=== PATIENT | female | born 1950 | race Caucasian/White ===

== ENCOUNTER 2016-11-09 10:17 | Observation (INO) | payer MEDICARE, MEDICAID ==
[~2016-11-09] VITALS: Ht 165.1 cm; Wt 44.9 kg
[~2016-11-09 10:17] MED LIST: AMLO5TAB PO; APAP ARTHRITIS650 MG PO; ARTHRITIS PAIN PO; ASPIRIN81 MG PO; AZITHROMYCIN250 M1 PO; EQUATE ARTHRITIS PO; IBUPROFEN200 MG PO; NOMEDS *; OMEPRAZOLE20 M1 PO; OMNICEF 300 MG300 MG PO; PREDNISONE 10MG10 MG PO; PREDNISONE 20MG20 MG PO; PREDNISONE20 MG PO; PROMETHAZINE D240 ML PO; SYMBICORT1 AE1 IH; TRAMADOL 50MG T50 MG PO; VENTOLIN H0.09 MG/AC IH; ZITHROMAX TRI-500 MG PO; ZITHROMAX Z-PA250 M1 PO; ZITHROMAX Z-PA250 M2 PO
[2016-11-09 10:19] VITALS: BP 14/76; BP 140/76
--- NOTE | 2016-11-09 10:30 | Emergency Room Report ---
History of Present Illness Time Seen by [id number] Presenting Problem in Triage Pt arrived:Wheelchair Presenting Problem:PT C/O OF CHEST PAIN THAT STARTED THIS AM AROUND 0830. PAIN IS MIDSTERNAL SQUEEZING IN NATURE. 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 N Clinical Suspician of Infection? N Mental Status: 1 - Regular (Normal Baseline) Sepsis Risk:Possible Sepsis Risk Have you (or family members/close friends) recently traveled outside the [place]? N If Yes, where/when: Have you had exposure to infectious disease within the past month? N TB? Other? Specify: Source patient, RN notes reviewed, family, RN/MD Exam Limitations no limitations Comment This 66-year-old feel patient arriving to the emergency room with midsternal chest pain radiating to the interscapular area since 8:30 AM, grade 11/10. She took 4 baby aspirins which partially relieved her pain to 5/10. Patient has a history of interstitial lung disease, with occasional pleuritic type chest pains, however she advised this type of chest pain is totally different from anything she has ever experienced before. She is also complaining with some diaphoresis and mild shortness of breath with exertion. Patient denies any previous cardiac workup, any previous history of coronary artery disease. She is not oxygen dependent. Cardiac Chest Pain Chest pain indicative of cardiac Yes Timing/Duration 1-3 hours Severity/Quality severe Location central Chest Pain Radiation no radiation Activities at Onset light activity Modifying Factors worse with lying down, worse with movement, improves with oxygen, worse with palpation, improves with rest Timing/Duration this morning Severity moderate Modifying Factors Improves With: oxygen, rest. Worsens With: movement, palpatioin, lying down. Associated Symptoms chest pain, weakness ALLERGIES Coded Allergies: clindamycin (I-HIVES 11/03/16) Home Medications Discontinued Scripts Azithromycin (Zithromax) 250 MG PO DAILY #6 TAB Prov: 03/21/16 DC: 11/09/161747 Prednisone (Prednisone 20MG) 20 MG PO DAILY #5 TAB Prov: 03/21/16 DC: 08/14/17 1748 Reported Medications Aspirin 81 MG PO DAILY Amlodipine Besylate (Amlodipine) 5 MG PO DAILY BUDESONIDE/FORMOTEROL FUMARATE (Symbicort 160-4.5 Mcg Inhaler) 1 PUFF IH BID Indomethacin 50 MG PO TID #45 Famotidine (Famotidine 20MG) 20 MG PO BID #60 History Medical History General CAD? No Angina: No [place]: No Hypertension? Yes Hyperlipidemia? No CHF? No DVT? No PE? No COPD? No Asthma? No Anemia? No GERD? Yes Gastric ulcers? Yes GI Bleed? No Hernia? No Thyroid Problems? No Hypothyroidism? No CVA? Yes Seizures? No Diabetes? No Renal Insuffiency? No End Stage Renal Disease? No UTI? No Stones? No BPH? No GB Disease: No Nephritic Syndrome? No Asplenia? No Hepatitis? No Sickle Cell Disease? No Arthritis? Yes Migraines? No Cataracts? Yes Glaucoma? No MRSA? No TB? No Cancer? No More? Yes Additional hx: interstitial lung disease - followed by Dr Malcolm DURAN G[facility] [employer]GIA Immunization Hx DT/Tetanus Unknown Flu 2015-17FSN Pneumonia Received In Past Surgical Hx Previous Surgery?Y CARARACT RIGHT EYE Family History Family Hx Diabetes Yes CAD No Hypertension Yes Hyperlipidemia No Cancer Yes TB No Social History Smoking Hx Smoker: Never Smoker Tobacco: No Packs/day N/A Alcohol Alcohol: No Review of Systems All Other Systems Reviewed and Negative Cardiovascular chest pain Physical Exam Vital Signs Vital Signs Date Time Temp Pulse Resp B/P Pulse O2 O2 Flow FiO2 Ox Delivery Rate 11/09 1419 99.0 105 18 141/65 96 ROOM AIR 11/09 1412 99.0 77 23 131/37 97 11/09 1403 105 11/09 1403 99.0 105 18 141/65 11/09 1403 97 ROOM AIR 11/09 1320 77 23 131/37 97 11/09 1232 77 23 128/62 97 11/09 1152 77 23 139/69 97 11/09 1111 97 11/09 1109 99.0 90 23 146/66 97 11/09 1019 99.6 108 20 140/76 99 General Appearance normal appearance, WD/WN, no apparent distress Neck normal inspection, non-tender, supple, full range of motion Respiratory Status Yes: trachea midline, chest symmetrical, non tender chest. No: respiratory distress. Lung Sounds bilateral: normal breath sounds, lungs clear. 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 No Comment 1145am - case discussed with Dr. Choudhury, advised of patient's presentation, findings, comorbid conditions, agreeable with admission. Dr. Choudhury requested cardiology to be contacted and consulted on this case. 1150am - case discussed with LULY Negron who will evaluate patient in the ER and coordinate care with Dr. Juno Perkins. Care transferred to Dr. Choudhury and Dr. Perkins at this time. I will write temporary, breech, admission orders per hospital protocol. Patient's arrival to the floor that units of they will contact PCP/conveyor installer in order to obtain full inpatient admission orders. Prior to transfer the floor the patient will have a CT scan of the thorax to rule out a PE. She appears medically stable, in no acute distress at this time. Results/Orders Laboratory Tests 11/09/16 1416: Creatine Kinase 68, CK-MB (CK-2) Rel Index 1.2, CK and CKMB Interp 0.8, Troponin I < 0.02 11/09/16 1025: B-Natriuretic Peptide 9, Amylase 46, Lipase 83, TSH 4.37 H, Free T4 Index 5.2 L, Thyroxine (T4) 6.6, T3 Uptake 32 11/09/16 1025: Sodium 143, Potassium 3.9, Chloride 107, Carbon Dioxide 28, BUN 20 H, Creatinine 0.7, Estimated Creat Clear 56, Estimated GFR (MDRD) 83, Glucose 90, Calcium 9.0, Total Bilirubin 0.8, AST 18, ALT 16, Alkaline Phosphatase 95, Creatine Kinase 68, CK and CKMB Interp 1.1, Troponin I < 0.02, Total Protein 7.5 , Albumin 3.4, Globulin 4.1 H, Albumin/Globulin Ratio 0.8 L, PT 10.0, INR 0.93 , APTT 26.8, D-Dimer 478 *H, WBC 17.9 H, RBC 4.42, Hgb 11.6 L, Hct 37.1, MCV 83.9, RDW 17.4, Plt Count 298, Gran % 84.5 H, Gran # 15.1 H, Total Counted 100 , Lymphocytes % 11.2, Monocytes % 4.3, Neutrophils 80 H, Lymphocytes (Manual) 15, Lymphocytes # 2.0, Monocytes (Manual) 5, Monocytes # 0.8, Platelet Estimate NORMAL, PUBS MCHC 31.3 L, MCH 26.2 L Current Medication Orders Sig/Lul Start time Last Medication Dose Route Stop Time Status Admin Aspirin 324 MG ONCE ONE 11/09 1045 DC 11/09 PO 11/09 1046 1043 Aspirin 0 .STK-MED ONE 11/09 1041 DC .ROUTE Sodium Chloride 10 ML PRN PRN 11/09 1030 DCD IV 11/10 1023 Orders Procedure Date/time Status [id number] FAT/LO CHO/SUSY 11/09 D Active ADMITTED PT IS ACTUALLY IN BED 11/09 1420 Active CARDIAC ENZYMES 11/09 1400 Complete OP COURTSEY MEAL 11/[address] CHEST W/PE PROTOCOL REQ 11/09 1142 Complete DIFFERENTIAL-WBC 11/09 1025 Complete ELECTROCARDIOGRAM REQUEST 11/09 1023 Active IV SALINE LOCK 11/09 1023 Active OXYGEN PER NURSE 11/09 1023 Active FLAVORINGS COMPOUNDER 11/09 1023 Active TROPONIN I 11/09 1023 Complete THYROID PANEL 2 (WITH TSH) 11/09 1023 Complete PARTIAL THROMBOPLASTIN TIME 11/09 1023 Complete PROTHROMBIN TIME 11/09 1023 Complete LIPASE 11/09 1023 Complete D-DIMER 11/09 1023 Complete CPK 11/09 1023 Complete COMPLETE METABOLIC PANEL 11/09 1023 Complete CKMB 11/09 1023 Complete CBC WITH AUTO DIFF 11/09 1023 Complete BRAIN NATRIURETIC PEPTIDE 11/09 1023 Complete AMYLASE 11/09 1023 Complete ADMIT PATIENT 11/09 UNK Active 12 LEAD EKG-BESSON (INITIAL) 11/09 UNK Active PULSE OXIMETRY REQUEST 11/09 UNK Active OXYGEN REQUEST 11/09 UNK Active VITAL SIGNS 11/09 UNK Active PRODUCT TRAINER 11/09 UNK Active POM NURSE GABRIEL JOE ORDER 11/09 UNK Active CODE STATUS 11/09 UNK Active PATIENT ACTIVITY ORDER 11/09 UNK Active SPECIALTY CLINIC PHYS CONSULT 11/09 UNK Active CM/EKG CM/activities therapist Rhythm Normal Sinus Rhythm Rate 88 Ectopy No Comments No acute ischemic changes EKG rate, NSR, rhythm, no evid. of ischemic chgs, no ectopy, normal QRS, normal RI, no EKG for comparison, non-spec. ST/Twave chgs, ST elevation, ST depression, LBBB, RBBB, ectopy, abnormal Q waves XRAY/CT/US XRAY/CT/US 1 XRAY chest XR interpretation by reviewed by me, discussed w/radiologist Xray Results no infiltrates, normal heart size, no hematoma seen XRAY/CT/US 2 CT head, chest CT interpretation by discussed w/radiologist CT Results no pulmonary embolism, see radiologist's report Consult MD Physician Consult Consult/PCP Dr. Perkins/LULY Negron HILARY Score for N-Stemi/Angina HILARY N-STEMI SCORE HILARY N-STEMI SCORE Response Value Age of patient 65 yrs or more 1 Number of risk factors for CAD Presence of less than 3 0 Prior coronary artery stenosis (seen in angiography) Less than 50% 0 ST-Segment deviation on ECG (>1 min) Absent 0 Prior aspirin intake ASA intake in last 7 days 1 Severe anginal chest pain No or 1 episode in 24h 0 Elevated cardiac markers(CK-MB or troponin) Absent 0 Total 2 Risk Stratification 0-2= Low Risk Patients Departure Departure Time of Disposition 1205 Disposition Still a Patient Clinical Impression Primary Impression: Chest pain Qualifiers: Chest pain type: unspecified Qualified Code: R07.9 - Chest pain, unspecified Condition STABLE Referrals Dewayne Choudhury MD (Family) Prescriptions Current Visit Scripts Omeprazole (Omeprazole 20MG) 20 MG PO DAILY #30 CAP Ref 1 ED Critical Care Critical Care No at 0900
--- NOTE | 2016-11-09 10:30 | Emergency Room Report ---
History of Present Illness Time Seen by [id number] Presenting Problem in Triage Pt arrived:Wheelchair Presenting Problem:PT C/O OF CHEST PAIN THAT STARTED THIS AM AROUND 0830. PAIN IS MIDSTERNAL SQUEEZING IN NATURE. 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 N Clinical Suspician of Infection? N Mental Status: 1 - Regular (Normal Baseline) Sepsis Risk:Possible Sepsis Risk Have you (or family members/close friends) recently traveled outside the [place]? N If Yes, where/when: Have you had exposure to infectious disease within the past month? N TB? Other? Specify: Source patient, RN notes reviewed, family, RN/MD Exam Limitations no limitations Comment This 66-year-old feel patient arriving to the emergency room with midsternal chest pain radiating to the interscapular area since 8:30 AM, grade 11/10. She took 4 baby aspirins which partially relieved her pain to 5/10. Patient has a history of interstitial lung disease, with occasional pleuritic type chest pains, however she advised this type of chest pain is totally different from anything she has ever experienced before. She is also complaining with some diaphoresis and mild shortness of breath with exertion. Patient denies any previous cardiac workup, any previous history of coronary artery disease. She is not oxygen dependent. Cardiac Chest Pain Chest pain indicative of cardiac Yes Timing/Duration 1-3 hours Severity/Quality severe Location central Chest Pain Radiation no radiation Activities at Onset light activity Modifying Factors worse with lying down, worse with movement, improves with oxygen, worse with palpation, improves with rest Timing/Duration this morning Severity moderate Modifying Factors Improves With: oxygen, rest. Worsens With: movement, palpatioin, lying down. Associated Symptoms chest pain, weakness ALLERGIES Coded Allergies: clindamycin (I-HIVES 11/03/16) Home Medications Discontinued Scripts Azithromycin (Zithromax) 250 MG PO DAILY #6 TAB Prov: 03/21/16 DC: 11/09/161747 Prednisone (Prednisone 20MG) 20 MG PO DAILY #5 TAB Prov: 03/21/16 DC: 08/14/17 1748 Reported Medications Aspirin 81 MG PO DAILY Amlodipine Besylate (Amlodipine) 5 MG PO DAILY BUDESONIDE/FORMOTEROL FUMARATE (Symbicort 160-4.5 Mcg Inhaler) 1 PUFF IH BID Indomethacin 50 MG PO TID #45 Famotidine (Famotidine 20MG) 20 MG PO BID #60 History Medical History General CAD? No Angina: No [place]: No Hypertension? Yes Hyperlipidemia? No CHF? No DVT? No PE? No COPD? No Asthma? No Anemia? No GERD? Yes Gastric ulcers? Yes GI Bleed? No Hernia? No Thyroid Problems? No Hypothyroidism? No CVA? Yes Seizures? No Diabetes? No Renal Insuffiency? No End Stage Renal Disease? No UTI? No Stones? No BPH? No GB Disease: No Nephritic Syndrome? No Asplenia? No Hepatitis? No Sickle Cell Disease? No Arthritis? Yes Migraines? No Cataracts? Yes Glaucoma? No MRSA? No TB? No Cancer? No More? Yes Additional hx: interstitial lung disease - followed by Dr Malcolm DURAN GOUT TRIGEMINAL NEURALGIA Immunization Hx DT/Tetanus Unknown Flu 2015-17FSN Pneumonia Received In Past Surgical Hx Previous Surgery?Y CARARACT RIGHT EYE Family History Family Hx Diabetes Yes CAD No Hypertension Yes Hyperlipidemia No Cancer Yes TB No Social History Smoking Hx Smoker: Never Smoker Tobacco: No Packs/day N/A Alcohol Alcohol: No Review of Systems All Other Systems Reviewed and Negative Cardiovascular chest pain Physical Exam Vital Signs Vital Signs Date Time Temp Pulse Resp B/P Pulse O2 O2 Flow FiO2 Ox Delivery Rate 11/09 1419 99.0 105 18 141/65 96 ROOM AIR 11/09 1412 99.0 77 23 131/37 97 11/09 1403 105 11/09 1403 99.0 105 18 141/65 11/09 1403 97 ROOM AIR 11/09 1320 77 23 131/37 97 11/09 1232 77 23 128/62 97 11/09 1152 77 23 139/69 97 11/09 1111 97 11/09 1109 99.0 90 23 146/66 97 11/09 1019 99.6 108 20 140/76 99 General Appearance normal appearance, WD/WN, no apparent distress Neck normal inspection, non-tender, supple, full range of motion Respiratory Status Yes: trachea midline, chest symmetrical, non tender chest. No: respiratory distress. Lung Sounds bilateral: normal breath sounds, lungs clear. 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 No Comment 1145am - case discussed with Dr. Choudhury, advised of patient's presentation, findings, comorbid conditions, agreeable with admission. Dr. Choudhury requested cardiology to be contacted and consulted on this case. 1150am - case discussed with LULY Negron who will evaluate patient in the ER and coordinate care with Dr. Juno Perkins. Care transferred to Dr. Choudhury and Dr. Perkins at this time. I will write temporary, breech, admission orders per hospital protocol. Patient's arrival to the floor that units of they will contact PCP/licensed weigher in order to obtain full inpatient admission orders. Prior to transfer the floor the patient will have a CT scan of the thorax to rule out a PE. She appears medically stable, in no acute distress at this time. Results/Orders Laboratory Tests 11/09/16 1416: Creatine Kinase 68, CK-MB (CK-2) Rel Index 1.2, CK and CKMB Interp 0.8, Troponin I < 0.02 11/09/16 1025: B-Natriuretic Peptide 9, Amylase 46, Lipase 83, TSH 4.37 H, Free T4 Index 5.2 L, Thyroxine (T4) 6.6, T3 Uptake 32 11/09/16 1025: Sodium 143, Potassium 3.9, Chloride 107, Carbon Dioxide 28, BUN 20 H, Creatinine 0.7, Estimated Creat Clear 56, Estimated GFR (MDRD) 83, Glucose 90, Calcium 9.0, Total Bilirubin 0.8, AST 18, ALT 16, Alkaline Phosphatase 95, Creatine Kinase 68, CK and CKMB Interp 1.1, Troponin I < 0.02, Total Protein 7.5 , Albumin 3.4, Globulin 4.1 H, Albumin/Globulin Ratio 0.8 L, PT 10.0, INR 0.93 , APTT 26.8, D-Dimer 478 *H, WBC 17.9 H, RBC 4.42, Hgb 11.6 L, Hct 37.1, MCV 83.9, RDW 17.4, Plt Count 298, Gran % 84.5 H, Gran # 15.1 H, Total Counted 100 , Lymphocytes % 11.2, Monocytes % 4.3, Neutrophils 80 H, Lymphocytes (Manual) 15, Lymphocytes # 2.0, Monocytes (Manual) 5, Monocytes # 0.8, Platelet Estimate NORMAL, PUBS MCHC 31.3 L, MCH 26.2 L Current Medication Orders Sig/Lul Start time Last Medication Dose Route Stop Time Status Admin Aspirin 324 MG ONCE ONE 11/09 1045 DC 11/09 PO 11/09 1046 1043 Aspirin 0 .STK-MED ONE 11/09 1041 DC .ROUTE Sodium Chloride 10 ML PRN PRN 11/09 1030 DCD IV 11/10 1023 Orders Procedure Date/time Status [id number] FAT/LO CHO/SUSY 11/09 D Active ADMITTED PT IS ACTUALLY IN BED 11/09 1420 Active CARDIAC ENZYMES 11/09 1400 Complete OP COURTSEY MEAL 11/[address] CHEST W/PE PROTOCOL REQ 11/09 1142 Complete DIFFERENTIAL-WBC 11/09 1025 Complete ELECTROCARDIOGRAM REQUEST 11/09 1023 Active IV SALINE LOCK 11/09 1023 Active OXYGEN PER NURSE 11/09 1023 Active PROJECT MANAGEMENT INTERN 11/09 1023 Active TROPONIN I 11/09 1023 Complete THYROID PANEL 2 (WITH TSH) 11/09 1023 Complete PARTIAL THROMBOPLASTIN TIME 11/09 1023 Complete PROTHROMBIN TIME 11/09 1023 Complete LIPASE 11/09 1023 Complete D-DIMER 11/09 1023 Complete CPK 11/09 1023 Complete COMPLETE METABOLIC PANEL 11/09 1023 Complete CKMB 11/09 1023 Complete CBC WITH AUTO DIFF 11/09 1023 Complete BRAIN NATRIURETIC PEPTIDE 11/09 1023 Complete AMYLASE 11/09 1023 Complete ADMIT PATIENT 11/09 UNK Active 12 LEAD EKG-BESSON (INITIAL) 11/09 UNK Active PULSE OXIMETRY REQUEST 11/09 UNK Active OXYGEN REQUEST 11/09 UNK Active VITAL SIGNS 11/09 UNK Active TRANSIT PLANNING MANAGER 11/09 UNK Active POM NURSE GABRIEL JOE ORDER 11/09 UNK Active CODE STATUS 11/09 UNK Active PATIENT ACTIVITY ORDER 11/09 UNK Active SPECIALTY CLINIC PHYS CONSULT 11/09 UNK Active CM/EKG CM/route manager Rhythm Normal Sinus Rhythm Rate 88 Ectopy No Comments No acute ischemic changes EKG rate, NSR, rhythm, no evid. of ischemic chgs, no ectopy, normal QRS, normal AL, no EKG for comparison, non-spec. ST/Twave chgs, ST elevation, ST depression, LBBB, RBBB, ectopy, abnormal Q waves XRAY/CT/US XRAY/CT/US 1 XRAY chest XR interpretation by reviewed by me, discussed w/radiologist Xray Results no infiltrates, normal heart size, no hematoma seen XRAY/CT/US 2 CT head, chest CT interpretation by discussed w/radiologist CT Results no pulmonary embolism, see radiologist's report Consult MD Physician Consult Consult/PCP Dr. Perkins/LULY Negron HILARY Score for N-Stemi/Angina HILARY N-STEMI SCORE HILARY N-STEMI SCORE Response Value Age of patient 65 yrs or more 1 Number of risk factors for CAD Presence of less than 3 0 Prior coronary artery stenosis (seen in angiography) Less than 50% 0 ST-Segment deviation on ECG (>1 min) Absent 0 Prior aspirin intake ASA intake in last 7 days 1 Severe anginal chest pain No or 1 episode in 24h 0 Elevated cardiac markers(CK-MB or troponin) Absent 0 Total 2 Risk Stratification 0-2= Low Risk Patients Departure Departure Time of Disposition 1205 Disposition Still a Patient Clinical Impression Primary Impression: Chest pain Qualifiers: Chest pain type: unspecified Qualified Code: R07.9 - Chest pain, unspecified Condition STABLE Referrals Dewayne Choudhury MD (Family) Prescriptions Current Visit Scripts Omeprazole (Omeprazole 20MG) 20 MG PO DAILY #30 CAP Ref 1 ED Critical Care Critical Care No at 0900
[2016-11-09] MEDS ORDERED: INDOMETHACIN50 MG PO (10:31)
[2016-11-09] MEDS ORDERED: FAMOTIDINE 20MG20 MG PO (10:31)
[2016-11-09 10:40] LABS: HEMOGLOBIN 11.6 g/dL (12.2-16.2)
[2016-11-09 10:41] LABS: LYMPH % 11.2 % (10-50.0)
--- OUTSIDE RECORDS SUMMARY | 2016-11-09 10:42 | External Medical Summary Rpt ---
Author Author , RUFINO JOY Address Unknown Phone [email or web address] Care Team Providers Care Bonding Supervisor Name Role Phone JONAH MCKENZIE Unavailable Unavailable BESSON, BESSON Unavailable Unavailable BESSON MODESTO, BESSON Unavailable Unavailable MODESTO MARCI SHIVAM, Unavailable Unavailable MARCI SHIVAM MARCI SHIVAM, Unavailable Unavailable MARCI SHIVAM NOBLE, NOBLE Unavailable Unavailable DEREJE JUAN RAMON, Unavailable Unavailable DEREJE JUAN RAMON DEREJE JUA NRAMON, Unavailable Unavailable DEREJE JUAN RAMON SUERSH, SURESH Unavailable Unavailable SURESH ZACKARY, Unavailable Unavailable SURESH ZACKARY [facility] Unavailable Unavailable CENTER, [facility] Unavailable Unavailable CENTER, [facility] Unavailable Unavailable INC, [facility] Unavailable Unavailable HOSPITAL P, [facility], Unavailable Unavailable [facility] Unavailable Unavailable IMAGING ASS, [facility] Sarah Green MD, Unavailable Unavailable Sarah Green MD [facility], [facility] Unavailable Unavailable INTERNAL MED, [facility] KELSEY, KELSEY Unavailable Unavailable KELSEY JAM, Unavailable Unavailable KELSEY JAM KELSEY JAM, Unavailable Unavailable KELSEY JAM YOUNGMIE JR JAVED, Unavailable Unavailable MCKEMIE JR TEGAN VILLARREALKEMIE JR JAVED, Unavailable Unavailable MCKEMIE TEGAN CHELE TOD, CHELE TOD Unavailable Unavailable [facility] Unavailable Unavailable #591, [facility] ALONDRA JAVED, Unavailable Unavailable HASMUKH GARCIA III Unavailable Unavailable Purpose Continuity of Care Document - 04-04-2012 through 2016 Problems Code Diagnosis DOS Provider Status J189 PNEUMONIA 09-08-2016 [place] [facility] U[facility]PECIFIED SERV ORGANISM [facility] J219 ACUTE 09-08-2016 [facility] BRONCHIOLIT SERV IS [facility] UNSPECIFIED J672 BIRD 09-08-2016 [place] [facility] FANCIERS SERV LUNG [facility]OUND[facility] J8410 PULMONARY 09-08-2016 [place] [facility] FIBROSIS SERV UNSPECIFIED FOUNDATION R49871 OTH SPEC 09-08-2016 [facility] D/O BONE MEDICAL DENSITY IMAGING ASS STRUCTURE RT THIGH R0609 OTHER FORMS 09-08-2016 [place] [facility] OF DYSPNEA SERV [facility] Z780 ASYMPTOMATI 09-08-2016 [facility] C MEDICAL MENOPAUSAL IMAGING ASS STATE I7300 RAYNAUDS 08-03-2016 [facility] SYNDROME VALLEY WITHOUT INTERNAL GANGRENE MED K279 PEPTIC ULCR 08-03-2016 [facility] SITE UNS VALLEY UNS INTERNAL AC/CHRN W/O MED HEM/PERF Z0000 ENCOUNTER 08-03-2016 [facility] GEN ADULT VALLEY MED EXAM INTERNAL W/O MED ABNORMAL FIND Z23 ENCOUNTER 08-03-2016 [facility] FOR VALLEY IMMUNIZATIO INTERNAL N MED Z681 BODY MASS 08-03-2016 [facility] INDEX BMI VALLEY 19 OR LESS INTERNAL ADULT MED E876 HYPOKALEMIA 05-13-2016 [facility] I10 ESSENTIAL 05-13-2016 [facility] HYPERTENSIO INC N J984 OTHER 04-01-2016 [facility] DISORDERS RUSO OF LUNG INTERNAL MED R05 COUGH 03-19-2016 [facility] J679 HYPERSENSIT 09-25-2015 [facility] PNEUMONIT INC D/T UNS ORGANIC DUST R918 OTHER 09-25-2015 [facility] NONSPECIFIC MEDICAL ABNORMAL IMAGING ASS FINDING OF LUNG FIELD R0989 OTH SPEC SX 09-17-2015 [facility] & SIGNS MEDICAL INVLV THE IMAGING ASS CIRC & RESP SYS R509 FEVER 09-17-2015 [facility] UNSPECIFIED MEDICAL IMAGING ASS J28973 UNSPECIFIED 09-16-2015 [place] [facility] ASTHMA SERV UNCOMPLICAT FOUNDATION ED A048 OTHER 05-20-2015 [facility] SPECIFIED PHYSICIANS BACTERIAL GROUP INTESTINAL INFECTIONS 58095 EXTRINSIC 06-13-2014 [place] [facility] ASTHMA, SERV UNSPECIFIED FOUNDATION 4959 UNSPECIFIED 06-13-2014 [place] [facility] ALLERGIC SERV ALVEOLITIS FOUNDATION AND PNEUMONITIS 515 POSTINFLAMM 06-13-2014 [place] [facility] ATORY SERV PULMONARY FOUNDATION FIBROSIS 7109 UNSPECIFIED 06-13-2014 [place] [facility] DIFFUSE SERV CONNECTIVE F[facility]ATION TISSUE DISEASE 2768 HYPOPOTASSE 05-23-2014 [facility] ISHA RUSO INTERNAL MED 2859 UNSPECIFIED 05-23-2014 [facility] ANEMIA RUSO INTERNAL MED 486 PNEUMONIA, 05-23-2014 [facility] ORGANISM RUSO UNSPECIFIED INTERNAL MED 2830 AUTOIMMUNE 04-30-2014 [facility] ANEMIAS INC 4830 PNEUMONIA 04-11-2014 [place] [facility] DUE TO SERV MYCOPLASMA [facility]OUNDATION PNEUMONIAE 76665 DEHYDRATION 03-16-2014 [facility] 496 CHRONIC 03-16-2014 [facility] P [facility] 16603 OTHER 03-16-2014 [facility] DISEASES OF MEDICAL LUNG NOT IMAGING ASS ELSEWHERE CLASSIFIED 64636 FEVER 03-16-2014 [facility] UNSPECIFIED RUSO INTERNAL MED 64232 OTHER 03-16-2014 [facility] NONSPECIFIC MEDICAL ABNORMAL IMAGING ASS FINDING OF LUNG FIELD V1254 PERSONAL HX 03-16-2014 [facility] W/O INC RESIDUAL DEFICITS V141 PERSONAL 03-16-2014 [facility] HISTORY [facility] ALLERGY INC OTHER ANTIBIOTIC AGENT 485 BRONCHOPNEU 02-05-2014 [facility] MONIA RUSO ORGANISM INTERNAL UNSPECIFIED MED 4918 OTHER 11-29-2013 [facility] CHRONIC JAM BRONCHITIS 5168 OTH SPEC 11-13-2013 [facility] ALVEOL&IZABELA VALLEY ETOALVEOL INTERNAL PNEUMONOPAT MED HIES 58954 UNSPECIFIED 11-13-2013 [facility] RUSO ARTHROPATHY INTERNAL MULTIPLE MED SITES 14245 EXTRINSIC 09-20-2013 [facility] ASTHMA, JAM WITH EXACERBATIO N 60041 LOSS OF 05-31-2013 [facility] WEIGHT JAM 4952 BIRD-FANCIE 03-01-2013 [facility] RS LUNG JAM 6954 LUPUS 03-01-[place] [address] PECTUS 03-01-2013 [facility] EXCAVATUM JAM 48109 ACUTE 02-08-2013 [facility]ON[facility]IOLIT [facility] IS DUE OTH INC INFECTIOUS ORGANISMS 84090 SHORTNESS 01-25-2013 [facility] OF BREATH JAM 7862 COUGH 01-25-2013 [facility] 23572 UNSPECIFIED 12-19-2012 [facility]GAN RESPIRATORY ABNORMALITY 786.09 786.09 10-16-2012 [place] RESPIRATORY [facility] 98972 OTHER 10-16-2012 [facility] DYSPNEA AND TEGAN RESPIRATORY ABNORMALITI ES V12.61 V12.61 10-16-2012 [facility], Hospital PNEUMONIA (RECURRENT) V1261 PERSONAL 10-16-2012 [facility] HISTORY TEGAN PNEUMONIA RECURRENT V14.8 V14.8 10-16-2012 [facility] ALLERGY [facility] V148 PERSONAL 10-16-2012 [facility] HISTORY TEGAN ALLERGY OTH SPEC MEDICINAL AGTS V58.64 V58.64 10-16-2012 [facility] LONG-TERM([facility])USE Hospital OF NON-STEROID AL ANTI-INFLAM MATORIES V5864 LONG-TERM 10-16-2012 [facility] USE [facility] NON-STEROID AL ANTI-INFLAM MATORIES 09598 NUCLEAR 08-16-2012 [facility] SCLEROSIS SHIVAM 3669 UNSPECIFIED 08-16-2012 [facility] 3688 OTHER 07-19-2012 [facility] SPECIFIED SHIVAM VISUAL DISTURBANCE S 2410 NONTOXIC 05-02-2012 [facility]INODULAR [facility] GOITER INC 2409 GOITER, 04-18-2012 DEREJE UNSPECIFIED JUAN RAMON 481 PNEUMOCOCCA 04-18-2012 [facility] L PNEUMONIA [facility] INC 5183 PULMONARY 04-14-2012 DEREJE EOSINOPHILI JUAN RAMON A V069 NEED PROPH 04-14-2012 [facility] VACCINATION [facility]ALTH W/UNSPEC CENTER COMB VACCINE I10 ESSENTIAL (PRIMARY) HYPERTENSIO N R06.02 SHORTNESS OF BREATH R53.83 OTHER FATIGUE Z78.0 ASYMPTOMATI C MENOPAUSAL STATE Allergies, Adverse Reactions, Alerts Type Drug Allergy Adverse Reaction to Substance Substance Reaction Severity Clindamycin I-HIVES Unknown Medications Na ND Rx Da Fi Fi Am Da Di Ph RX Ph St me C No te ll ll ou ys ag ar # ys at rm s nt no ma ic us Or Da si cy ia de te s n re d IP 00 07 0 No RA 48 -2 T- 70 1- Lo AL 20 20 ng BU 10 13 er T 1 0. Ac 5- ti 3( ve 2. 5) MG /3 ML Sa 63 07 0 No li 80 -2 ne 70 1- Lo 10 20 ng Fl 07 13 er us 5 h Ac 10 ti ML ve Sy ri ng e Immunization Name Date Rout CVX Reac Dose Comm Prov Is Faci e tion ent ider Refu lity Give sed n PCV1 05-0 133 CURRY No LICK 3 8-20 ENCE ING VACC 17 VALL INE EY FOR INTE INTR RNAL AMUS MED CULA R USE IIV 10-1 135 WAL- No WAL- VACC 3-20 [facility] INE 16 PRES PHAR PHAR ERV STACEY STACEY FREE #591 #591 INCR EASE D AG CONT ENT IM PPSV - 33 LADI No LADI 23 7-20 W[facility]FR[facility] WILFRID VACC 13 CO CO INE HEAL HEAL 2 TH TH YRS CENT CENT OR ER ER OLDE R FOR SUBQ /IM USE IIV3 - 141 ALDI No LADI 7-20 WILFRID WILFRID VACC 13 CO CO INE HEAL HEAL SPLI TH TH T CENT CENT VIRU ER ER S 0.5 ML DOSA GE IM USE Vital Signs 10-16-2012 14:18 Name Value Interpretat Reference Comment ion Range Body 98.7 [degF] Temperature BP 70 mm[Hg] Diastolic BP Systolic 134 mm[Hg] Heart 66 /min Rate/Pulse O2% 98 % Respiratory 18 /min Rate 10-16-2012 12:11 Name Value Interpretat Reference Comment ion Range BP 78 mm[Hg] Diastolic BP Systolic 159 mm[Hg] Heart 91 /min Rate/Pulse Respiratory 20 /min Rate 10-16-2012 11:31 Name Value Interpretat Reference Comment ion Range O2% 98 % Results Labs Lab Lab Date Result Refere Interp Status Commen Order Detail nces retati t Range on D Dimer PPP (10-16-2012 12:50) D Dimer 236 0-400 complet PPP 013 ng/mL ed 12:50 CBC with AUTO DIFF (10-16-2012 12:50) WBC # 10-16-2 5.5 4.8-10. complet Bld 013 K/MM3 8 ed Auto 12:50 RBC # 10-16-2 4.45 4.2-5.4 complet Bld 013 M/mm3 ed Auto 12:50 Hgb 10-16- 11.9 12.2-16 complet Bld-mCn 013 g/dL .2 ed c 12:50 Hct Fr 37.8 % 37.0-47 complet Bld 013 .0 ed 12:50 MCV RBC 84.9 fl 82.2-97 complet 013 .8 ed 12:50 MCH RBC 10-16-2 26.8 pg 27-31.2 complet Qn 013 ed Auto 12:50 MEAN 31.6 31.8-35 complet CORPUSC 013 g/dl .4 ed ULAR 12:50 HGB CONC RDW RBC 10-16- 15.0 % 11.5-17 complet Auto 013 .5 ed 12:50 Platele 07-21-2 390 142-424 complet t Bld 013 K/mm3 ed Ql 12:50 Manual MEAN -21-2 7.2 fl 7.4-10. complet PLATELE 013 4 ed T 12:50 VOLUME Granulo 07-21-2 50.9 % 37.0-80 complet cytes 013 .0 ed Fr Bld 12:50 Auto LYMPH % 07-21-2 43.0 % 10-50.0 complet 013 ed 12:50 Monocyt 07-21-2 5.9 % 1.7-9.3 complet es Fr 013 ed Bld 12:50 Auto Eosinop 07-21-2 0.0 % 0.1-12. complet hil Fr 013 0 ed Bld 12:50 Auto Basophi 07-21-2 0.1 % 0.1-2.0 complet ls Fr 013 ed Bld 12:50 Auto Granulo 07-21-2 2.8 1.8-7.8 complet cytes # 013 K/mm3 ed Bld 12:50 Auto Lymphoc 07-21-2 2.4 0.7-4.5 complet ytes Fr 013 K/mm3 ed Bld 12:50 Auto Monocyt 07-21-2 0.3 0.1-1.0 complet es # 013 K/mm3 ed Bld 12:50 Auto Eosinop 07-21-2 0.0 0.0-0.4 complet hil # 013 K/mm3 ed Bld 12:50 Auto Basophi 07-21-2 0.0 0-0.2 complet ls # 013 K/MM3 ed Bld 12:50 Auto Procedures Procedure DOS Code Location Performer Comment DXA BONE 42954 [facility] NOBLE DENSITY 7 MEDICAL STUDY 1/> IMAGING SITES ASS AXIAL SKEL IM ADM 03971 [facility] SURESH PRQ ID 7 VALLEY SUBQ/IM INTERNAL NJXS 1 MED VACCINE PCV13 13243 [facility] VACCINE 7 VALLEY FOR INTERNAL INTRAMUSC MED ULAR USE ANNUAL G0439 [facility] WELLNESS 7 VALLEY VST; INTERNAL PERSONALI MED ZED PPS SUBSQT VST COLLECTIO 22236 [facility] Ruiz VENOUS 7 [facility] BLOOD INC INC VENIPUNCT URE GENERAL 02-15-201 42724 [facility] PANEL INC INC LIPID 73267 R[facility] DURAN PANEL 7 [facility] INC INC RADIOLOGI 56894 AMPARO MCKENZIE C EXAM 6 MEDICAL CHEST 2 IMAGING VIEWS ASS FRONTAL&L ATERAL IIV 95544 [facility] VACCINE 6 PHARMACY PHARMACY PRESERV #591 #591 FREE INCREASED AG CONTENT IM ADMINISTR G0008 [facility] ATION OF 6 PHARMACY PHARMACY INFLUENZA #591 #591 VIRUS VACCINE COLLECTIO 76643 [facility] DURAN N VENOUS 6 [facility] BLOOD INC INC VENIPUNCT URE IMMUNODIF 17360 [facility] DURAN FUSION 6 [facility] GEL INC INC DIFFUSION QUAL EA AG/ANTBDY ALLERGEN 44395 [facility] DURAN SPECIFIC 6 [facility] IGG INC INC EVELYN/SEMI EVELYN EA ALLERGEN CT THORAX 23860 [facility] DURAN W/O 6 [facility] CONTRAST INC INC MATERIAL ANTIBODY 97081 R[facility] DURAN ASPERGILL 6 [facility] US INC INC RADIOLOGI 90206 R[facility] DURAN C EXAM 6 [facility] CHEST 2 INC INC VIEWS FRONTAL&L ATERAL PRESSURIZ 43860 [facility] DURAN ED/NONPRE 6 [facility] SSURIZED INC INC INHALATIO N TREATMENT SPMTRY 22278 EFE KELSEY W/VC 6 MEDICAL JAM EXPIRATOR SERV Y LESLYE FOUNDATIO W/WO MXML N VOL VNTJ BRNCDILAT 51769 [facility] RSPSE 6 [facility] H[facility] SPMTRY INC INC PRE&[place] [address] [facility] DIFFUSING 6 [facility] CAPACITY INC INC NONINVASI 46235 [facility] DURAN VE 6 [facility] EAR/PULSE INC INC OXIMETRY MULTIPLE DETER PULMONARY 44905 [place] LOW STRESS 6 MEDICAL JAM TESTING SERV SIMPLE FOUNDATIO N GAS 54308 [facility] D[facility] DILUT/WAS 6 [facility] HOUT LUNG INC INC VOL W/WO DISTRIB VENT&V IAADIADOO 03129 [facility] BESSON [address] [facility] INFLUENZA INTERNAL MED THERAPEUT 29463 [facility] MARYLIN IC [address] [facility] PROPHYLAC INTERNAL TIC/DX MED INJECTION SUBQ/IM INJECTION J0696 [facility] 5 [facility] CEFTRIAXO INTERNAL INTERNAL NE SODIUM MED MED PER 250 MG BLOOD 29064 [facility] COUNT 5 [facility] COMPLETE INC INC AUTO&AUTO DIFRNTL WBC ANTINUCLE 19600 [facility] DURAN AR 5 [facility] ANTIBODIE INC INC S HERBER BASIC 97301 [facility] DURAN METABOLIC 5 [facility] PANEL INC INC CALCIUM TOTAL ANTIBODY 18966 [facility] D[facility] IDENTIFIC 5 [facility] ATION INC INC LEUKOCYTE ANTIBODIE S ANTIHUMAN 40023 [facility] D[facility]AN GLOBULIN 5 [facility] DIRECT INC INC EACH ANTISERUM COLLECTIO 49534 [facility] DURAN N VENOUS 5 [facility] BLOOD INC INC VENIPUNCT URE COMPREHEN 58482 [facility] DURAN SIVE 4 [facility] METABOLIC INC INC PANEL BLOOD 45030 [facility] D[facility] COUNT 4 [facility] COMPLETE INC INC AUTO&AUTO DIFRNTL WBC HOSP[facility] 94726 [facility] DISCHARGE 4 [facility] INTERNAL MANAGEMEN MED T 30 MIN/< SBSQ [address] [place] [address] CARE/DAY INTERNAL 35 MED MINUTES SBSQ 48043 [facility] [employer] [facility] [facility] [address] [facility] CARE/DAY INTERNAL 35 MED MINUTES IAADIADOO 61108 [facility] [address] [facility] INFLUENZA INTERNAL MED INITIAL [address] [place] [address] CARE/DAY INTERNAL 50 MED MINUTES RADIOLOGI 26017 [facility] DEREJE Pierre EXAM 4 MEDICAL JUAN RAMON CHEST 2 IMAGING VIEWS ASS FRONTAL&L ATERAL ECG 68698 [facility] COULTER ROUTINE 4 [facility] W/LEAST P 12 LDS I&R ONLY INJECTION J0696 [facility] SERAFINSON 4 [facility] CEFTRIAXO INTERNAL NE SODIUM MED PER 250 MG INJECTION J3301 [facility] SERAFINSON 4 [facility] TRIAMCINO INTERNAL LONE MED ACETONIDE NOS 10 MG THERAPEUT 79879 [facility] MARYLIN IC 4 [facility] PROPHYLAC INTERNAL TIC/DX MED INJECTION SUBQ/IM COMPREHEN 24333 [facility] DURAN SIVE 4 [facility] METABOLIC INC INC PANEL CT THORAX 11730 [facility] D[facility] W/O 4 [facility] CONTRAST INC INC MATERIAL NONINVASI 79759 [facility] DURAN VE 4 [facility] EAR/PULSE INC INC OXIMETRY SINGLE DETER BRNCDILAT 29968 [facility] RSPSE 4 [facility] SPMTRY INC INC PRE&POST- BRNCDILAT ADMN GAS 27555 RNEEE DURAN DILUT/WAS 4 [facility] HOUT LUNG INC INC VOL W/[place] DISTRIB VENT&[place] [address] R[facility] DURAN DIFFUSING 4 [facility] CAPACITY INC INC CT THORAX 37383 DEREJE DEREJE W/O 3 JUAN RAMON JUAN RAMON CONTRAST MATERIAL ANTINUCLE 66065 [facility] DURAN AR 3 [facility] ANTIBODIE INC INC S HERBER ANTIBODY 12067 R[facility]EE DURAN ASPERGILL 3 [facility] US INC INC BLOOD 76257 R[facility]URAN COUNT 3 [facility] COMPLETE INC INC AUTO&[place] [address] R[facility] DURAN GAMMAGLOB 3 [facility] ULIN IGA INC INC IGD IGG IGM EACH SEDIMENTA 78107 [facility] DURAN TION RATE 3 [facility] RBC INC INC NON-AUTOM ATED IMMUNODIF 29916 R[facility]EE DURAN FUSION 3 [facility] GEL INC INC DIFFUSION QUAL EA AG/ANTBDY ALLERGEN 73589 [facility] DURAN SPECIFIC 3 [facility] IGG INC INC EVELYN/SEMI EVELYN EA ALLERGEN COMPREHEN 65515 R[facility] DURAN SIVE 3 [facility] [place] [address] R[facility] GAMMAGLOB 3 [facility] ULIN IGE INC INC GAS 65405 RENEE DURAN DILUT/WAS 3 [facility] HOUT LUNG INC INC VOL W/WO DISTRIB VENT&V BRNCDILAT 14318 R[facility] DURAN RSPSE 3 [facility] SPMTRY INC INC PRE&POST- BRNCDILAT ADMN ECHO 38804 R[facility] DURAN TTHRC R-T 3 [facility] 2D INC INC W/WOM-MOD E COMPL SPEC&COLR D BLOOD 81795 [facility] DURAN COUNT 3 [facility] COMPLETE INC INC AUTO&AUTO DIFRNTL WBC ECG 30665 MELISA HARMON ROUTINE 3 EMERGENCY ECG SERVICES W/LEAST 12 LDS I&R ONLY RADIOLOGI 41047 R[facility] DURAN C EXAM 3 [facility] CHEST 2 INC INC VIEWS FRONTAL&L ATERAL PRESSURIZ 87242 [facility] DURAN ED/NONPRE 3 [facility] SSURIZED INC INC INHALATIO N TREATMENT FIBRIN 05525 R[facility]EE DURAN DGRADJ 3 [facility] PRODUCTS INC INC D-DIMER QUAL/SEMI EVELYN ECG 70669 RENEE DURAN ROUTINE 3 [facility] ECG INC INC W/LEAST 12 LDS TRCG ONLY W/O I&R POSTERIOR V2632 R[facility] DURAN CHAMBER 3 [facility] INTRAOCUL INC INC AR LENS CATARACT 44989 [facility] REMOVAL 3 SHIVAM SHIVAM INSERTION OF LENS OPH BMTRY 06000 [facility] US 3 SHIVAM SHIVAM ECHOGRAPY A-SCAN IO LENS PWR ANTIONETTE OPHTH 46997 [facility] MEDICAL 3 SHIVAM SHIVAM XM&EVAL COMPRE NEW PT 1/> VST IODINE A9516 [facility] FRYEON I-123 3 [facility] SODIUM INC INC IODIDE DX PER 100 UCI TO 999 THYROID 02722 R[facility]EE DURAN UPTAKE 3 [facility] W/BLOOD INC INC FLOW SNGLE/MUL T EVELYN MIC US SOFT 45984 [facility] D[facility] TISSUE 3 [facility] HEAD & INC INC NECK REAL TIME IMGE DOCM RADIOLOGI 56150 DEREJE JESUSUTCHER C EXAM 3 JUAN RAMON JUAN RAMON CHEST 2 VIEWS FRONTAL&L ATERAL GENERAL 32350 [facility] DURAN [facility]ALTH 3 [facility] PANEL INC INC IIV3 42246 [facility] DURAN VACCINE 3 [facility] SPLIT CENTER CENTER VIRUS 0.5 ML DOSAGE IM USE PPSV23 22454 R[facility] DURAN VACCINE 2 3 [facility] YRS OR CENTER CENTER OLDER FOR SUBQ/IM USE RADIOLOGI 75160 RENEE DURAN C EXAM 3 [facility] CHEST 2 INC INC VIEWS FRONTAL&[place] [address] RENEE DURAN FREE 3 [facility] THYROXINE INC INC HOSPITAL 36252 [facility] 3 [place] [facility] DAY MANAGEMEN T 30 MIN/< SBSQ 37552 [facility] 3 [place] [facility] CARE/DAY 25 MINUTES RADIOLOGI 41104 DEREJE DEREJE C 3 JUAN RAMON JUAN RAMON EXAMINATI ON CHEST SINGLE [place]IEW FRONTAL INITIAL 02755 [facility] 3 [facility] CARE/DAY 50 MINUTES Encounters Encounter Start End Date Code Location Performer Type Date OFFICE 09697 [facility] TRAMMELL 7 7 MEDICAL T VISIT SERV 25 FOUNDATIO MINUTES N OFFICE 44987 [facility] 7 [facility] V[facility]NAL 15 MED MINUT[facility] - 7 7 [facility] T OFFICE 32737 [facility] 7 7 [facility] T VISIT INTERNAL 15 MED MINUTES OFFICE 53961 [facility] 7 7 [facility] T VISIT INTERNAL 25 MED MINUTES [facility]OSP[facility] RENEE - 6 6 [facility] [place] 01270 [place] [facility] 6 6 MEDICAL JAM T VISIT SERV 15 FOUNDATIO MINUTES N HOSPITAL RENEE - OTHER 6 6 [facility] [place] 05330 [place] [facility] 6 6 MEDICAL JAM T VISIT SERV 15 FOUNDATIO MINUTES N HOSPITAL RENEE - 6 6 [facility] - 6 6 [facility] T OFFICE 10427 [facility] CHELE TOD OUTPATIEN 6 6 PHYSICIAN T VISIT S GROUP 10 MINUTES OFFICE 00057 [facility] CHELE TOD OUTPATIEN 6 6 PHYSICIAN T VISIT S GROUP 10 MINUTES OFFICE 79334 [facility] 5 5 [facility] [place] T VISIT INTERNAL 15 MED MINUTES OFFICE 98389 [place] [facility] 5 5 MEDICAL JAM T VISIT SERV 25 FOUNDATIO MINUTES N OFFICE 91774 [facility] 5 5 [facility] [place] T VISIT INTERNAL 15 MED MINUTES [facility] RENEE - 5 5 [facility] [place]ICE 22099 [place] [facility] 5 5 MEDICAL JAM T VISIT SERV 25 FOUNDATIO MINUTES N OFFICE 12800 [facility] 4 4 [facility] ZACKARY T VISIT INTERNAL 15 MED MINUTES [facility]OSPITAL RENEE - 4 4 [facility] RENEE [facility] 4 4 [facility] OFFICE 35098 [facility] 4 4 [facility] T VISIT INTERNAL 15 MED MINUTES OFFICE 83374 [facility] OUTPATIEN 4 4 JAM JAM T VISIT 15 MINUTES HOSPITAL RENEE - 4 4 [facility] T OFFICE 61793 [facility]IN[facility] OUTPATI[facility] [address] [facility] T VISIT INTERNAL 15 MED MINUTES HOSPITAL RENEE - 4 4 [facility] T OFFICE 39714 [facility] OUTPATIEN 4 4 YAZMIN ARCE T VISIT 25 MINUTES OFFICE 57956 [facility] OUTPATI[facility] 4 4 YAZMIN JAM T VISIT 25 MINUTES [facility]OSPITAL R[facility]EE - 4 4 [facility] T OFFICE 49104 [facility] OUTPATIEN 3 3 YAZMIN JAM T VISIT 25 MINUTES HOSPITAL RENEE - 3 3 [facility] R[facility]EE - 3 3 [facility] T OFFICE 96134 [facility] CONSULTAT 3 3 JAM JAM ION NEW/ESTAB PATIENT 80 MIN OFFICE 62288 [facility] OUTPATIEN 3 3 JR TEGAN JAVED T VISIT 15 MINUTES OFFICE 04525 [facility] OUTPATIEN 3 3 JR TEGAN JAVED T VISIT 15 MINUTES HOSPITAL RENEE - 3 3 [facility] T OFFICE 91829 [facility] M[facility] OUTPATIEN 3 3 JR TEGAN JAVED T VISIT 15 MINUTES Emergency HOLLAND Green MD (ER) 3 11:35 3 14:17 [facility] EMERGENCY 92862 RENEE 3 3 [facility] T VISIT HIGH/URGE NT [facility] RENEE - 3 3 [facility] OUT[facility] T EMERGENCY 01123 MELISA HARMON DEPT 3 3 EMERGENCY VISIT SERVICES HIGH SEVERITY& THREAT [facility] RENEE [facility] 3 3 [facility] OUT[facility]EN [facility] RENEE - 3 3 [facility] OUTPAT[facility]EN [facility] RENEE [facility] 3 3 [facility] OUTPATIEN [facility] OFFICE 03966 [facility] 3 3 [facility]ISIT 15 MINUTES HOSPITAL RENEE - 3 3 [facility] OUT[facility] T EMERGENCY 01404 ALONDRA CANTU DEPT 3 3 III TEGAN III TEGAN VISIT HIGH SEVERITY& THREAT FUNJ
--- OUTSIDE RECORDS SUMMARY | 2016-11-09 10:42 | External Medical Summary Rpt ---
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 Name Role Phone JONAH MCKENZIE Unavailable Unavailable BESSON, BESSON Unavailable Unavailable BESSON MODESTO, BESSON Unavailable Unavailable MODESTO MARCI SHIVAM, Unavailable Unavailable MARCI SHIVAM MARCI SHIVAM, Unavailable Unavailable MARCI SHIVAM NOBLE, NOBLE Unavailable Unavailable DEREJE JUAN RAMON, Unavailable Unavailable DEREJE JUAN RAMON DEREJE JUAN RAMON, Unavailable Unavailable DEREJE JUAN RAMON SURESH, SURESH Unavailable Unavailable SURESH ZACKARY, Unavailable Unavailable SURESH ZACKARY [facility] Unavailable Unavailable CENTER, [facility]available [facility]available CENTER, [facility] Unavailable Unavailable INC, [facility] Unavailable Unavailable HOSPITAL P, [facility], Unavailable Unavailable [facility] Unavailable Unavailable IMAGING [facility], [facility] Sarah Green MD, Unavailable Unavailable Sarah Green MD [facility] Un[facility], [facility] Unavailable Unavailable INTERNAL MED, [facility] INTER[facility] MED KELSEY, KELSEY Unavailable [...] UNSPECIFIED SERV ORGANISM FOUNDATION J219 ACUTE 09-08-2016 [facility]CHIOLIT [facility] IS [facility]ATION UNSPECIFIED J672 BIRD 09-08-2016 [facility] FANCIERS SERV LUNG FOUNDATION J8410 PULMONARY 09-08-2016 [facility] FIBROSIS SERV UNSPECIFIED FOUNDATION N20684 OTH SPEC 09-08-2016 [place] D/O BONE MEDICAL DENSITY IMAGING ASS STRUCTURE RT THIGH R0609 OTHER FORMS 09-08-2016 [facility] OF DYSPNEA SERV FOUNDATION Z780 ASYMPTOMATI 09-08-2016 [place] C MEDICAL MENOPAUSAL IMAGING ASS STATE I7300 [...] [facility] I10 ESSENTIAL 05-13-2016 [facility] HYPERTENSIO INC N J984 OTHER 04-01-2016 [place] DISORDERS [facility] OF LUNG INTERNAL MED R05 COUGH 03-19-2016 [facility] J679 HYPERSENSIT 09-25-2015 [facility] PNEUMONIT INC D/T UNS ORGANIC DUST R918 OTHER 09-25-2015 [place] NONSPECIFIC MEDICAL ABNORMAL IMAGING ASS FINDING OF LUNG FIELD R0989 OTH SPEC SX 09-17-2015 [place] & SIGNS MEDICAL INVLV THE IMAGING ASS CIRC & RESP SYS R509 FEVER 09-17-2015 [place] UNSPECIFIED MEDICAL IMAGING ASS K46559 UNSPECIFIED 09-16-2015 [facility] ASTHMA SERV UNCOMPLICAT FOUNDATION ED A048 OTHER 05-20-2015 [facility] SPECIFIED PHYSICIANS BACTERIAL GROUP INTESTINAL INFECTIONS 72226 EXTRINSIC 06-13-2014 [facility]MA, SERV UNSPECIFIED FOUNDATION 4959 UNSPECIFIED 06-13-2014 [facility] ALLERGIC SERV ALVEOLITIS FOUNDATION AND PNEUMONITIS 515 POSTINFLAMM 06-13-2014 [facility] AT[facility] PULMONARY [facility]OUNDATION FIBROSIS 7109 UNSPECIFIED 06-13-2014 [facility] DIFFUSE SERV CONNECTIVE FOUNDATION TISSUE DISEASE 2768 HYPOPOTASSE 05-23-2014 [place] ISHA [facility] INTERNAL MED 2859 UNSPECIFIED 05-23-2014 [place] ANEMIA [facility] INTERNAL MED 486 PNEUMONIA, 05-23-2014 [place] ORGANISM [facility] UNSPECIFIED INTERNAL MED 2830 AUTOIMMUNE 04-30-2014 [place] [facility] ANEMIAS INC 4830 PNEUMONIA 04-11-2014 [facility] DUE TO SERV MYCOPLASMA [facility]OUNDATION PNEUMONIAE 44782 DEHYDRATION 03-16-2014 [facility] INC 496 CHRONIC 03-16-2014 [facility] 71571 OTHER 03-16-2014 [place] DISEASES OF MEDICAL LUNG NOT IMAGING ASS ELSEWHERE CLASSIFIED 91362 FEVER 03-16-2014 [place] UNSPECIFIED [facility] INTERNAL MED 70488 OTHER 03-16-2014 [place] NONSPECIFIC MEDICAL ABNORMAL IMAGING ASS FINDING OF LUNG FIELD V1254 PERSONAL HX 03-16-2014 [place] [facility] W/O INC RESIDUAL DEFICITS V141 PERSONAL 03-16-2014 [place] HISTORY [facility] ALLERGY INC OTHER ANTIBIOTIC AGENT 485 BRONCHOPNEU 02-05-2014 [place] MONIA [facility] ORGANISM INTERNAL UNSPECIFIED MED 4918 OTHER 11-29-2013 [facility] CHRONIC JAM BRONCHITIS 5168 OTH SPEC 11-13-2013 [place] ALVEOL&IZAB[facility]A [facility] ETOALVEOL INTERNAL PNEUMONOPAT MED HIES 75316 UNSPECIFIED 11-13-2013 [place] [facility] ARTHROPATHY INTERNAL MULTIPLE MED SITES 66903 EXTRINSIC 09-20-2013 [facility] ASTHMA, JAM WITH EXACERBATIO N 04949 LOSS OF 05-31-2013 [facility] WEIGHT JAM 4952 BIRD-FANCIE 03-01-2013 [place] RS LUNG JAM 6954 LUPUS 03-01-[place] [address] PECTUS 03-01-2013 [place] EXCAVATUM JAM 19730 ACUTE 02-08-2013 [place] [facility] IS DUE OTH INC INFECTIOUS ORGANISMS 16834 SHORTNESS 01-25-2013 [place] OF BREATH JAM 7862 COUGH 01-25-2013 [facility] INC 74956 UNSPECIFIED 12-19-2012 [facility] TEGAN RESPIRATORY ABNORMALITY 786.09 786.09 10-16-2012 [place] RESPIRATORY [facility] 15737 OTHER 10-16-2012 [facility] DYSPNEA AND TEGAN RESPIRATORY ABNORMALITI ES V12.61 V12.61 10-16-2012 [facility], Hospital PNEUMONIA (RECURRENT) V1261 PERSONAL 10-16-2012 [facility] HISTORY TEGAN PNEUMONIA RECURRENT V14.8 V14.8 10-16-2012 [facility] ALLERGY [facility] V148 PERSONAL 10-16-2012 [facility] HISTORY TEGAN ALLERGY OTH SPEC MEDICINAL AGTS V58.64 V58.64 10-16-2012 [facility] LONG-TERM([facility])USE Hospital OF NON-STEROID AL ANTI-INFLAM MATORIES V5864 LONG-TERM 10-16-2012 [facility] USE [facility] NON-STEROID AL ANTI-INFLAM MATORIES 94349 NUCLEAR 08-16-2012 MARCI SCLEROSIS SHIVAM 3669 UNSPECIFIED [...] FOR SUBQ /IM USE IIV3 - 141 LADI No LADI 7-20 WILFRID WILFRID VACC 13 [...] DOS Code Location Performer Comment DXA BONE 24083 [place] NOBLE DENSITY 7 MEDICAL STUDY 1/> IMAGING SITES ASS AXIAL SKEL IM ADM 48039 [facility] S[facility] PRQ ID 7 VALLEY SUBQ/IM INTERNAL NJXS 1 MED VACCINE PCV13 63153 [facility] VACCINE 7 [facility] FOR INTERNAL INTRAMUSC MED ULAR USE ANNUAL G0439 [facility] WELLNESS 7 VALLEY VST; INTERNAL PERSONALI MED ZED PPS SUBSQT VST COLLECTIO 96133 [facility] Ruiz VENOUS 7 [facility] BLOOD INC INC VENIPUNCT URE GENERAL 02-15-201 87380 [facility] PANEL INC INC LIPID 35920 RENEE DURAN PANEL 7 [facility] INC INC RADIOLOGI 48371 AMPARO MCKENZIE C EXAM 6 MEDICAL CHEST 2 IMAGING VIEWS ASS FRONTAL&L ATERAL IIV 51655 [facility] VACCINE 6 PHARMACY PHARMACY PRESERV #591 #591 FREE INCREASED AG CONTENT IM ADMINISTR G0008 [facility] ATION OF 6 PHARMACY PHARMACY INFLUENZA #591 #591 VIRUS VACCINE COLLECTIO 40836 [facility] DURAN N VENOUS 6 [facility] BLOOD INC INC VENIPUNCT URE IMMUNODIF 32221 [facility] DURAN FUSION 6 [facility] GEL INC INC DIFFUSION QUAL EA AG/ANTBDY ALLERGEN 61075 [facility] DURAN SPECIFIC 6 [facility] IGG INC INC EVELYN/SEMI EVELYN EA ALLERGEN CT THORAX 41722 R[facility] DURAN W/O 6 [facility] CONTRAST INC INC MATERIAL ANTIBODY 76697 RENEE DURAN ASPERGILL 6 [facility] US INC INC RADIOLOGI 03801 RENEE DURAN C EXAM 6 [facility] CHEST 2 INC INC VIEWS FRONTAL&L ATERAL PRESSURIZ 13227 RENEE DURAN ED/NONPRE 6 [facility] SSURIZED INC INC INHALATIO N TREATMENT SPMTRY 36968 EFE KELSEY W/VC 6 MEDICAL JAM EXPIRATOR SERV Y LESLYE FOUNDATIO W/WO MXML N VOL VNTJ BRNCDILAT 99934 [facility] DURAN RSPSE 6 MEM HOSP [facility] SPMTRY INC INC PRE&[place] [address] R[facility] DURAN DIFFUSING 6 [facility] CAPACITY INC INC NONINVASI 60201 RENEE DURAN VE 6 [facility] EAR/PULSE INC INC OXIMETRY MULTIPLE DETER PULMONARY 32622 [place] LOW STRESS 6 MEDICAL JAM TESTING SERV SIMPLE FOUNDATIO N GAS 54393 RENEE DURAN DILUT/WAS 6 [facility] HOUT LUNG INC INC VOL W/WO DISTRIB VENT&V IAADIADOO 49598 [place] BESSON 5 [facility] INFLUENZA INTERNAL MED THERAPEUT 93812 [place] MARYLIN IC 5 [facility] PROPHYLAC INTERNAL TIC/DX MED INJECTION SUBQ/IM INJECTION J0696 [facility] 5 [facility] CEFTRIAXO INTERNAL INTERNAL NE SODIUM MED MED PER 250 MG BLOOD 27161 [facility] DURAN COUNT 5 [facility] COMPLETE INC INC AUTO&AUTO DIFRNTL WBC ANTINUCLE 99746 R[facility] DURAN AR 5 [facility] ANTIBODIE INC INC S HERBER BASIC 67143 REN[facility] DURAN METABOLIC 5 [facility] PANEL INC INC CALCIUM TOTAL ANTIBODY 71885 R[facility] DUR[facility] IDENTIFIC 5 [facility] ATION INC INC LEUKOCYTE ANTIBODIE S ANTIHUMAN 10311 R[facility] DURAN GLOBULIN 5 [facility] DIRECT INC INC EACH ANTISERUM COLLECTIO 16370 RENEE DURAN N VENOUS 5 [facility] BLOOD INC INC VENIPUNCT URE COMPREHEN 97005 RENEE DURAN SIVE 4 [facility] METABOLIC INC INC PANEL BLOOD 86955 RENEE DURAN COUNT 4 [facility] COMPLETE INC INC AUTO&AUTO DIFRNTL [facility] 59311 [place] [facility] DISCHARGE 4 [facility] INTERNAL MANAGEMEN MED T 30 MIN/< SBSQ [address] [place] [address] CARE/DAY INTERNAL 35 MED MINUTES SBSQ 72627 [place] BANNER 4 [facility] CARE/DAY INTERNAL 35 MED MINUTES IAADIADOO 22333 [facility] 4 [facility] INFLUENZA INTERNAL MED INITIAL [address] [place] [address] CARE/DAY INTERNAL 50 MED MINUTES RADIOLOGI 84319 [facility] D[facility] Pierre EXAM 4 MEDICAL JUAN RAMON CHEST 2 IMAGING VIEWS ASS FRONTAL&L ATERAL ECG 69981 [facility] COULTER ROUTINE 4 [facility] W/LEAST P 12 LDS I&R ONLY INJECTION J0696 [place] SERAFINSON 4 [facility] CEFTRIAXO INTERNAL NE SODIUM MED PER 250 MG INJECTION J3301 [place] SERAFINSON 4 [facility] TRIAMCINO INTERNAL LONE MED ACETONIDE NOS 10 MG THERAPEUT 38250 [place] MARYLIN IC 4 [facility] PROPHYLAC INTERNAL TIC/DX MED INJECTION SUBQ/IM COMPREHEN 08900 [facility] DURAN SIVE 4 [facility] METABOLIC INC INC PANEL CT THORAX 47541 [facility] D[facility] W/O 4 [facility] CONTRAST INC INC MATERIAL NONINVASI 61854 REN[facility] DURAN VE 4 [facility] EAR/PULSE INC INC OXIMETRY SINGLE DETER BRNCDILAT 96352 R[facility] DURAN RSPSE 4 [facility] SPMTRY INC INC PRE&POST- BRNCDILAT ADMN GAS 18433 R[facility] DURAN DILUT/WAS 4 [facility] HOUT LUNG INC INC VOL W/[place] DISTRIB VENT&[place] [address] REN[facility] DURAN DIFFUSING 4 [facility] CAPACITY INC INC CT THORAX 97301 DEREJE DEREJE W/O 3 JUAN RAMON JUAN RAMON CONTRAST MATERIAL ANTINUCLE 88564 RENEE DURAN AR 3 [facility] ANTIBODIE INC INC S HERBER ANTIBODY 81780 RENEE DURAN ASPERGILL 3 [facility] US INC INC BLOOD 83783 RENEE DURAN COUNT 3 [facility] COMPLETE INC INC AUTO&[place] [address] R[facility] DURAN GAMMAGLOB 3 [facility] ULIN IGA INC INC IGD IGG IGM EACH SEDIMENTA 79155 RENEE DURAN TION RATE 3 [facility] RBC INC INC NON-AUTOM ATED IMMUNODIF 07883 RENEE DURAN FUSION 3 [facility] GEL INC INC DIFFUSION QUAL EA AG/ANTBDY ALLERGEN 83493 RENEE DURAN SPECIFIC 3 [facility] IGG INC INC EVELYN/SEMI EVELYN EA ALLERGEN COMPREHEN 11989 RENEE [facility]URAN SIVE 3 [facility] [place] [address] RENEE DURAN GAMMAGLOB 3 [facility] ULIN IGE INC INC GAS 51896 RENEE DURAN DILUT/WAS 3 [facility] HOUT LUNG INC INC VOL W/WO DISTRIB VENT&V BRNCDILAT 31927 RENEE DURAN RSPSE 3 [facility] SPMTRY INC INC PRE&POST- BRNCDILAT ADMN ECHO 64384 RENEE DURAN TTHRC R-T 3 [facility] 2D INC INC W/WOM-MOD E COMPL SPEC&COLR D BLOOD 53904 RENEE DURAN COUNT 3 [facility] COMPLETE INC INC AUTO&AUTO DIFRNTL WBC ECG 36547 MELISA HARMON ROUTINE 3 EMERGENCY ECG SERVICES W/LEAST 12 LDS I&R ONLY RADIOLOGI 99389 RENEE DURAN C EXAM 3 [facility] CHEST 2 INC INC VIEWS FRONTAL&L ATERAL PRESSURIZ 35557 RENEE DURAN ED/NONPRE 3 [facility] SSURIZED INC INC INHALATIO N TREATMENT FIBRIN 69638 RENEE DURAN DGRADJ 3 [facility] PRODUCTS INC INC D-DIMER QUAL/SEMI EVELYN ECG 84770 RENEE DURAN ROUTINE 3 [facility] ECG INC INC W/LEAST 12 LDS TRCG ONLY W/O I&R POSTERIOR V2632 R[facility] DURAN CHAMBER 3 [facility] INTRAOCUL INC INC AR LENS CATARACT 95510 [facility] REMOVAL 3 SHIVAM SHIVAM INSERTION OF LENS OPH BMTRY 84711 [facility] US 3 SHIVAM SHIVAM ECHOGRAPY A-SCAN IO LENS PWR ANTIONETTE OPHTH 42345 [facility] MEDICAL 3 SHIVAM SHIVAM XM&EVAL COMPRE NEW PT 1/> VST IODINE A9516 [facility] FRYEON I-123 3 [facility] SODIUM INC INC IODIDE DX PER 100 UCI TO 999 THYROID 05090 R[facility]EE DURAN UPTAKE 3 [facility] W/BLOOD INC INC FLOW SNGLE/MUL T EVELYN MIC US SOFT 59394 [facility] DURAN TISSUE 3 [facility] HEAD & INC INC NECK REAL TIME IMGE DOCM RADIOLOGI 32148 DEREJE JESUSUTCHER C EXAM 3 JUAN RAMON JUAN RAMON CHEST 2 VIEWS FRONTAL&L ATERAL GENERAL 64213 [facility] DURAN [facility]ALTH 3 [facility] PANEL INC INC IIV3 05020 [facility] DURAN VACCINE 3 [facility] SPLIT CENTER CENTER VIRUS 0.5 ML DOSAGE IM USE PPSV23 13936 RENEE DURAN VACCINE 2 3 [facility] YRS OR CENTER CENTER OLDER FOR SUBQ/IM USE RADIOLOGI 93488 RENEE DURAN C EXAM 3 [facility] CHEST 2 INC INC VIEWS FRONTAL&[place] [address] R[facility] DURAN FREE 3 [facility] THYROXINE INC INC HOSPITAL 84136 [facility] 3 [facility] DAY MANAGEMEN T 30 MIN/< SBSQ 39580 [facility] 3 [facility] CARE/DAY 25 MINUTES RADIOLOGI 64772 DEREJE DEREJE C 3 JUAN RAMON JUAN RAMON EXAMINATI ON CHEST [place] FRONTAL INITIAL 83689 [facility] 3 [facility] CARE/DAY 50 MINUTES Encounters Encounter Start End Date Code Location Performer Type Date OFFICE 35844 EFE TRAMMELL 7 7 MEDICAL T VISIT SERV 25 FOUNDATIO MINUTES N OFFICE 99262 [facility] [facility] OUTPATIEN 7 7 [facility] T VISIT INTERNAL 15 MED MINUTES HOSPITAL RENEE - 7 7 [facility] OUTPATIEN INC T OFFICE 48071 [facility] BESSON OUTPATIEN 7 7 [facility] T VISIT INTERNAL 15 MED MINUTES OFFICE 63045 [facility] B[facility]ON OUTPATIEN 7 7 [facility] T VISIT INTERNAL 25 MED MINUTES HOSPITAL RENEE - 6 6 [facility] INPATIENT INC OFFICE 16828 [place] OUTPATIEN 6 6 MEDICAL JAM T VISIT SERV 15 FOUNDATIO MINUTES N HOSPITAL RENEE - OTHER 6 6 [facility] INC OFFICE 30008 [place] OUTPATIEN 6 6 MEDICAL JAM T VISIT SERV 15 FOUNDATIO MINUTES N HOSPITAL RENEE - 6 6 [facility] OUTPATIEN INC [facility] - 6 6 [facility] OUTPATIEN INC T OFFICE 95527 [facility] CHELE TOD OUTPATIEN 6 6 PHYSICIAN T VISIT S GROUP 10 MINUTES OFFICE 53522 [facility] CHELE TOD OUTPATIEN 6 6 PHYSICIAN T VISIT S GROUP 10 MINUTES OFFICE 06104 [facility] [facility] OUTPATIEN 5 5 [facility] MODE[facility] T VISIT INTERNAL 15 MED MINUTES OFFICE 08783 [place] OUTPATIEN 5 5 MEDICAL JAM T VISIT SERV 25 FOUNDATIO MINUTES N OFFICE 48588 [facility] OUTPATIEN 5 5 [facility] MO[facility] T VISIT INTERNAL 15 MED MINUTES HOSPITAL RENEE - 5 5 [facility] OUTPATIEN INC T OFFICE 69560 [place] OUTPATIEN 5 5 MEDICAL JAM T VISIT SERV 25 FOUNDATIO MINUTES N OFFICE 03654 [facility] S[facility] OUTPATIEN 4 4 [facility] ZACKARY T VISIT INTERNAL 15 MED MINUTES HOSPITAL RENEE - 4 4 [facility] OUTPATIEN INC HOSPITAL RENEE - 4 4 [facility] INPATIENT INC OFFICE 62442 [place] BESSON OUTPATIEN 4 4 [facility] MO[facility] T VISIT INTERNAL 15 MED MINUTES OFFICE 67755 [facility] KELSEY OUTPATIEN 4 4 JAM JAM T VISIT 15 MINUTES HOSPITAL RENEE - 4 4 [facility] OUTPATIEN INC T OFFICE 59294 [facility] SERAFINSON OUTPATIEN 4 4 [facility] T VISIT INTERNAL 15 MED MINUTES HOSPITAL RENEE - 4 4 [facility] OUTPATIEN INC T OFFICE 40722 [facility] KELSEY OUTPATIEN 4 4 YAZMIN ARCE T VISIT 25 MINUTES OFFICE 88160 [facility] KELSEY OUTPATIEN 4 4 YAZMIN JAM T VISIT 25 MINUTES HOSPITAL RENEE - 4 4 [facility] OUTPATIEN INC T OFFICE 35482 [facility] KELSEY OUTPATIEN 3 3 YAZMIN JAM T VISIT 25 MINUTES HOSPITAL RENEE - 3 3 [facility] OUTPATIEN INC HOSPITAL RENEE - 3 3 [facility] OUTPATIEN INC T OFFICE 37000 [facility] KELSEY CONSULTAT 3 3 JAM JAM ION NEW/ESTAB PATIENT 80 MIN OFFICE 17873 [facility] MCKEMIE OUTPATIEN 3 3 JR TEGAN JAVED T VISIT 15 MINUTES OFFICE 11761 [facility] MCKEMIE OUTPATIEN 3 3 JR TEGAN JAVED T VISIT 15 MINUTES HOSPITAL RENEE - 3 3 [facility] OUTPATIEN INC T OFFICE 49239 [facility] MCKEMIE OUTPATIEN 3 3 JR TEGAN JAVED T VISIT 15 MINUTES Emergency HOLLAND Green MD (ER) 3 11:35 3 14:17 [facility] EMERGENCY 03149 RENEE 3 3 [facility] DEPARTMEN INC T VISIT HIGH/URGE NT [facility] RENEE - 3 3 [facility] OUTPATIEN INC T EMERGENCY 72679 MELISA HARMON DEPT 3 3 EMERGENCY VISIT SERVICES HIGH SEVERITY& THREAT [facility] RENEE - 3 3 [facility] OUTPATIEN [facility] RENEE - 3 3 [facility] RENEE - 3 3 [facility] OUTPATIEN [facility] OFFICE 47671 [facility] 3 3 [facility] VISIT 15 MINUTES HOSPITAL RENEE - 3 3 [facility] OUTPATIEN [facility] T EMERGENCY 04706 ALONDRA CANTU DEPT 3 3 III TEGAN III TEGAN VISIT HIGH SEVERITY& THREAT FUNJ
--- OUTSIDE RECORDS SUMMARY | 2016-11-09 10:45 | External Medical Summary Rpt ---
Author Author , RUFINO JOY Address Unknown Phone [email or web address] Care Team Providers Care Job Spotter Name Role Phone JONAH, JONAH Unavailable Unavailable BESSON, BESSON Unavailable Unavailable BESSON MODESTO, BESSON Unavailable Unavailable MODESTO MARCI SHIVAM, Unavailable Unavailable MARCI SHIVAM MARCI SHIVAM, Unavailable Unavailable MARCI SHIVAM NOBLE, NOBLE Unavailable Unavailable NOBLE ALL, NOBLE ALL Unavailable Unavailable DEREJE JUAN RAMON, Unavailable Unavailable DEREJE JUAN RAMON DEREJE JUAN RAMON, Unavailable Unavailable DEREJE JUAN RAMON SURESH, SURESH Unavailable Unavailable SURESH ZACKARY, Unavailable Unavailable SURESH ZACKARY [facility] Unavailable Unavailable CENTER, [facility] Unavailable Unavailable CENTER, [facility] Unavailable Unavailable INC, [facility] Unavailable Unavailable HOSPITAL P, [facility], Unavailable Unavailable [facility] Unavailable Unavailable IMAGING [facility], [facility] Unavailable [facility], [facility] Unavailable Unavailable INTERNAL MED, [facility] KELSEY, KELSEY Unavailable Unavailable KELSEY JAM, Unavailable Unavailable KELSEY JAM KELSEY JAM, Unavailable Unavailable KELSEY JAM BRITTNEY JAVED, Unavailable Unavailable MCKEMIE JR JAVED MCKEMIE TEGAN, Unavailable Unavailable MCKEMIE JR JAVED CHELE TOD, CHELE TOD Unavailable Unavailable [facility] Unavailable Unavailable #591, [facility] WEJITENDRA JAVED, Unavailable Unavailable WEHRMAN III HASMUKH JACOBS Unavailable Unavailable Purpose Continuity of Care Document - 04-04-2012 through 2016 Problems Code Diagnosis DOS Provider Status J189 PNEUMONIA 09-08-2016 [facility] MEDICAL UNSPECIFIED SERV ORGANISM FOUNDATION J219 ACUTE 09-08-2016 IN MEDICAL BRONCHIOLIT SERV IS FOUNDATION UNSPECIFIED J672 BIRD 09-08-2016 IN MEDICAL FANCIERS SERV LUNG FOUNDATION J8410 PULMONARY 09-08-2016 IN MEDICAL FIBROSIS SERV UNSPECIFIED FOUNDATION M32460 OTH SPEC 09-08-2016 [place] D/O BONE MEDICAL DENSITY IMAGING ASS STRUCTURE RT THIGH R0609 OTHER FORMS 09-08-2016 IN MEDICAL OF DYSPNEA SERV FOUNDATION Z780 ASYMPTOMATI 09-08-2016 [place] C MEDICAL MENOPAUSAL IMAGING ASS STATE I7300 [...] [facility] I10 ESSENTIAL 05-13-2016 [facility] HYPERTENSIO INC N J984 OTHER 04-01-2016 [place] DISORDERS [place] OF LUNG INTERNAL MED R05 COUGH 03-19-2016 [place] [facility] J679 HYPERSENSIT 09-25-2015 [facility] PNEUMONIT INC D/T UNS ORGANIC DUST R918 OTHER 09-25-2015 [place] NONSPECIFIC MEDICAL ABNORMAL IMAGING ASS FINDING OF LUNG FIELD R0989 OTH SPEC SX 09-17-2015 [place] & SIGNS MEDICAL INVLV THE IMAGING ASS CIRC & RESP SYS R509 FEVER 09-17-2015 [place] UNSPECIFIED MEDICAL IMAGING ASS U00731 UNSPECIFIED 09-16-2015 [place] MEDICAL ASTHMA SERV UNCOMPLICAT FOUNDATION ED A048 OTHER 05-20-2015 [facility] SPECIFIED PHYSICIANS BACTERIAL GROUP INTESTINAL INFECTIONS 76979 EXTRINSIC 06-13-2014 IN MEDICAL ASTHMA, SERV UNSPECIFIED FOUNDATION 4959 UNSPECIFIED 06-13-2014 IN MEDICAL ALLERGIC SERV ALVEOLITIS FOUNDATION AND PNEUMONITIS 515 POSTINFLAMM 06-13-2014 IN MEDICAL ATORY SERV PULMONARY FOUNDATION FIBROSIS 7109 UNSPECIFIED 06-13-2014 IN MEDICAL DIFFUSE SERV CONNECTIVE FOUNDATION TISSUE DISEASE 2768 HYPOPOTASSE 05-23-2014 [facility] ISHA [facility] INTERNAL MED 2859 UNSPECIFIED 05-23-2014 [facility] ANEMIA [facility] INTERNAL MED 486 PNEUMONIA, 05-23-2014 [facility] ORGANISM [place] UNSPECIFIED INTERNAL MED 2830 AUTOIMMUNE 04-30-2014 [facility]TIC [facility] ANEMIAS INC 4830 PNEUMONIA 04-11-2014 IN MEDICAL DUE TO SERV MYCOPLASMA FOUNDATION PNEUMONIAE 52858 DEHYDRATION 03-16-2014 [facility] 496 CHRONIC 03-16-2014 [facility] P NEC 69994 OTHER 03-16-2014 [place] DISEASES OF MEDICAL LUNG NOT IMAGING ASS ELSEWHERE CLASSIFIED 14785 FEVER 03-16-2014 [place] UNSPECIFIED VALLEY INTERNAL MED 00969 OTHER 03-16-2014 [place] NONSPECIFIC MEDICAL ABNORMAL IMAGING ASS FINDING OF LUNG FIELD V1254 PERSONAL HX 03-16-2014 [facility] TIA & CI [facility] W/O INC RESIDUAL DEFICITS V141 PERSONAL 03-16-2014 [facility] HISTORY [facility] ALLERGY INC OTHER ANTIBIOTIC AGENT 485 BRONCHOPNEU 02-05-2014 [facility] [place] [facility] ORGANISM INTERNAL UNSPECIFIED MED 4918 OTHER 11-29-2013 K[facility] CHRONIC JAM BRONCHITIS 5168 OTH SPEC 11-13-2013 [facility] ALVEOL&IZABELA VALLEY ETOALVEOL INTERNAL PNEUMONOPAT MED HIES 60705 UNSPECIFIED 11-13-2013 [place] [facility] ARTHROPATHY INTERNAL MULTIPLE MED SITES 86665 EXTRINSIC 09-20-2013 [facility] ASTHMA, JAM WITH EXACERBATIO N 70761 LOSS OF 05-31-2013 [facility] WEIGHT JAM 4952 BIRD-FANCIE 03-01-2013 [facility] RS LUNG JAM 6954 LUPUS 03-01-[place] [address] PECTUS 03-01-2013 [facility] EXCAVATUM JAM 45775 ACUTE 02-08-2013 [facility]IT [facility] IS DUE OTH INC INFECTIOUS ORGANISMS 67178 SHORTNESS 01-25-2013 [place] OF BREATH JAM 7862 COUGH 01-25-2013 [facility] 64403 UNSPECIFIED 12-19-2012 [facility] TEGAN RESPIRATORY ABNORMALITY 38412 OTHER 10-16-2012 [facility] WEST DYSPNEA AND TEGAN RESPIRATORY ABNORMALITI ES V1261 PERSONAL 10-16-2012 [facility] WEST HISTORY TEGAN PNEUMONIA RECURRENT V148 PERSONAL 10-16-2012 [facility] WE[facility] HISTORY TEGAN ALLERGY OTH SPEC MEDICINAL AGTS V5864 LONG-TERM 10-16-2012 [facility] WEST USE TEGAN NON-STEROID AL ANTI-INFLAM MATORIES 64896 NUCLEAR 08-16-2012 [facility] SCLEROSIS SHIVAM 3669 UNSPECIFIED 08-16-2012 [facility] CATARACT [facility] INC 3688 OTHER 07-19-2012 [facility] SPECIFIED SHIVAM VISUAL DISTURBANCE S 2410 NONTOXIC 05-02-2012 [facility] UNINODULAR [facility] GOITER INC 2409 GOITER, 04-18-2012 DEREJE UNSPECIFIED JUAN RAMON 481 PNEUMOCOCCA 04-18-2012 [facility] Bower PNEUMONIA [facility] INC 5183 PULMONARY 04-14-2012 DEREJE EOSINOPHILI JUAN RAMON A V069 NEED PROPH 04-14-2012 [facility] [place] VACC[facility]ATION [facility] W/UNSPEC CENTER COMB VACCINE Immunization Name Date Rout CVX Reac Dose Comm Prov Is Faci e tion ent ider Refu lity Give sed n PCV1 05-0 133 CURRY No LICK 3 8-20 ENCE ING VACC 17 VALL INE EY FOR INTE INTR RNAL AMUS MED CULA R USE IIV - 135 WAL- No WAL- VACC 3-20 MART [...] S 0.5 ML DOSA GE IM USE Procedures Procedure DOS Code Location Performer Comment DXA BONE 10275 [place] NOBLE DENSITY 7 MEDICAL STUDY 1/> IMAGING SITES ASS AXIAL SKEL IM ADM 08947 [facility] SURESH PRQ ID 7 VALLEY SUBQ/IM INTERNAL NJXS 1 MED VACCINE PCV13 70713 [facility] S[facility] VACCINE 7 VALLEY FOR INTERNAL INTRAMUSC MED ULAR USE ANNUAL G0439 [facility] S[facility] WELLNESS 7 VALLEY VST; INTERNAL PERSONALI MED ZED PPS SUBSQT VST GENERAL 77772 [facility] PANEL INC INC LIPID 87278 [facility] FRYEON PANEL 7 [facility] INC INC COLLECTIO 39262 [facility] DURAN N VENOUS 7 [facility] BLOOD INC INC VENIPUNCT URE RADIOLOGI 08783 [facility] C EXAM 6 MEDICAL CHEST 2 IMAGING VIEWS ASS FRONTAL&L ATERAL IIV 76658 [facility] VACCINE 6 PHARMACY PHARMACY PRESERV #591 #591 FREE INCREASED AG CONTENT IM ADMINISTR G0008 [facility] ATION OF PHARMACY PHARMACY INFLUENZA #591 #591 VIRUS VACCINE IMMUNODIF 82856 [facility] DURAN FUSION 6 [facility] GEL INC INC DIFFUSION QUAL EA AG/ANTBDY COLLECTIO 92026 [facility] DURAN N VENOUS 6 [facility] BLOOD INC INC VENIPUNCT URE ALLERGEN 67923 [facility] DURAN SPECIFIC 6 [facility] IGG INC INC EVELYN/SEMI EVELYN EA ALLERGEN ANTIBODY 95986 [facility] DURAN ASPERGILL 6 [facility] US INC INC CT THORAX 21506 [place] NOBLE ALL W/O 6 MEDICAL CONTRAST IMAGING MATERIAL ASS RADIOLOGI 07961 [facility] DURAN C EXAM 6 [facility] CHEST 2 INC INC VIEWS FRONTAL&L ATERAL SPMTRY 09035 EFE LOW W/VC 6 MEDICAL JAM EXPIRATOR SERV Y LESLYE FOUNDATIO W/WO MXML N VOL VNTJ BRNCDILAT 41669 [facility] D[facility]AN RSPSE 6 [facility] SPMTRY INC INC PRE&POST- BRNCDILAT ADMN PRESSURIZ 04919 [facility] DURAN ED/NONPRE 6 [facility] SSURIZED INC INC INHALATIO N TREATMENT PULMONARY 93934 EFE KELSEY STRESS 6 MEDICAL JAM TESTING SERV SIMPLE FOUNDATIO N GAS 02984 EFE KELSEY DILUT/WAS 6 MEDICAL JAM HOUT LUNG SERV VOL W/WO FOUNDAT[place] DISTRIB N VENT&[place] [address] [place] DIFFUSING 6 MEDICAL JAM CAPACITY SERV FOUNDATIO N NONINVASI 46517 RENEEMATTHEW DURAN VE 6 [facility] EAR/PULSE INC INC OXIMETRY MULTIPLE DETER IAADIADOO 51410 [facility] BESSON 5 VALLEY MODESTO INFLUENZA INTERNAL MED INJECTION J0696 [facility] 5 [facility] CEFTRIAXO INTERNAL INTERNAL NE SODIUM MED MED PER 250 MG THERAPEUT 60481 [place] BESSON IC 5 VALLEY MODESTO PROPHYLAC INTERNAL TIC/DX MED INJECTION SUBQ/IM COLLECTIO 34271 [facility] DURAN N VENOUS 5 [facility] BLOOD INC INC VENIPUNCT URE ANTIBODY 66011 [facility] DURAN IDENTIFIC 5 [facility] ATION INC INC LEUKOCYTE ANTIBODIE S ANTIHUMAN 49099 [facility] FRYEON GLOBULIN 5 [facility] DIRECT INC INC EACH ANTISERUM BLOOD 14579 [facility] RENEE COUNT 5 [facility] COMPLETE INC INC AUTO&AUTO DIFRNTL WBC ANTINUCLE 20186 [facility] DURAN AR 5 [facility] ANTIBODIE INC INC S HERBER BASIC 24615 [facility] RENEE METABOLIC 5 [facility] PANEL INC INC CALCIUM TOTAL BLOOD 64594 [facility] RENEE COUNT 4 [facility] COMPLETE INC INC AUTO&AUTO DIFRNTL WBC COMPREHEN 75445 [facility] RENEE SIVE 4 [facility] METABOLIC INC INC PANEL HOSPITAL 13720 [place] [facility] DISCHARGE 4 [facility] INTERNAL MANAGEMEN MED T 30 MIN/< SBSQ [address] CARE/DAY INTERNAL 35 MED MINUTES SBSQ [address] [place] [address] CARE/DAY INTERNAL 35 MED MINUTES IAADIADOO 15811 [facility] 4 [facility] INFLUENZA INTERNAL MED INITIAL [address] CARE/DAY INTERNAL 50 MED MINUTES RADIOLOGI 65772 [place] DEREJE C EXAM 4 MEDICAL JUAN RAMON CHEST 2 IMAGING VIEWS ASS FRONTAL&L ATERAL ECG 89002 [facility] COULTER ROUTINE [address] [facility] W/LEAST P 12 LDS I&R ONLY INJECTION J0696 [place] [facility] CEFTRIAXO INTERNAL NE SODIUM MED PER 250 MG THERAPEUT 50660 [place] [facility] IC 4 [facility] PROPHYLAC INTERNAL TIC/DX MED INJECTION SUBQ/IM INJECTION J3301 [place] SERAFINSON 4 [facility] TRIAMCINO INTERNAL LONE MED ACETONIDE NOS 10 MG COMPREHEN 28870 [facility] DURAN SIVE 4 [facility] METABOLIC INC INC PANEL CT THORAX 62087 AMPARO JESUSUTCHER W/O 4 MEDICAL JUAN RAMON CONTRAST IMAGING MATERIAL ASS NONINVASI 13056 [facility] DURAN VE 4 [facility] EAR/PULSE INC INC OXIMETRY SINGLE DETER BRNCDILAT 89225 [facility] DURAN RSPSE 4 [facility] SPMTRY INC INC PRE&[place] [address] [facility] DURAN DIFFUSING 4 [facility] CAPACITY INC INC GAS 08173 [facility] DURAN DILUT/WAS 4 [facility] HOUT LUNG INC INC VOL W/WO DISTRIB VENT&V CT THORAX 54897 [facility] DURAN W/O 3 [facility] [address] R[facility] DUR[facility] GAMMAGLOB 3 [facility] ULIN IGA INC INC IGD IGG IGM EACH ANTIBODY 35445 [facility] D[facility]AN ASPERGILL 3 [facility] US INC INC BLOOD 10054 [facility] DURAN COUNT 3 [facility]OS[facility] COMPLETE INC INC AUTO&AUTO DIFRNTL WBC ANTINUCLE 44917 [facility] DURAN AR 3 [facility] ANTIBODIE INC INC S HERBER SEDIMENTA 79130 [facility] DURAN TION RATE 3 [facility] RBC INC INC NON-AUTOM ATED IMMUNODIF 95641 [facility] DURAN FUSION 3 [facility] GEL INC INC DIFFUSION QUAL EA AG/[place] [address] [facility] DURAN GAMMAGLOB 3 [facility] ULIN IGE INC INC ALLERGEN 31609 [facility] D[facility] SPECIFIC 3 [facility] IGG INC INC EVELYN/SEMI EVELYN EA ALLERGEN COMPREHEN 27401 [facility] DURAN SIVE 3 [facility] METABOLIC INC INC PANEL GAS 09097 [facility] D[facility] DILUT/WAS 3 [facility] HOUT LUNG INC INC VOL W/WO DISTRIB VENT&V BRNCDILAT 05236 [facility] D[facility] RSPSE 3 [facility] SPMTRY INC INC PRE&POST- BRNCDILAT ADMN ECHO 54492 [facility] D[facility]AN TTHRC R-T 3 [facility] 2D INC INC W/WOM-MOD E COMPL SPEC&COLR D ECG 73286 MELISA HARMON ROUTINE 3 EMERGENCY ECG SERVICES W/LEAST 12 LDS I&R ONLY RADIOLOGI 95377 [facility] DURAN C EXAM 3 [facility] CHEST 2 INC INC VIEWS FRONTAL&L ATERAL BLOOD 73020 [facility] DURAN COUNT 3 [facility] COMPLETE INC INC AUTO&AUTO DIFRNTL WBC PRESSURIZ 57445 [facility] DUR[facility] ED/NONPRE 3 [facility] SSURIZED INC INC INHALATIO N TREATMENT ECG 27668 [facility] DURAN ROUTINE 3 [facility] ECG INC INC W/LEAST 12 LDS TRCG ONLY W/O I&R FIBRIN 93476 [facility] D[facility] DGRADJ 3 [facility] PRODUCTS INC INC D-DIMER QUAL/SEMI EVELYN POSTERIOR V2632 [facility] D[facility] CHAMBER 3 [facility] INTRAOCUL INC INC AR LENS CATARACT 32272 [facility] DURAN REMOVAL 3 [facility] INSERTION INC INC OF LENS OPH BMTRY 52389 [facility] US 3 SHIVAM SHIVAM ECHOGRAPY A-SCAN IO LENS PWR ANTIONETTE OPHTH 29613 [facility] MEDICAL 3 SHIVAM SHIVAM XM&EVAL COMPRE NEW PT 1/> VST THYROID 40961 [facility] D[facility] UPTAKE 3 [facility] W/BLOOD INC INC FLOW SNGLE/MUL T EVELYN MIC IODINE A9516 [facility] DURAN I-123 3 [facility] SODIUM INC INC IODIDE DX PER 100 UCI TO 999 RADIOLOGI 28287 RENEE DURAN C EXAM 3 [facility] CHEST 2 INC INC VIEWS FRONTAL&L ATERAL US SOFT 26689 R[facility]EE DURAN TISSUE 3 [facility] HEAD & INC INC NECK REAL TIME IMGE DOCM RADIOLOGI 73454 RENEE DURAN C EXAM 3 [facility] CHEST 2 INC INC VIEWS FRONTAL&L ATERAL IIV3 66243 R[facility] DURAN VACCINE 3 [facility] SPLIT CENTER CENTER VIRUS 0.5 ML DOSAGE IM USE PPSV23 44825 [facility] DURAN VACCINE 2 3 [facility] YRS OR CENTER CENTER OLDER FOR SUBQ/IM USE GENERAL 88999 RENEE DURAN [facility] 3 [facility] [place] [address] RENEE DURAN FREE 3 [facility] THYROXINE INC INC HOSPITAL 07266 [facility] 3 [place] MODESTO DAY MANAGEMEN T 30 MIN/< SBSQ 20244 [facility] 3 MO[place] MODESTO CARE/DAY 25 MINUTES RADIOLOGI 02997 DEREJE DEREJE C 3 JUAN RAMON JUAN RAMON EXAMINATI ON CHEST SINGLE VIEW FRONTAL INITIAL 61909 [facility] 3 JR TEGAN JR TEGAN CARE/DAY 50 MINUTES Encounters Encounter Start End Date Code Location Performer Type Date OFFICE 26411 [place] OUTPATIEN 7 7 MEDICAL T VISIT SERV 25 FOUNDATIO MINUTES N OFFICE 61195 [place] SURESH OUTPATIEN 7 7 VALLEY T VISIT INTERNAL 15 MED [facility] RENEE - 7 7 [facility] OUTPATIEN INC T OFFICE 41705 [place] BESSON OUTPATIEN 7 7 VALLEY T VISIT INTERNAL 15 MED MINUTES OFFICE 92638 [place] BESSON OUTPATIEN 7 7 VALLEY T VISIT INTERNAL 25 MED [facility] RENEE - 6 6 [facility] INPATIENT INC OFFICE 79665 [place] OUTPATIEN 6 6 MEDICAL JAM T VISIT SERV 15 FOUNDATIO MINUTES [facility] RENEE - OTHER 6 6 [facility] INC OFFICE 17000 [place] OUTPATIEN 6 6 MEDICAL JAM T VISIT SERV 15 FOUNDATIO MINUTES [facility] RENEE - 6 6 [facility] OUTPATIEN INC T HOSPITAL RENEE - 6 6 [facility] OUTPATIEN INC T OFFICE 85301 [facility] CHELE TOD OUTPATIEN 6 6 PHYSICIAN T VISIT S GROUP 10 MINUTES OFFICE 45657 [facility] CHELE TOD OUTPATIEN 6 6 PHYSICIAN T VISIT S GROUP 10 MINUTES OFFICE 89316 [place] BESSON OUTPATIEN 5 5 [facility] MODESTO T VISIT INTERNAL 15 MED MINUTES OFFICE 78893 [place] OUTPATIEN 5 5 MEDICAL JAM T VISIT SERV 25 FOUNDATIO MINUTES N OFFICE 53717 [place] BESSON OUTPATIEN 5 5 [facility] MODESTO T VISIT INTERNAL 15 MED MINUTES [facility]OSPITAL RENEE - 5 5 [facility] OUTPATIEN INC T OFFICE 95216 [place] OUTPATIEN 5 5 MEDICAL JAM T VISIT SERV 25 FOUNDATIO MINUTES HOSPITAL RENEE - 4 4 [facility] OUTPATIEN INC T OFFICE 31904 [place] SURESH OUTPATIEN 4 4 [facility] ZACKARY T VISIT INTERNAL 15 MED MINUTES HOSPITAL RENEE - 4 4 [facility] INPATIENT INC OFFICE 41226 [place] BESSON OUTPATIEN 4 4 [facility] MODESTO T VISIT INTERNAL 15 MED MINUTES OFFICE 86837 [facility] KELSEY OUTPATIEN 4 4 JAM JAM T VISIT 15 MINUTES OFFICE 74927 [place] BESSON OUTPATIEN 4 4 [facility] MODESTO T VISIT INTERNAL 15 MED MINUTES HOSPITAL RENEE - 4 4 [facility] OUTPATIEN INC [facility]OSPITAL RENEE - 4 4 [facility] OUTPATIEN INC T OFFICE 82772 [facility] KELSEY OUTPATIEN 4 4 JAM JAM T VISIT 25 MINUTES OFFICE 12138 [facility] KELSEY OUTPATIEN 4 4 YAZMIN ARCE T VISIT 25 MINUTES HOSPITAL RENEE - 4 4 [facility] OUTPATIEN INC T OFFICE 35297 [facility] KELSEY OUTPATIEN 3 3 YAZMIN ARCE T VISIT 25 MINUTES HOSPITAL RENEE - 3 3 [facility] OUTPATIEN INC T OFFICE 65037 [facility] KELSEY CONSULTAT 3 3 YAZMIN ARCE ION NEW/ESTAB PATIENT 80 MIN HOSPITAL RENEE - 3 3 [facility] OUTPATIEN INC T OFFICE 97165 MCKEMIE MCKEMIE OUTPATIEN 3 3 JR TEGAN JAVED T VISIT 15 MINUTES OFFICE 31874 [facility] MCKEMIE OUTPATIEN 3 3 JR TEGAN JAVED T VISIT 15 MINUTES HOSPITAL RENEE - 3 3 [facility] OUTPATIEN INC T OFFICE 41021 MCKEMIE MCKEMIE OUTPATIEN 3 3 JR TEGAN JAVED T VISIT 15 MINUTES EMERGENCY 55793 MELISA HARMON DEPT 3 3 EMERGENCY VISIT SERVICES HIGH SEVERITY& THREAT [facility] RENEE - 3 3 [facility] OUTPATIEN INC T EMERGENCY 32937 R[facility] 3 3 [facility] DEPARTMEN INC T VISIT HIGH/URGE NT SEVERITY HOSPITAL ERNEE - 3 3 [facility] OUTPATIEN INC T HOSPITAL RENEE - 3 3 [facility] OUTPATIEN INC T HOSPITAL RENEE - 3 3 [facility] OUTPATIEN INC T OFFICE 42279 SURESH PRINCE OUTPATIEN 3 3 ZACKARY RAYMUNDO T VISIT 15 MINUTES HOSPITAL RENEE - 3 3 [facility] OUTPATIEN INC T EMERGENCY 87454 ALONDRA CANTU DEPT 3 3 III TEGAN III TEGAN VISIT HIGH SEVERITY& THREAT FUNJ
--- OUTSIDE RECORDS SUMMARY | 2016-11-09 10:45 | External Medical Summary Rpt ---
Author Author , RUFINO JOY Address Unknown Phone [email or web address] Care Team Providers Care Phosphorus Processing Supervisor Name Role Phone JONAH, JONAH Unavailable Unavailable BESSON, BESSON Unavailable Unavailable BESSON MODESTO, BESSON Unavailable Unavailable MODESTO MARCI SHIVAM, Unavailable Unavailable MARCI SHIVAM MARCI SHIVAM, Unavailable Unavailable MARCI SHIVAM NOBLE, NBOLE Unavailable Unavailable NOBLE ALL, NOBLE ALL Unavailable Unavailable DEREJE JUAN RAMON, Unavailable Unavailable DEREJE JUAN RAMON DEREJE JUAN RAMON, Unavailable Unavailable DEREJE JUAN RAMON SURESH, SURESH Unavailable Unavailable SURESH ZACKARY, Unavailable Unavailable SURESH ZACKARY [facility] Unavailable Unavailable CENTER, [facility] Unavailable Unavailable CENTER, [facility] Unavailable Unavailable INC, [facility] Unavailable Unavailable HOSPITAL P, [facility], Unavailable Unavailable [facility] Unavailable Unavailable IMAGING [facility], [facility] Un[facility], [facility] Unavailable Unavailable INTERNAL MED, [facility] KELSEY, KELSEY Unavailable Unavailable [...] Diagnosis DOS Provider Status J189 PNEUMONIA 09-08-2016 [facility] U[facility]PECIFIED SERV ORGANISM [facility] J219 ACUTE 09-08-2016 [facility] BRONCHIOLIT SERV IS [facility] UNSPECIFIED J672 BIRD 09-08-2016 [place] [facility] FANCIERS SERV LUNG [facility] J8410 PULMONARY 09-08-2016 [facility] FIBROSIS SERV UNSPECIFIED FOUNDATION F50245 OTH SPEC 09-08-2016 [place] D/O BONE MEDICAL DENSITY IMAGING ASS STRUCTURE RT THIGH R0609 OTHER FORMS 09-08-2016 [place] [facility] OF DYSPNEA SERV [facility] Z780 ASYMPTOMATI 09-08-2016 [place] C [facility]ICAL MENOPAUSAL IMAGING ASS STATE I7300 [...] INC N J984 OTHER 04-01-2016 [facility] DISORDERS [place] OF LUNG INTERNAL MED R05 COUGH 03-19-2016 [facility] J679 HYPERSENSIT 09-25-2015 [facility] PNEUMONIT INC D/T UNS ORGANIC DUST R918 OTHER 09-25-2015 [place] NONSPECIFIC MEDICAL ABNORMAL IMAGING ASS FINDING OF LUNG FIELD R0989 OTH SPEC SX 09-17-2015 [place] & SIGNS MEDICAL INVLV THE IMAGING ASS CIRC & RESP SYS R509 FEVER 09-17-2015 [place] UNSPECIFIED [facility]ICAL [facility]ING ASS K19547 UNSPECIFIED 09-16-2015 [place] [facility] ASTHMA SERV UNCOMPLICAT [facility]OUNDATION ED A048 OTHER 05-20-2015 [facility] SPECIFIED PHYSICIANS BACTERIAL GROUP INTESTINAL INFECTIONS 80894 EXTRINSIC 06-13-2014 [place] [facility] ASTHMA, SERV UNSPECIFIED FOUNDATION 4959 UNSPECIFIED 06-13-2014 [place] [facility] ALLERGIC SERV ALVEOLITIS FOUNDATION AND PNEUMONITIS 515 POSTINFLAMM 06-13-2014 [place] [facility] ATORY [facility] PULMONARY [facility] FIBROSIS 7109 UNSPECIFIED 06-13-2014 [place] [facility] DIFFUSE SERV CONNECTIVE [facility] TISSUE DISEASE 2768 HYPOPOTASSE 05-23-2014 [facility] ISHA [place] INTERNAL MED 2859 UNSPECIFIED 05-23-2014 [facility] ANEMIA [place] INTERNAL MED 486 PNEUMONIA, 05-23-2014 [facility] ORGANISM [place] UNSPECIFIED INTERNAL MED 2830 AUTOIMMUNE 04-30-2014 [facility] ANEMIAS INC 4830 PNEUMONIA 04-11-2014 [place] [facility] DUE TO SERV MYCOPLASMA [facility] PNEUMONIAE 56873 DEHYDRATION 03-16-2014 [facility] INC 496 CHRONIC 03-16-2014 [facility] P NEC 64261 OTHER 03-16-2014 [place] DISEASES OF MEDICAL LUNG NOT IMAGING ASS ELSEWHERE CLASSIFIED 41182 FEVER 03-16-2014 [facility] UNSPECIFIED [facility] INTERNAL MED 59515 OTHER 03-16-2014 [place] NONSPECIFIC MEDICAL ABNORMAL IMAGING ASS FINDING OF [...] ALVEOL&IZABELA [facility] ETOALVEOL INTERNAL PNEUMONOPAT MED HIES 81484 UNSPECIFIED 11-13-2013 [facility] ARTHROPATHY INTERNAL MULTIPLE MED SITES 65545 EXTRINSIC 09-20-2013 [facility] ASTHMA, JAM WITH EXACERBATIO N 88734 LOSS OF 05-31-2013 [facility] WEIGHT JAM 4952 BIRD-FANCIE 03-01-2013 [facility] RS LUNG JAM 6954 LUPUS 03-01-[place] [address] PECTUS 03-01-2013 [facility] EXCAVATUM JAM 54587 ACUTE 02-08-2013 [facility] IS DUE OTH INC INFECTIOUS ORGANISMS 51386 SHORTNESS 01-25-2013 [facility] OF BREATH JAM 7862 COUGH 01-25-2013 [facility] 24641 UNSPECIFIED 12-19-2012 [facility] RESPIRATORY ABNORMALITY 74156 OTHER 10-16-2012 [facility] DYSPNEA AND TEGAN RESPIRATORY ABNORMALITI ES V1261 PERSONAL 10-16-2012 [facility] HISTORY TEGAN PNEUMONIA RECURRENT V148 PERSONAL 10-16-2012 [facility] HISTORY TEGAN ALLERGY OTH SPEC MEDICINAL AGTS V5864 LONG-TERM 10-16-2012 [facility] USE TEGAN NON-STEROID AL ANTI-INFLAM MATORIES 87652 NUCLEAR 08-16-2012 [facility] SCLEROSIS SHIVAM 3669 UNSPECIFIED 08-16-2012 [facility]ARACT [facility] INC 3688 OTHER 07-19-2012 [facility] SPECIFIED SHIVAM VISUAL DISTURBANCE S 2410 NONTOXIC 05-02-2012 [facility]INODULAR [facility] GOITER INC 2409 GOITER, 04-18-2012 DEREJE UNSPECIFIED JAUN RAMON 481 PNEUMOCOCCA 04-18-2012 [facility] Bower PNEUMONIA [...] DOS Code Location Performer Comment DXA BONE 98840 [place] NOBLE DENSITY 7 MEDICAL STUDY 1/> IMAGING SITES ASS AXIAL SKEL IM ADM 29198 [facility] SURESH PRQ ID 7 [facility] SUBQ/IM INTERNAL NJXS 1 MED VACCINE PCV13 99991 [facility] S[facility] VACCINE 7 [facility] FOR INTERNAL INTRAMUSC MED ULAR USE ANNUAL G0439 [facility] S[facility] WELLNESS 7 VALLEY VST; INTERNAL PERSONALI MED ZED PPS SUBSQT VST GENERAL 31021 [facility] PANEL INC INC LIPID 94478 [facility] FRYEON PANEL 7 [facility] INC INC COLLECTIO 90632 [facility] N VENOUS 7 [facility] BLOOD INC INC VENIPUNCT URE RADIOLOGI 79939 [facility] C EXAM 6 MEDICAL CHEST 2 IMAGING VIEWS ASS FRONTAL&L ATERAL IIV 11651 [facility] VACCINE 6 PHARMACY PHARMACY PRESERV #591 #591 FREE INCREASED AG CONTENT IM ADMINISTR G0008 [facility] ATION OF PHARMACY PHARMACY INFLUENZA #591 #591 VIRUS VACCINE IMMUNODIF 20676 [facility] D[facility] FUSION 6 [facility] GEL INC INC DIFFUSION QUAL EA AG/ANTBDY COLLECTIO 41493 [facility] D[facility] N VENOUS 6 [facility] BLOOD INC INC VENIPUNCT URE ALLERGEN 73193 [facility] D[facility] SPECIFIC 6 [facility] IGG INC INC EVELYN/SEMI EVELYN EA ALLERGEN ANTIBODY 79076 [facility] D[facility]AN ASPERGILL 6 [facility] US INC INC CT THORAX 00966 [place] NOBLE ALL W/O 6 MEDICAL CONTRAST IMAGING MATERIAL ASS RADIOLOGI 67837 [facility] C EXAM 6 [facility] CHEST 2 INC INC VIEWS FRONTAL&L ATERAL SPMTRY 10594 EFE LOW W/VC 6 MEDICAL JAM EXPIRATOR SERV Y LESLYE FOUNDATIO W/WO MXML N VOL VNTJ BRNCDILAT 39341 [facility] RSPSE 6 [facility] SPMTRY INC INC PRE&POST- BRNCDILAT ADMN PRESSURIZ 93278 [facility] D[facility] ED/NONPRE 6 [facility] SSURIZED INC INC INHALATIO N TREATMENT PULMONARY 36945 EFE KELSEY STRESS 6 MEDICAL JAM TESTING SERV SIMPLE FOUNDATIO N GAS 20829 EFE KELSEY DILUT/WAS 6 MEDICAL JAM HOUT LUNG SERV VOL W/WO FOUNDAT[place] DISTRIB N VENT&[place] [address] [place] DIFFUSING 6 MEDICAL JAM CAPACITY SERV FOUNDATIO N NONINVASI 99373 RENEEMATTHEW DURAN VE 6 [facility] EAR/PULSE INC INC OXIMETRY MULTIPLE DETER IAADIADOO 06738 [facility] BESSON 5 VALLEY MODESTO INFLUENZA INTERNAL MED INJECTION J0696 [facility] 5 [facility] CEFTRIAXO INTERNAL INTERNAL NE SODIUM MED MED PER 250 MG THERAPEUT 44785 [facility] B[facility]ON IC 5 [facility] MODESTO PROPHYLAC INTERNAL TIC/DX MED INJECTION SUBQ/IM COLLECTIO 34436 [facility] D[facility] N VENOUS 5 [facility] BLOOD INC INC VENIPUNCT URE ANTIBODY 42526 [facility] D[facility]AN IDENTIFIC 5 [facility] ATION INC INC LEUKOCYTE ANTIBODIE S ANTIHUMAN 83095 [facility] FRYEON GLOBULIN 5 MEM [facility] DIRECT INC INC EACH ANTISERUM BLOOD 64883 [facility] RENEE COUNT 5 [facility] COMPLETE INC INC AUTO&AUTO DIFRNTL WBC ANTINUCLE 23501 [facility] DURAN AR 5 [facility] ANTIBODIE INC INC S HERBER BASIC 30108 R[facility] RENEE METABOLIC 5 [facility] PANEL INC INC CALCIUM TOTAL BLOOD 22250 [facility] RENEE COUNT 4 [facility] COMPLETE INC INC AUTO&AUTO DIFRNTL WBC COMPREHEN 08883 [facility] RENEE SIVE 4 [facility] METABOLIC INC INC PANEL HOSPITAL 10645 [facility] DISCHARGE 4 [facility] INTERNAL MANAGEMEN MED T 30 MIN/< SBSQ [address] CARE/DAY INTERNAL 35 MED MINUTES SBSQ [address] [place] [address] CARE/DAY INTERNAL 35 MED MINUTES IAADIADOO 21954 [facility] 4 [facility] INFLUENZA INTERNAL MED INITIAL [address] CARE/DAY INTERNAL 50 MED MINUTES RADIOLOGI 89074 [place] DEREJE C EXAM 4 MEDICAL JUAN RAMON CHEST 2 IMAGING VIEWS ASS FRONTAL&L ATERAL ECG 24143 [facility] COULTER ROUTINE 4 [facility] W/LEAST P 12 LDS I&R ONLY INJECTION J0696 [facility] CEFTRIAXO INTERNAL NE SODIUM MED PER 250 MG THERAPEUT 01297 [facility] IC 4 [facility] PROPHYLAC INTERNAL TIC/DX MED INJECTION SUBQ/IM INJECTION J3301 [facility] SERAFINSON 4 [facility] TRIAMCINO INTERNAL LONE MED ACETONIDE NOS 10 MG COMPREHEN 28251 [facility] D[facility] SIVE 4 [facility] METABOLIC INC INC PANEL CT THORAX 32122 AMPARO JESUSUTCHER W/O 4 MEDICAL JUAN RAMON CONTRAST IMAGING MATERIAL ASS NONINVASI 01706 [facility] DURAN VE 4 [facility] EAR/PULSE INC INC OXIMETRY SINGLE DETER BRNCDILAT 69917 [facility] D[facility] RSPSE 4 [facility] SPMTRY INC INC PRE&[place] [address] R[facility] DURAN DIFFUSING 4 [facility] CAPACITY INC INC GAS 73336 [facility] DURAN DILUT/WAS 4 [facility] HOUT LUNG INC INC VOL W/WO DISTRIB VENT&V CT THORAX 03568 [facility] D[facility] W/O 3 [facility] [place] [address] R[facility] DURAN GAMMAGLOB 3 [facility] ULIN IGA INC INC IGD IGG IGM EACH ANTIBODY 60239 [facility] D[facility] ASPERGILL 3 [facility] US INC INC BLOOD 51693 [facility] DURAN COUNT 3 [facility] COMPLETE INC INC AUTO&AUTO DIFRNTL WBC ANTINUCLE 75609 [facility] DURAN AR 3 [facility] ANTIBODIE INC INC S HERBER SEDIMENTA 48537 [facility] D[facility] TION RATE 3 [facility] RBC INC INC NON-AUTOM ATED IMMUNODIF 00326 [facility] D[facility] FUSION 3 [facility] GEL INC INC DIFFUSION QUAL EA AG/[place] [address] R[facility] DURAN GAMMAGLOB 3 [facility] ULIN IGE INC INC ALLERGEN 73384 [facility] DURAN SPECIFIC 3 [facility] IGG INC INC EVELYN/SEMI EVELYN EA ALLERGEN COMPREHEN 84279 R[facility] DURAN SIVE 3 [facility] METABOLIC INC INC PANEL GAS 02931 [facility] D[facility] DILUT/WAS 3 [facility] HOUT LUNG INC INC VOL W/WO DISTRIB VENT&V BRNCDILAT 57780 [facility] D[facility] RSPSE 3 [facility] SPMTRY INC INC PRE&POST- BRNCDILAT ADMN ECHO 96929 [facility] DURAN TTHRC R-T 3 [facility] 2D INC INC W/WOM-MOD E COMPL SPEC&COLR D ECG 02192 MELISA HARMON ROUTINE 3 EMERGENCY ECG SERVICES W/LEAST 12 LDS I&R ONLY RADIOLOGI 72626 [facility] DURAN C EXAM 3 [facility] CHEST 2 INC INC VIEWS FRONTAL&L ATERAL BLOOD 64006 [facility] DURAN COUNT 3 [facility] COMPLETE INC INC AUTO&AUTO DIFRNTL WBC PRESSURIZ 13093 [facility] D[facility] ED/NONPRE 3 [facility] SSURIZED INC INC INHALATIO N TREATMENT ECG 54296 [facility] DURAN ROUTINE 3 [facility] ECG INC INC W/LEAST 12 LDS TRCG ONLY W/O I&R FIBRIN 35412 [facility] D[facility] DGRADJ 3 [facility] PRODUCTS INC INC D-DIMER QUAL/SEMI EVELYN POSTERIOR V2632 [facility] DUR[facility] CHAMBER 3 [facility] INTRAOCUL INC INC AR LENS CATARACT 73959 [facility] DURAN REMOVAL 3 [facility] INSERTION INC INC OF LENS OPH BMTRY 55347 [facility] US 3 SHIVAM SHIVAM ECHOGRAPY A-SCAN IO LENS PWR ANTIONETTE OPHTH 43053 [facility] MEDICAL 3 SHIVAM SHIVAM XM&EVAL COMPRE NEW PT 1/> VST THYROID 17853 [facility] DUR[facility] UPTAKE 3 [facility] W/BLOOD INC INC FLOW SNGLE/MUL T EVELYN MIC IODINE A9516 [facility] DURAN I-123 3 [facility] SODIUM INC INC IODIDE DX PER 100 UCI TO 999 RADIOLOGI 05619 [facility] D[facility] C EXAM 3 [facility] CHEST 2 INC INC VIEWS FRONTAL&L ATERAL US SOFT 85444 R[facility]EE DURAN TISSUE 3 [facility] HEAD & INC INC NECK REAL TIME IMGE DOCM RADIOLOGI 22349 [facility] DURAN C EXAM 3 [facility] CHEST 2 INC INC VIEWS FRONTAL&L ATERAL IIV3 74093 [facility] DURAN VACCINE 3 [facility] SPLIT CENTER CENTER VIRUS 0.5 ML DOSAGE IM USE PPSV23 47744 R[facility] DURAN VACCINE 2 3 [facility] YRS OR CENTER CENTER OLDER FOR SUBQ/IM USE GENERAL 88181 RENEE DURAN [facility] 3 [facility] [place] [address] RENEE DURAN FREE 3 [facility] THYROXINE INC INC HOSPITAL 61397 [facility] 3 [place] MODE[facility]O DAY MANAGEMEN T 30 MIN/< SBSQ 96001 [facility] 3 MODE[place] MODESTO CARE/DAY 25 MINUTES RADIOLOGI 44286 DEREJE DEREJE C 3 JUAN RAMON JUAN RAMON EXAMINATI ON CHEST SINGLE VIEW FRONTAL INITIAL 44796 [facility] 3 JR TEGAN JR TEGAN CARE/DAY 50 MINUTES Encounters Encounter Start End Date Code Location Performer Type Date OFFICE 38422 [place] [facility] OUTPATI[facility] 7 7 MEDICAL T VISIT SERV 25 FOUNDATIO MINUTES N OFFICE 27130 [facility] OUTPATIEN 7 7 [facility] T VISIT INTERNAL 15 MED [facility] RENEE - 7 7 [facility] OUTPATIEN INC T OFFICE 58576 [facility] B[facility]ON OUTPATIEN 7 7 [facility] T VISIT INTERNAL 15 MED MINUTES OFFICE 26206 [facility] OUTPATIEN 7 7 [facility] T VISIT INTERNAL 25 MED [facility] RENEE - 6 6 [facility] INPATIENT INC OFFICE 41967 [place] OUTPATIEN 6 6 MEDICAL JAM T VISIT SERV 15 FOUNDATIO MINUTES [facility] RENEE - OTHER 6 6 [facility] INC OFFICE 73037 [place] OUTPATIEN 6 6 MEDICAL JAM T VISIT SERV 15 FOUNDATIO MINUTES [facility] RENEE - 6 6 [facility] OUTPATIEN INC T HOSPITAL RENEE - 6 6 [facility] OUTPATIEN INC T OFFICE 62616 [facility] TOD OUTPATIEN 6 6 PHYSICIAN T VISIT S GROUP 10 MINUTES OFFICE 78886 [facility] OUTPATIEN 6 6 PHYSICIAN T VISIT S GROUP 10 MINUTES OFFICE 89093 [facility] OUTPATIEN 5 5 [facility] T VISIT INTERNAL 15 MED MINUTES OFFICE 41607 [place] OUTPATI[facility] 5 5 MEDICAL JAM T VISIT SERV 25 FOUNDATIO MINUTES N OFFICE 85452 [facility] OUTPATIEN 5 5 [facility] T VISIT INTERNAL 15 MED MINUTES [facility]OSPITAL RENEE - 5 5 [facility] OUTPATIEN INC T OFFICE 43231 [place] OUTPATIEN 5 5 MEDICAL JAM T VISIT SERV 25 FOUNDATIO MINUTES [facility]OSPITAL RENEE - 4 4 [facility] OUTPATIEN INC T OFFICE 18718 [facility] SURESH OUTPATIEN 4 4 [facility] ZACKARY T VISIT INTERNAL 15 MED MINUTES [facility]OSPITAL RENEE - 4 4 [facility] INPATIENT INC OFFICE 46210 [facility] B[facility]ON OUTPATIEN 4 4 [facility] MODESTO T VISIT INTERNAL 15 MED MINUTES OFFICE 50957 K[facility] KELSEY OUTPATIEN 4 4 JAM JAM T VISIT 15 MINUTES OFFICE 24724 [facility] B[facility] OUTPATIEN 4 4 [facility] MODESTO T VISIT INTERNAL 15 MED MINUTES HOSPITAL RENEE - 4 4 [facility] OUTPATIEN INC [facility]OSPITAL RENEE - 4 4 [facility] OUTPATIEN INC T OFFICE 12674 [facility] KELSEY OUTPATIEN 4 4 JAM JAM T VISIT 25 MINUTES OFFICE 66994 [facility] KELSEY OUTPATIEN 4 4 YAZMIN ARCE T VISIT 25 MINUTES HOSPITAL RENEE - 4 4 [facility] OUTPATIEN INC T OFFICE 52950 [facility] KELSEY OUTPATIEN 3 3 YAZMIN ARCE T VISIT 25 MINUTES HOSPITAL RENEE - 3 3 [facility] OUTPATIEN INC T OFFICE 09657 [facility] KELSEY CONSULTAT 3 3 YAZMIN ARCE ION NEW/ESTAB PATIENT 80 MIN HOSPITAL RENEE - 3 3 [facility] OUTPATIEN INC T OFFICE 62512 [facility] OUTPATIEN 3 3 JR TEGAN JAVED T VISIT 15 MINUTES OFFICE 70532 [facility] OUTPATIEN 3 3 JR TEGAN JAVED T VISIT 15 MINUTES HOSPITAL RENEE - 3 3 [facility] OUTPATIEN INC T OFFICE 01729 [facility] OUTPATIEN 3 3 JR TEGAN JAVED T VISIT 15 MINUTES EMERGENCY 36470 MELISA HARMON DEPT 3 3 EMERGENCY VISIT SERVICES HIGH SEVERITY& THREAT [facility] RENEE - 3 3 [facility] OUTPATIEN INC T EMERGENCY 86876 [facility] 3 3 [facility] DEPARTMEN INC T VISIT HIGH/URGE NT SEVERITY HOSPITAL R[facility] - 3 3 [facility] OUTPATIEN INC T HOSPITAL RENEE - 3 3 [facility] OUTPATIEN INC T HOSPITAL RENEE - 3 3 [facility] OUTPATIEN INC T OFFICE 60885 [facility] PRINCE OUTPATIEN 3 3 ZACKARY RAYMUNDO T VISIT 15 MINUTES HOSPITAL RENEE - 3 3 [facility] OUTPATIEN INC T EMERGENCY 04315 ALONDRA CANTU DEPT 3 3 III TEGAN III TEGAN VISIT HIGH SEVERITY& THREAT FUNJ
--- OUTSIDE RECORDS SUMMARY | 2016-11-09 10:46 | External Medical Summary Rpt ---
Author Author [employer], [employer] Organization [employer] Address Unknown Phone Unavailable Results CBC W Auto Differential panel in Blood Observa Value Referen Units Interpr Notes Date tion ce etation Range Basophils 0 - 0.2 K/MM3 Normal No Oct 28 informati 2016 3:23 [#/volume on in PM ] in source Blood by data Automated count Basophils 0.1 - 2.0 % Normal No Oct 28 /100 informati 2016 3:23 leukocyte on in PM s in source Blood by data Automated count Eosinophi 0.0 - 0.4 K/mm3 Normal No Oct 28 ls informati 2016 3:23 [#/volume on in PM ] in source Blood by data Automated count Eosinophi 0.1 - % Normal No Oct 28 ls/100 12.0 informati 2016 3:23 leukocyte on in PM s in source Blood by data Automated count Granulocy 1.8 - 7.8 K/mm3 Normal No Oct 28 humbreto informati 2016 3:23 [#/volume on in PM ] in source Blood by data Automated count Granulocy 37.0 - % Normal No Oct 28 humberto/100 80.0 informati 2016 3:23 leukocyte on in PM s in source Blood by data Automated count Hematocri 37.0 - % Normal No Oct 28 t [Volume 47.0 informati 2016 3:23 on in PM Fraction] source of Blood data Hemoglobi 12.2 - g/dL Low No Oct 28 n 16.2 informati 2016 3:23 [Mass/vol on in PM ume] in source Blood data Lymphocyt 0.7 - 4.5 K/mm3 Normal No Oct 28 es informati 2016 3:23 [#/volume on in PM ] in source Unspecifi data ed specimen by Automated count Lymphocyt 10 - 50.0 % Normal No Oct 28 es informati 2016 3:23 [#/volume on in PM ] in source Unspecifi data ed specimen by Automated count Erythrocy 27 - 31.2 pg Normal No Oct 28 te mean informati 2016 3:23 corpuscul on in PM ar source hemoglobi data n [Entitic mass] Erythrocy 31.8 - g/dl Low No Oct 28 te mean 35.4 informati 2016 3:23 corpuscul on in PM ar source hemoglobi data n concentra tion [Mass/vol ume] by Automated count Erythrocy 82.2 - fl Normal No Oct 28 te mean 97.8 informati 2016 3:23 corpuscul on in PM ar volume source [Entitic data volume] by Automated count Monocytes 0.1 - 1.0 K/mm3 Normal No Oct 2 informati 2016 3:23 [#/volume on in PM ] in source Blood by data Automated count Monocytes 1.7 - 9.3 % Normal No Oct 2 /100 informati 2016 3:23 leukocyte on in PM s in source Blood by data Automated count Platelet 7.4 - fl Normal No Oct 28 mean 10.4 informati 2016 3:23 volume on in PM [Entitic source volume] data in Blood by Automated count Platelets 142 - 424 K/mm3 Normal No Oct 2 2016 3:23 [#/volume on in PM ] in source Blood data Erythrocy 4.2 - 5.4 M/mm3 Normal No Oct 2 humberto informati 2017 3:23 [#/volume on in PM ] in source Amniotic data fluid Erythrocy 11.5 - % Normal No Oct 28 te 17.5 ati 2016 3:23 distribut on in PM ion width source [Entitic data volume] by Automated count Leukocyte 4.8 - K/MM3 Normal No Oct 2 s 10.8 ati 2016 3:23 [#/volume on in PM ] in source Blood data Erythrocyte sedimentation rate by Westergren method Observa Value Referen Units Interpr Notes Date tion ce etation Range Erythrocy 0 - 30 mm/hr High No Oct 28 te informati 2017 3:23 sedimenta on in PM tion rate source by data Westergre n method Comprehensive metabolic 2000 panel in Serum or Plasma Observa Value Referen Units Interpr Notes Date tion ce etation Range Albumin/G 1.1 - 1.8 No Low No Oct 2 lobulin informati informati 2016 3:23 [Mass on in on in PM ratio] in source source Serum or data data Plasma Albumin 3.4 - 5.0 gm/dL Normal No Oct 2 [Mass/vol informati 2017 3:23 ume] in on in PM Serum or source Plasma data Alkaline 46 - 116 U/L Normal No Oct 28 phosphata informati 2016 3:23 se on in PM [Enzymati source c data activity/ volume] in Serum or Plasma Bilirubin 0.2 - 1.0 mg/dL Normal No Oct 28 .total informati 2016 3:23 [Mass/vol on in PM ume] in source Serum or data Plasma Urea 7 - 18 mg/dL Normal No Oct 28 nitrogen informati 2016 3:23 [Mass/vol on in PM ume] in source Serum or data Plasma Calcium 8.5 - mg/dL Normal No Oct 28 [Mass/vol 10.1 informati 2016 3:23 ume] in on in PM Serum or source Plasma data Chloride 98 - 107 mmoL/L Normal No Oct 28 [Moles/vo informati 2016 3:23 lume] in on in PM Serum or source Plasma data Carbon 21.0 - mmoL/L Normal No Oct 28 dioxide, 32.0 informati 2016 3:23 total on in PM [Moles/vo source lume] in data Serum or Plasma Creatinin 0.55 - mg/dL Normal No Oct 28 e 1.02 informati 2016 3:23 [Mass/vol on in PM ume] in source Serum or data Plasma Estimated 59- ML/MIN No REFERENCE Oct 28 informati RANGE: 2016 3:23 glomerula on in >60 PM r source ML/MIN/1. filtratio data 73 SQUARE n rate METERSIf (GF this patient is -A merican, then multiply theresult by 1.210. Globulin 1.3 - 3.2 gm/dL High No Oct 28 [Mass/vol informati 2016 3:23 ume] in on in PM Serum source data Glucose 74 - 106 mg/dL Normal No Oct 28 [Mass/vol informati 2016 3:23 ume] in on in PM Serum or source Plasma data Potassium 3.5 - 5.1 mmoL/L Normal No Oct 28 informati 2016 3:23 [Moles/vo on in PM lume] in source Serum or data Plasma Sodium 136 - 145 mmoL/L Normal No Oct 28 [Moles/vo informati 2016 3:23 lume] in on in PM Serum or source Plasma data Aspartate 15 - 37 U/L Normal No Oct 28 informati 2016 3:23 aminotran on in PM sferase source [Enzymati data c activity/ volume] in Serum or Plasma Alanine 12 - 78 U/L Normal No Oct 28 aminotran informati 2016 3:23 sferase on in PM [Enzymati source c data activity/ volume] in Serum or Plasma Protein 6.4 - 8.2 gm/dL Normal No Oct 28 [Mass/vol informati 2016 3:23 ume] in on in PM Serum or source Plasma data Urate [Mass/volume] in Serum or Plasma Observa Value Referen Units Interpr Notes Date tion ce etation Range Urate 2.6 - 7.2 mg/dL Normal No Oct 28 [Mass/vol informati 2016 3:23 ume] in on in PM Serum or source Plasma data
--- OUTSIDE RECORDS SUMMARY | 2016-11-09 10:46 | External Medical Summary Rpt ---
Author Author , RUFINO JOY Address Unknown Phone [email or web address] Immunization Name Date Rout CVX Reac Dose Comm Prov Is Faci e tion ent ider Refu lity Give sed n Infl 10-1 135 0.5 Hist WALM No WALM uenz 3-20 mL oric ART5 ART5 a, 16 al 91 91 High Info rmat Dose ion - Sour ce Unsp ecif ied PPV2 01-1 Intr 33 999 Hist H149 No H149 3 7-20 amus oric 13 cula al r Info rmat ion - Sour ce Unsp ecif ied
--- OUTSIDE RECORDS SUMMARY | 2016-11-09 10:46 | External Medical Summary Rpt ---
[...] - 7.8 K/mm3 Normal No Oct 28 humberto informati 2016 3:23 [#/volume on in PM [...]
--- OUTSIDE RECORDS SUMMARY | 2016-11-09 10:46 | External Medical Summary Rpt ---
Author Author , RUFINO JOY Address Unknown Phone [email or web address] Immunization Name Date Rout CVX Reac Dose [...]
[2016-11-09 10:59] LABS: NEUTROPHILS 80 % (42-76)
[2016-11-09 11:07] LABS: FREE THYROXIN INDEX 5.2 ug/dl (5.93-13.13)
[2016-11-09 11:13] LABS: BUN 20 mg/dL (7-18)
[2016-11-09 11:17] LABS: GFR (ESTIMATED) 83 ML/MIN (59-)
--- OUTSIDE RECORDS SUMMARY | 2016-11-09 12:36 | External Medical Summary Rpt ---
Author Author , RUFINO JOY Address Unknown Phone [email or web address] Care Team Providers Care Map Compiler Name Role Phone JONAH MCKENZIE Unavailable Unavailable [...] Unavailable SURESH ZACKARY, Unavailable Unavailable SURESH ZACKARY [facility] Unavailable Unavailable CENTER, [facility] Unavailable Unavailable CENTER, [facility] Unavailable Unavailable INC, [facility] Unavailable Unavailable HOSPITAL P, [facility], Unavailable Unavailable [facility] Unavailable Unavailable IMAGING ASS, [facility] Sarah Green MD, Unavailable Unavailable Sarah [facility] Un[facility], [facility] Unavailable Unavailable INTERNAL MED, [facility] KELSEY, KELSEY Unavailable Unavailable KELSEY JAM, Unavailable Unavailable KELSEY JAM KELSEY JAM, Unavailable Unavailable KELSEY JAM MCKEMIE TEGAN, Unavailable Unavailable MCKEMIE JR JAVED MCKEMIE TEGAN, Unavailable Unavailable MCKEMIE TEGAN CHELE TOD, CHELE TOD Unavailable Unavailable [facility] Unavailable Unavailable #591, [facility] ALONDRA JAVED, Unavailable Unavailable HASMUKH GARCIA III Unavailable Unavailable Purpose Continuity of Care Document - 04-04-2012 through 2016 Problems Code Diagnosis DOS Provider Status J189 PNEUMONIA 09-08-2016 [place] [facility] UNSPECIFIED SERV ORGANISM [facility] J219 ACUTE 09-08-2016 [place] [facility] BRONCHIOLIT SERV IS [facility] UNSPECIFIED J672 BIRD 09-08-2016 [place] [facility] FANCIERS SERV LUNG [facility] J8410 PULMONARY 09-08-2016 [place] [facility] FIBROS[place] SERV UNSPECIFIED [facility] I41426 OTH SPEC 09-08-2016 [place] D/O [facility]ONE MEDICAL DENSITY IMAGING ASS STRUCTURE RT THIGH R0609 OTHER FORMS 09-08-2016 [place] [facility] OF DYSPNEA SERV [facility] Z780 ASYMPTOMATI 09-08-2016 [place] C MEDICAL MENOPAUSAL IMAGING ASS STATE I7300 [...] [facility] I10 ESSENTIAL 05-13-2016 [facility] HYPERTENSIO INC N J984 OTHER 04-01-2016 [place] DISORDERS [facility] OF LUNG INTERNAL MED R05 COUGH 03-19-2016 [facility] J679 HYPERSENSIT 09-25-2015 [facility] PNEUMONIT INC D/T UNS ORGANIC DUST R918 OTHER 09-25-2015 [place] NONSPECIFIC MEDICAL ABNORMAL IMAGING ASS FINDING OF LUNG FIELD R0989 OTH SPEC SX 09-17-2015 [place] & SIGNS MEDICAL INVLV THE IMAGING ASS CIRC & RESP SYS R509 FEVER 09-17-2015 [place] UNSPECIFIED MEDICAL IMAGING ASS J20743 UNSPECIFIED 09-16-2015 [place] [facility] ASTHMA SERV UNCOMPLICAT [facility]OUND[facility] ED A048 OTHER 05-20-2015 [facility] SPECIFIED PHYSICIANS BACTERIAL GROUP INTESTINAL INFECTIONS 70531 EXTRINSIC 06-13-2014 [place] [facility] ASTHMA, SERV UNSPECIFIED FOUNDATION 4959 UNSPECIFIED 06-13-2014 [place] [facility] ALLERGIC SERV ALVEOLITIS FOUND[facility] AND PNEUMONITIS 515 POSTINFLAMM 06-13-2014 [place] [facility] ATORY [facility] PULMONARY [facility] FIBROSIS 7109 UNSPECIFIED 06-13-2014 [place] [facility] DIFFUSE SERV CONNECTIVE [facility] TISSUE DISEASE 2768 HYPOPOTASSE 05-23-2014 [facility] ISHA [facility] INTERNAL MED 2859 UNSPECIFIED 05-23-2014 [facility] ANEMIA [facility] INTERNAL MED 486 PNEUMONIA, 05-23-2014 [facility] ORGANISM VALLEY UNSPECIFIED INTERNAL MED 2830 AUTOIMMUNE 04-30-2014 [facility]OLYTIC [facility] ANEMIAS INC 4830 PNEUMONIA 04-11-2014 [place] [facility] DUE TO SERV MYCOPLASMA [facility] PNEUMONIAE 73547 DEHYDRATION 03-16-2014 [facility] INC 496 CHRONIC 03-16-2014 [facility] 46787 OTHER 03-16-2014 [place] DISEASES OF MEDICAL LUNG NOT IMAGING ASS ELSEWHERE CLASSIFIED 82195 FEVER 03-16-2014 [place] UNSPECIFIED VALLEY INTERNAL MED 72671 OTHER 03-16-2014 [place] NONSPECIFIC MEDICAL ABNORMAL IMAGING ASS FINDING OF LUNG FIELD V1254 PERSONAL HX 03-16-2014 [facility] TIA & CI [facility] W/O INC RESIDUAL DEFICITS V141 PERSONAL 03-16-2014 [facility] HISTORY [facility] ALLERGY INC OTHER ANTIBIOTIC AGENT 485 BRONCHOPNEU 02-05-2014 [facility] MONIA [facility] ORGANISM INTERNAL UNSPECIFIED MED 4918 OTHER 11-29-2013 KEL[facility] CHRONIC JAM BRONCHITIS 5168 OTH SPEC 11-13-2013 [facility] ALVEOL&IZABELA VALLEY ETOALVEOL INTERNAL PNEUMONOPAT MED HIES 88973 UNSPECIFIED 11-13-2013 [facility] ARTHROPATHY INTERNAL MULTIPLE MED SITES 01277 EXTRINSIC 09-20-2013 K[facility] ASTHMA, JAM WITH EXACERBATIO N 62019 LOSS OF 05-31-2013 [facility] WEIGHT JAM 4952 BIRD-FANCIE 03-01-2013 [facility] RS LUNG JAM 6954 LUPUS 03-01-2013 [facility] ERYTHEMATOS JAM 23804 PECTUS 03-01-2013 [facility] EXCAVATUM JAM 94989 ACUTE 02-08-2013 [facility] BRONCHIOLIT [facility] IS DUE OTH INC INFECTIOUS ORGANISMS 84750 SHORTNESS 01-25-2013 K[facility] OF BREATH JAM 7862 COUGH 01-25-2013 [facility] 84760 UNSPECIFIED 12-19-2012 [facility] TEGAN RESPIRATORY ABNORMALITY 786.09 786.09 10-16-2012 [place] RESPIRATORY [facility] 18060 OTHER 10-16-2012 [facility] DYSPNEA AND TEGAN RESPIRATORY ABNORMALITI ES V12.61 V12.61 10-16-2012 [facility] Hospital PNEUMONIA (RECURRENT) V1261 PERSONAL 10-16-2012 [facility] HISTORY TEGAN PNEUMONIA RECURRENT V14.8 V14.8 10-16-2012 [facility] HX-DRUG [facility] ALLERGY [facility] V148 PERSONAL 10-16-2012 [facility] HISTORY TEGAN ALLERGY OTH SPEC MEDICINAL AGTS V58.64 V58.64 10-16-2012 [facility] LONG-TERM([facility]USE Hospital OF NON-STEROID AL ANTI-INFLAM MATORIES V5864 LONG-TERM 10-16-2012 [facility] USE [facility] NON-STEROID AL ANTI-INFLAM MATORIES 71527 NUCLEAR 08-16-2012 [facility] SCLEROSIS SHIVAM 3669 UNSPECIFIED 08-16-2012 [facility] CATARACT [facility] 3688 OTHER 07-19-2012 [facility] SPECIFIED SHIVAM VISUAL DISTURBANCE S 2410 NONTOXIC 05-02-2012 [facility] UNINODULAR [facility] GOITER INC 2409 GOITER, 04-18-2012 [facility] UNSPECIFIED JUAN RAMON 481 PNEUMOCOCCA 04-18-2012 [facility] L PNEUMONIA [facility] INC 5183 PULMONARY 04-14-2012 [facility] EOSINOPHILI JUAN RAMON A V069 NEED PROPH 04-14-2012 [facility] MS VACCINATION HEALTH W/UNSPEC CENTER COMB VACCINE I10 ESSENTIAL (PRIMARY) HYPERTENSIO N R06.02 SHORTNESS OF BREATH R07.9 CHEST PAIN, UNSPECIFIED R53.83 OTHER FATIGUE Z78.0 ASYMPTOMATI C MENOPAUSAL [...] INE 16 PRES PHAR PHAR ERV STACEY IBARRA FREE #591 #591 INCR EASE D AG CONT ENT IM PPSV 03-29 33 LADI No LADI 23 7-20 WILFRID [...] Order Detail nces retati t Range on Differential panel, method unspecified - (11-09-2016 10:25) LYMPH 15 % 10% - Normal complet 017 50% ed 10:25 Platele NORMAL complet ts 017 ed [Presen 10:25 ce] in Blood by Light microsc opy D Dimer PPP (10-16-2012 12:50) D Dimer 236 0-400 complet PPP 013 ng/mL ed 12:50 CBC with AUTO DIFF (10-16-2012 12:50) WBC # 10-16- 5.5 4.8-10. complet Bld 013 K/MM3 8 ed Auto 12:50 RBC # 10-16-2 4.45 4.2-5.4 complet Bld 013 M/mm3 ed Auto 12:50 Hgb 11.9 12.2-16 complet Bld-mCn 013 g/dL .2 ed c 12:50 Hct Fr 37.8 % 37.0-47 complet Bld 013 .0 ed 12:50 MCV RBC 84.9 fl 82.2-97 complet 013 .8 ed 12:50 MCH RBC 07-21-2 26.8 pg 27-31.2 complet Qn 013 ed Auto 12:50 MEAN 07-21-2 31.6 31.8-35 complet CORPUSC 013 g/dl .4 ed ULAR 12:50 HGB CONC RDW RBC -21-2 15.0 % 11.5-17 complet Auto 013 .5 [...] DOS Code Location Performer Comment DXA BONE [address] [place] [address] MEDICAL STUDY 1/> IMAGING SITES ASS AXIAL SKEL PCV13 [address] [place] [address] FOR INTERNAL INTRAMUSC MED ULAR USE IM ADM [address] [facility] SURESH PRQ ID 7 VALLEY SUBQ/IM INTERNAL NJXS 1 MED VACCINE ANNUAL G0439 [facility] S[facility]H WELLNESS 7 VALLEY VST; INTERNAL PERSONALI MED ZED PPS SUBSQT VST COLLECTIO 74365 [facility] N VENOUS 7 [facility] BLOOD INC INC VENIPUNCT URE LIPID 30872 [facility] PANEL 7 MEM HOSP [facility] INC INC GENERAL 65597 [facility] 7 [facility]OS[facility] PANEL INC INC RADIOLOGI 36410 [facility] C EXAM 6 MEDICAL CHEST 2 IMAGING VIEWS ASS FRONTAL&L ATERAL IIV 70123 [facility] VACCINE 6 PHARMACY PHARMACY PRESERV #591 #591 FREE INCREASED AG CONTENT IM ADMINISTR G0008 [facility] ATION OF 6 PHARMACY PHARMACY INFLUENZA #591 #591 VIRUS VACCINE ANTIBODY 52204 [facility] DURAN [place] 6 [facility] US INC INC COLLECTIO 13429 [facility] N VENOUS 6 [facility] BLOOD INC INC VENIPUNCT URE CT THORAX 54668 [place] ALL W/O 6 MEDICAL CONTRAST IMAGING MATERIAL ASS ALLERGEN 66610 [facility] SPECIFIC 6 [facility]OS[facility] IGG INC INC EVELYN/SEMI EVELYN EA ALLERGEN IMMUNODIF 47940 [facility] FUSION 6 [facility] GEL INC INC DIFFUSION QUAL EA AG/ANTBDY RADIOLOGI 09033 [facility] D[facility]AN C EXAM 6 MEM HOS[facility] CHEST 2 INC INC VIEWS FRONTAL&L ATERAL SPMTRY 72136 EFE KELSEY W/VC 6 MEDICAL JAM EXPIRATOR SERV Y LESLYE FOUNDATIO W/WO MXML N VOL VNTJ BRNCDILAT 28575 [facility] RSPSE 6 MEM HOSP [facility] HOSP SPMTRY INC INC PRE&POST- BRNCDILAT ADMN PRESSURIZ 65895 [facility] ED/NONPRE 6 MEM HOSP [facility] SSURIZED INC INC INHALATIO N TREATMENT NONINVASI 67301 [facility] DURAN VE 6 [facility] EAR/PULSE INC INC OXIMETRY MULTIPLE DETER PULMONARY 42083 EFE [facility] STRESS 6 MEDICAL JAM TESTING SERV SIMPLE FOUNDATIO N GAS 22160 EFE K[facility] DILUT/WAS 6 MEDICAL JAM HOUT LUNG SERV VOL W/WO FOUNDAT[place] DISTRIB N VENT&[place] [address] EFE K[facility] DIFFUSING 6 MEDICAL JAM CAPACITY SERV FOUNDATIO N THERAPEUT 61426 [facility] IC 5 [facility] PROPHYLAC INTERNAL TIC/DX MED INJECTION SUBQ/IM INJECTION J0696 [facility] [place] 5 [facility] CEFTRIAXO INTERNAL INTERNAL NE SODIUM MED MED PER 250 MG IAADIADOO 09658 [facility] INFLUENZA INTERNAL MED ANTIBODY 00258 [facility] IDENTIFIC 5 [facility] ATION INC INC LEUKOCYTE ANTIBODIE S ANTIHUMAN 65963 [facility] GLOBULIN 5 [facility] DIRECT INC INC EACH ANTISERUM BLOOD 44645 [facility] D[facility] COUNT 5 [facility] COMPLETE INC INC AUTO&AUTO DIFRNTL WBC ANTINUCLE 49498 [facility] D[facility]AN AR 5 [facility] ANTIBODIE INC INC S HERBER BASIC 71980 [facility] D[facility] METABOLIC 5 [facility] PANEL INC INC CALCIUM TOTAL COLLECTIO 76689 [facility] D[facility] N VENOUS 5 [facility] BLOOD INC INC VENIPUNCT URE COMPREHEN 40547 [facility] D[facility]AN SIVE 4 [facility] METABOLIC INC INC PANEL BLOOD 22793 [facility] DURAN COUNT 4 [facility] COMPLETE INC INC AUTO&AUTO DIFRNTL WBC HOS[facility] 83515 [facility] 4 [facility] DAY INTERNAL MANAGEMEN MED T 30 MIN/< SBSQ [address] CARE/DAY INTERNAL 35 MED MINUTES SBSQ 81187 [facility] 4 [facility] [employer] [facility] CARE/DAY INTERNAL 35 MED MINUTES INITIAL [address] CARE/DAY INTERNAL 50 MED MINUTES ECG 89782 [facility] COULTER ROUTINE 4 [facility] W/LEAST P 12 LDS I&R ONLY RADIOLOGI 55428 AMPARO REYEZ C EXAM 4 MEDICAL JUAN RAMON CHEST 2 IMAGING VIEWS ASS FRONTAL&L ATERAL IAADIADOO 58063 [facility] SERAFINSON 4 [facility] INFLUENZA INTERNAL MED INJECTION J0696 [facility] [facility]ON 4 [facility] CEFTRIAXO INTERNAL NE SODIUM MED PER 250 MG INJECTION J3301 [place] BESSON 4 [facility] TRIAMCINO INTERNAL LONE MED ACETONIDE NOS 10 MG THERAPEUT 34424 [facility] IC 4 [facility] [employer] PROPHYLAC INTERNAL TIC/DX MED INJECTION SUBQ/IM COMPREHEN 18982 [facility] D[facility] SIVE 4 [facility] METABOLIC INC INC PANEL CT THORAX 03906 AMPARO REYEZ W/O 4 MEDICAL JUAN RAMON CONTRAST IMAGING MATERIAL ASS NONINVASI 88596 [facility]AN VE 4 [facility] EAR/PULSE INC INC OXIMETRY SINGLE DETER BRNCDILAT 54404 [facility]AN RSPSE 4 [facility] SPMTRY INC INC PRE&[place] [address] [facility] DIFFUSING 4 [facility] CAPACITY INC INC GAS 31336 [facility] D[facility] DILUT/WAS 4 [facility] HOUT LUNG INC INC VOL W/WO DISTRIB VENT&V CT THORAX 48283 [facility] D[facility] W/O 3 [facility] [address] [facility] GAMMAGLOB 3 [facility] ULIN IGA INC INC IGD IGG IGM EACH COMPREHEN 81395 [facility] SIVE 3 [facility] H[facility] [place] [address] R[facility] DURAN GAMMAGLOB 3 [facility] ULIN IGE INC INC ANTIBODY 43094 [facility] DURAN ASPERGILL 3 [facility] US INC INC BLOOD 84518 [facility] DURAN COUNT 3 [facility] COMPLETE INC INC AUTO&AUTO DIFRNTL WBC ANTINUCLE 19073 [facility] DURAN AR 3 [facility] ANTIBODIE INC INC S HERBER ALLERGEN 66708 [facility] D[facility] SPECIFIC 3 [facility] IGG INC INC EVELYN/SEMI EVELYN EA ALLERGEN SEDIMENTA 60469 [facility] D[facility] TIMATTHEW RATE 3 [facility] RBC INC INC NON-AUTOM ATED IMMUNODIF 02695 [facility] FUSION 3 [facility] GEL INC INC DIFFUSION QUAL EA AG/ANTBDY GAS 82670 [facility] D[facility] DILUT/WAS 3 [facility] HOUT LUNG INC INC VOL W/WO DISTRIB VENT&V BRNCDILAT 15216 [facility] DURAN RSPSE 3 [facility] SPMTRY INC INC PRE&POST- BRNCDILAT ADMN ECHO 78755 [facility] D[facility]AN TTHRC R-T 3 [facility] 2D INC INC W/WOM-MOD E COMPL SPEC&COLR D ECG 70781 MELISA HARMON ROUTINE 3 EMERGENCY ECG SERVICES W/LEAST 12 LDS I&R ONLY RADIOLOGI 21288 [facility] D[facility]AN C EXAM 3 [facility] CHEST 2 INC INC VIEWS FRONTAL&L ATERAL PRESSURIZ 79485 [facility] D[facility] ED/NONPRE 3 [facility] SSURIZED INC INC INHALATIO N TREATMENT ECG 68927 [facility] DURAN ROUTINE 3 [facility] ECG INC INC W/LEAST 12 LDS TRCG ONLY W/O I&R BLOOD 71432 [facility] DURAN COUNT 3 [facility] COMPLETE INC INC AUTO&AUTO DIFRNTL WBC FIBRIN 10326 [facility] D[facility] DGRADJ 3 [facility] PRODUCTS INC INC D-DIMER QUAL/SEMI EVELYN POSTERIOR V2632 RENEE RENEE CHAMBER 3 [facility] INTRAOCUL INC INC AR LENS CATARACT 23471 R[facility]EE DURAN REMOVAL 3 [facility] INSERTION INC INC OF LENS OPH BMTRY 96459 [facility] WALNUT US 3 SHIVAM SHIVAM ECHOGRAPY A-SCAN IO LENS PWR ANTIONETTE OPHTH 69449 [facility] 3 SHIVAM SHIVAM XM&EVAL COMPRE NEW PT 1/> VST IODINE A9516 [facility] I-123 3 [facility] SODIUM INC INC IODIDE DX PER 100 UCI TO 999 THYROID 22960 [facility] D[facility] UPTAKE 3 [facility] W/BLOOD INC INC FLOW SNGLE/MUL T EVELYN MIC RADIOLOGI 84095 R[facility]EE RENEE C EXAM 3 [facility] CHEST 2 INC INC VIEWS FRONTAL&L ATERAL US SOFT 50351 [facility] DURAN TISSUE 3 [facility] HEAD & INC [place] [address] [facility] D[facility] FREE 3 [facility] THYROXINE INC INC GENERAL 27925 [facility] DURAN HEALTH 3 [facility] PANEL INC INC RADIOLOGI 63923 [facility] DURAN C EXAM 3 [facility] CHEST 2 INC INC VIEWS FRONTAL&L ATERAL IIV3 73326 [facility] DURAN VACCINE 3 [facility] CENTER VIRUS 0.5 ML DOSAGE IM USE PPSV23 36529 RENEE DURAN VACCINE 2 3 [facility] YRS OR CENTER CENTER OLDER FOR SUBQ/IM USE HOSPITAL 03062 [facility] DISCHARGE 3 [place] [facility] DAY MANAGEMEN T 30 MIN/< SBSQ [address] [facility] 3 [place] MODESTO CARE/DAY 25 MINUTES RADIOLOGI 17713 DEREJE DEREJE Pierre 3 JUAN RAMON JUAN RAMON EXAMINATI ON CHEST SINGLE VIEW FRONTAL INITIAL 03396 [facility] 3 JR TEGAN JR TEGAN CARE/DAY 50 MINUTES Encounters Encounter Start End Date Code Location Performer Type Date OFFICE 51313 [facility] OUTPATIEN 7 7 MEDICAL T VISIT SERV 25 FOUNDATIO MINUTES N OFFICE 45106 [facility] OUTPATILALY 7 7 VALLEY T VISIT INTERNAL 15 MED MINUTES HOSPITAL RENEE - 7 7 [facility] OUTPATIEN INC T OFFICE 77067 [facility] OUTPATIEN 7 7 VALLEY T VISIT INTERNAL 15 MED MINUTES OFFICE 18348 [facility] OUTPATIEN 7 7 VALLEY T VISIT INTERNAL 25 MED MINUTES HOSPITAL R[facility] - 6 6 [facility] INPATIENT INC OFFICE 56574 [place] OUTPATIEN 6 6 MEDICAL JAM T VISIT SERV 15 FOUNDATIO MINUTES [facility] RENEE - OTHER 6 6 [facility] INC OFFICE 46669 [place] OUTPATIEN 6 6 MEDICAL JAM T VISIT SERV 15 FOUNDATIO MINUTES [facility] RENEE - 6 6 [facility] OUTPATIEN [facility] RENEE - 6 6 [facility] OUTPATIEN INC T OFFICE 93170 [facility] CHELE TOD OUTPATIEN 6 6 PHYSICIAN T VISIT S GROUP 10 MINUTES OFFICE 75009 [facility] CHELE TOD OUTPATIEN 6 6 PHYSICIAN T VISIT S GROUP 10 MINUTES OFFICE 88819 [place] [facility] OUTPATIEN 5 5 VALLEY MODESTO T VISIT INTERNAL 15 MED MINUTES OFFICE 50011 [place] OUTPATIEN 5 5 MEDICAL JAM T VISIT SERV 25 FOUNDATIO MINUTES N OFFICE 54192 [facility] [facility] OUTPATIEN 5 5 VALLEY MODESTO T VISIT INTERNAL 15 MED MINUTES HOSPITAL R[facility]EE - 5 5 [facility] OUTPATIEN INC T OFFICE 19446 [place] OUTPATIEN 5 5 MEDICAL JAM T VISIT SERV 25 FOUNDATIO MINUTES [facility] RENEE - 4 4 [facility] OUTPATIEN INC T OFFICE 31833 [place] S[facility] OUTPATIEN 4 4 VALLEY ZACKARY T VISIT INTERNAL 15 MED MINUTES HOSPITAL RENEE - 4 4 [facility] INPATIENT INC OFFICE 47112 [facility] [facility] OUTPATIEN 4 4 [facility] T VISIT INTERNAL 15 MED MINUTES OFFICE 98806 [facility] KELSEY OUTPATIEN 4 4 JAM JAM T VISIT 15 MINUTES OFFICE 58969 [facility] [facility] OUTPATIEN 4 4 [facility] T VISIT INTERNAL 15 MED MINUTES HOSPITAL RENEE - 4 4 [facility] OUTPATIEN INC T HOSPITAL RENEE - 4 4 [facility] OUTPATIEN INC T OFFICE 19768 [facility] KELSEY OUTPATIEN 4 4 JAM JAM T VISIT 25 MINUTES OFFICE 84190 [facility] KELSEY OUTPATIEN 4 4 JAM JAM T VISIT 25 MINUTES HOSPITAL RENEE - 4 4 [facility] OUTPATIEN INC T OFFICE 16783 [facility] KELSEY OUTPATIEN 3 3 JAM JAM T VISIT 25 MINUTES HOSPITAL RENEE - 3 3 [facility] OUTPATIEN INC T OFFICE 00726 [facility] KELSEY CONSULTAT 3 3 JAM JAM ION NEW/ESTAB PATIENT 80 MIN HOSPITAL RENEE - 3 3 [facility] OUTPATIEN INC T OFFICE 43336 M[facility] MCKEMIE OUTPATIEN 3 3 JR JAVED JR TEGAN T VISIT 15 MINUTES OFFICE 23345 [facility] MCKEMIE OUTPATIEN 3 3 JR TEGAN JR TEGAN T VISIT 15 MINUTES HOSPITAL RENEE - 3 3 [facility] OUTPATIEN INC T OFFICE 88579 [facility] MCKEMIE OUTPATIEN 3 3 JR TEGAN JR TEGAN T VISIT 15 MINUTES Emergency HOLLAND Green MD (ER) 3 11:35 3 14:17 [facility] RENEE - 3 3 MEM [facility] OUTPATIEN [facility] EMERGENCY 38839 MELISA HARMON DEPT 3 3 EMERGENCY VISIT SERVICES HIGH SEVERITY& THREAT FUNJ EMERGENCY 53214 R[facility] 3 3 [facility]NOTE 3] VISIT HIGH/URGE NT SEVERITY HOSPITAL RENEE - 3 3 [facility] - 3 3 [facility] 3 3 [facility] 3 3 [facility] 83499 [facility] 3 3 [facility] VISIT 15 MINUTES EMERGENCY 18573 ALONDRA CANTU DEPT 3 3 III TEGAN III TEGAN VISIT HIGH SEVERITY& THREAT FUNJ
--- OUTSIDE RECORDS SUMMARY | 2016-11-09 12:36 | External Medical Summary Rpt ---
Author Author , RUFINO JOY Address Unknown Phone [email or web address] Media Care Team Providers Care Tilt Wall Supervisor Name Role Phone JONAH MCKENZIE Unavailable [...] Unavailable SURESH ZACKARY, Unavailable Unavailable SURESH ZACKARY [facility] Unavailable Unavailable CENTER, [facility] Unavailable Unavailable CENTER, [facility] Unavailable Unavailable INC, [facility] Unavailable Unavailable HOSPITAL P, [facility], Unavailable Unavailable [facility] Unavailable Unavailable IMAGING ASS, [facility] Sarah Green MD, Unavailable Unavailable Sarah [facility] Unavailable Unavailable INTERNAL MED, [facility] INTERNAL MED KELSEY, KELSEY Unavailable [...] FANCIERS SERV LUNG [facility] J8410 PULMONARY 09-08-2016 [facility] UNSPECIFIED [facility]ATION N26671 OTH SPEC 09-08-2016 [place] D/O BONE MEDICAL DENSITY IMAGING ASS STRUCTURE RT THIGH R0609 OTHER FORMS 09-08-2016 [facility] DYSPNEA SERV [facility] Z780 ASYMPTOMATI 09-08-2016 [place] C MEDICAL MENOPAUSAL IMAGING ASS STATE I7300 [...] [facility] I10 ESSENTIAL 05-13-2016 [facility] HYPERTENSIO INC N J984 OTHER 04-01-2016 [facility] DISORDERS [facility] OF LUNG INTERNAL MED R05 COUGH 03-19-2016 [facility] J679 HYPERSENSIT 09-25-2015 [facility] PNEUMONIT INC D/T UNS ORGANIC DUST R918 OTHER 09-25-2015 [place] NONSPECIFIC MEDICAL ABNORMAL IMAGING ASS FINDING OF LUNG FIELD R0989 OTH SPEC SX 09-17-2015 [place] & SIGNS MEDICAL INVLV THE IMAGING ASS CIRC & RESP SYS R509 FEVER 09-17-2015 [place] UNSPECIFIED MEDICAL IMAGING ASS X17946 UNSPECIFIED 09-16-2015 [facility] ASTHMA [facility] UNCOMPLICAT [facility]OUNDATION ED A048 OTHER 05-20-2015 [facility] SPECIFIED PHYSICIANS BACTERIAL GROUP INTESTINAL INFECTIONS 07880 EXTRINSIC 06-13-2014 [facility]MA, SERV UNSPECIFIED FOUNDATION 4959 UNSPECIFIED 06-13-2014 [facility] ALLERGIC [facility] ALVEOLITIS FOUNDATION AND PNEUMONITIS 515 POSTINFLAMM 06-13-2014 [facility] AT[facility] PULMONARY [facility] FIBROSIS 7109 UNSPECIFIED 06-13-2014 [facility] DIFFUSE [facility] CONNECTIVE [facility] TISSUE DISEASE 2768 HYPOPOTASSE 05-23-2014 [facility] ISHA [facility] INTERNAL MED 2859 UNSPECIFIED 05-23-2014 [facility] ANEMIA [facility] INTERNAL MED 486 PNEUMONIA, 05-23-2014 [facility] ORGANISM VALLEY UNSPECIFIED INTERNAL MED 2830 AUTOIMMUNE 04-30-2014 [facility]EMOLYTIC [facility] ANEMIAS INC 4830 PNEUMONIA 04-11-2014 [facility] DUE TO SERV MYCOPLASMA [facility]OUNDATION PNEUMONIAE 44430 DEHYDRATION 03-16-2014 [facility] INC 496 CHRONIC 03-16-2014 [facility] 86054 OTHER 03-16-2014 [place] DISEASES OF MEDICAL LUNG NOT IMAGING ASS ELSEWHERE CLASSIFIED 79718 FEVER 03-16-2014 [facility] UNSPECIFIED VALLEY INTERNAL MED 17648 OTHER 03-16-2014 [place] NONSPECIFIC MEDICAL ABNORMAL IMAGING ASS FINDING OF LUNG FIELD V1254 PERSONAL HX 03-16-2014 [facility] TIA & CI [facility] W/O INC RESIDUAL DEFICITS V141 PERSONAL 03-16-2014 [facility] HISTORY [facility] ALLERGY INC OTHER ANTIBIOTIC AGENT 485 BRONCHOPNEU 02-05-2014 [facility] MONIA [facility] ORGANISM INTERNAL UNSPECIFIED MED 4918 OTHER 11-29-2013 [facility] CHRONIC JAM BRONCHITIS 5168 OTH SPEC 11-13-2013 [facility] ALVEOL&IZABELA VALLEY ETOALVEOL INTERNAL PNEUMONOPAT MED HIES 64660 UNSPECIFIED 11-13-2013 [facility] ARTHROPATHY INTERNAL MULTIPLE MED SITES 16381 EXTRINSIC 09-20-2013 [facility] ASTHMA, JAM WITH EXACERBATIO N 30690 LOSS OF 05-31-2013 [facility] WEIGHT JAM 4952 BIRD-FANCIE 03-01-2013 [facility] RS LUNG JAM 6954 LUPUS 03-01-2013 [facility] ERYTHEMATOS JAM 99677 PECTUS 03-01-2013 [facility] EXCAVATUM JAM 17083 ACUTE 02-08-2013 [facility] BRONCHIOLIT [facility] IS DUE OTH INC INFECTIOUS ORGANISMS 20852 SHORTNESS 01-25-2013 [facility] OF BREATH JAM 7862 COUGH 01-25-2013 [facility] 00341 UNSPECIFIED 12-19-2012 [facility] RESPIRATORY ABNORMALITY 786.09 786.09 10-16-2012 [place] RESPIRATORY [facility] 24792 OTHER 10-16-2012 [facility] DYSPNEA AND TEGAN RESPIRATORY ABNORMALITI ES V12.61 V12.61 10-16-2012 [facility] PNEUMONIA (RECURRENT) V1261 PERSONAL 10-16-2012 [facility] HISTORY TEGAN PNEUMONIA RECURRENT V14.8 V14.8 10-16-2012 [facility] HX-DRUG [facility] ALLERGY [facility] V148 PERSONAL 10-16-2012 [facility] HISTORY TEGAN ALLERGY OTH SPEC MEDICINAL AGTS V58.64 V58.64 10-16-2012 [facility] LONG-TERM([facility])USE Hospital OF NON-STEROID AL ANTI-INFLAM MATORIES V5864 LONG-TERM 10-16-[address] [facility] NON-STEROID AL ANTI-INFLAM MATORIES 04911 NUCLEAR 08-16-2012 [facility] SCLEROSIS SHIVAM 3669 UNSPECIFIED 08-16-2012 [facility] CATARACT [facility] 3688 OTHER 07-19-2012 [facility] SPECIFIED SHIVAM VISUAL DISTURBANCE S 2410 NONTOXIC 05-02-2012 [facility] UNINODULAR [facility] GOITER INC 2409 GOITER, 04-18-2012 [facility] UNSPECIFIED JUAN RAMON 481 PNEUMOCOCCA 04-18-2012 [facility] L PNEUMONIA [facility] INC 5183 PULMONARY 04-14-2012 [facility] EOSINOPHILI JUAN RAMON A V069 NEED PROPH 04-14-2012 [facility] [place] VACCINATION HEALTH W/UNSPEC CENTER COMB VACCINE I10 [...] DOS Code Location Performer Comment DXA BONE 2[address] [place] [address] MEDICAL STUDY 1/> IMAGING SITES ASS AXIAL SKEL PCV13 [address] [place] [address] FOR INTERNAL INTRAMUSC MED ULAR USE IM ADM [address]35 [facility] SURESH PRQ ID 7 VALLEY SUBQ/IM INTERNAL NJXS 1 MED VACCINE ANNUAL G0439 [facility] SURESH WELLNESS 7 VALLEY VST; INTERNAL PERSONALI MED ZED PPS SUBSQT VST COLLECTIO 26037 [facility] D[facility]AN N VENOUS 7 MEM HOS[facility] BLOOD INC INC VENIPUNCT URE LIPID 84337 [facility] PANEL 7 MEM HOSP [facility] INC INC GENERAL 29128 [facility] DURAN [facility] 7 MEM [facility]OS[facility] PANEL INC INC RADIOLOGI 51899 [facility] C EXAM 6 MEDICAL CHEST 2 IMAGING VIEWS ASS FRONTAL&L ATERAL IIV 76013 [facility] VACCINE 6 PHARMACY PHARMACY PRESERV #591 #591 FREE INCREASED AG CONTENT IM ADMINISTR G0008 [facility] ATION OF 6 PHARMACY PHARMACY INFLUENZA #591 #591 VIRUS VACCINE ANTIBODY 68395 [facility] D[facility]AN ASPERGILL 6 [facility] US INC INC COLLECTIO 32334 [facility] D[facility] N VENOUS 6 MEM [facility] BLOOD INC INC VENIPUNCT URE CT THORAX 74107 [place] NOBLE ALL W/O 6 MEDICAL CONTRAST IMAGING MATERIAL ASS ALLERGEN 18138 [facility] D[facility] SPECIFIC 6 [facility] IGG INC INC EVELYN/SEMI EVELYN EA ALLERGEN IMMUNODIF 21754 [facility] FUSION 6 [facility] GEL INC INC DIFFUSION QUAL EA AG/ANTBDY RADIOLOGI 39774 [facility] D[facility]AN C EXAM 6 [facility] CHEST 2 INC INC VIEWS FRONTAL&L ATERAL SPMTRY 26454 EFE KELSEY W/VC 6 MEDICAL JAM EXPIRATOR SERV Y LESLYE FOUNDATIO W/WO MXML N VOL VNTJ BRNCDILAT 53041 [facility] RSPSE 6 MEM HOSP [facility]OS[facility] SPMTRY INC INC PRE&POST- BRNCDILAT ADMN PRESSURIZ 92755 [facility] D[facility] ED/NONPRE 6 MEM HOS[facility] SSURIZED INC INC INHALATIO N TREATMENT NONINVASI 70679 [facility] DURAN VE 6 [facility] EAR/PULSE INC INC OXIMETRY MULTIPLE DETER PULMONARY 63066 EFE [facility] STRESS 6 MEDICAL JAM TESTING SERV SIMPLE FOUNDATIO N GAS 39642 EFE K[facility] DILUT/WAS 6 MEDICAL JAM HOUT LUNG SERV VOL W/WO [place]OUND[place]RI[place] [address] EFE K[facility] DIFFUSING 6 MEDICAL JAM CAPACITY SERV FOUNDATIO N THERAPEUT 79462 [facility] BESSON IC 5 [facility] PROPHYLAC INTERNAL TIC/DX MED INJECTION SUBQ/IM INJECTION J0696 [facility] 5 [facility] CEFTRIAXO INTERNAL INTERNAL NE SODIUM MED MED PER 250 MG IAADIADOO 49338 [facility] BESSON 5 [facility] INFLUENZA INTERNAL MED ANTIBODY 89078 [facility] DURAN IDENTIFIC 5 [facility] ATION INC INC LEUKOCYTE ANTIBODIE S ANTIHUMAN 10629 [facility] D[facility]AN GLOBULIN 5 [facility] DIRECT INC INC EACH ANTISERUM BLOOD 00104 [facility] DUR[facility] COUNT 5 [facility] COMPLETE INC INC AUTO&AUTO DIFRNTL WBC ANTINUCLE 45879 [facility] D[facility] AR 5 [facility] ANTIBODIE INC INC S HERBER BASIC 25446 [facility] D[facility] METABOLIC 5 [facility] PANEL INC INC CALCIUM TOTAL COLLECTIO 65242 [facility] DURAN N VENOUS 5 [facility] BLOOD INC INC VENIPUNCT URE COMPREHEN 36770 [facility] DURAN SIVE 4 [facility] METABOLIC INC INC PANEL BLOOD 99584 R[facility] DURAN COUNT 4 [facility] COMPLETE INC INC AUTO&AUTO DIFRNTL WBC HOSPITAL 94313 [place] [facility] 4 [facility] DAY INTERNAL MANAGEMEN MED T 30 MIN/< SBSQ [address] CARE/DAY INTERNAL 35 MED MINUTES SBSQ [address] [place] [facility] 4 [facility] CARE/DAY INTERNAL 35 MED MINUTES INITIAL [address] CARE/DAY INTERNAL 50 MED MINUTES ECG 30941 [facility] COULTER ROUTINE 4 [facility] W/LEAST P 12 LDS I&R ONLY RADIOLOGI 64241 AMPARO REYEZ C EXAM 4 MEDICAL JUAN RAMON CHEST 2 IMAGING VIEWS ASS FRONTAL&L ATERAL IAADIADOO 04106 [facility] SERAFINSON 4 [facility] INFLUENZA INTERNAL MED INJECTION J0696 [facility] BESSON 4 [facility] CEFTRIAXO INTERNAL NE SODIUM MED PER 250 MG INJECTION J3301 [place] BESSON 4 [facility] TRIAMCINO INTERNAL LONE MED ACETONIDE NOS 10 MG THERAPEUT 32869 [facility] MARYLIN IC 4 [facility] PROPHYLAC INTERNAL TIC/DX MED INJECTION SUBQ/IM COMPREHEN 77864 [facility] DURAN SIVE 4 [facility] METABOLIC INC INC PANEL CT THORAX 65866 AMPARO REYEZ W/O 4 MEDICAL JUAN RAMON CONTRAST IMAGING MATERIAL ASS NONINVASI 21771 [facility] DURAN VE 4 [facility] EAR/PULSE INC INC OXIMETRY SINGLE DETER BRNCDILAT 04767 [facility] D[facility]AN RSPSE 4 [facility] SPMTRY INC INC PRE&[place] [address] [facility] DIFFUSING 4 [facility] CAPACITY INC INC GAS 66131 [facility] D[facility] DILUT/WAS 4 [facility] HOUT LUNG INC INC VOL W/WO DISTRIB VENT&V CT THORAX 45559 [facility] D[facility] W/O 3 [facility] [address] [facility] D[facility] GAMMAGLOB 3 [facility] ULIN IGA INC INC IGD IGG IGM EACH COMPREHEN 48380 [facility] SIVE 3 [facility] [place] [address] R[facility] DURAN GAMMAGLOB 3 [facility] ULIN IGE INC INC ANTIBODY 00460 [facility] D[facility]AN ASPERGILL 3 [facility] US INC INC BLOOD 48238 R[facility] DURAN COUNT 3 [facility] COMPLETE INC INC AUTO&AUTO DIFRNTL WBC ANTINUCLE 72347 [facility] DURAN AR 3 [facility] ANTIBODIE INC INC S HERBER ALLERGEN 93740 [facility] D[facility] SPECIFIC 3 [facility] IGG INC INC EVELYN/SEMI EVELYN EA ALLERGEN SEDIMENTA 19103 [facility] DURAN TIMATTHEW RATE 3 [facility] RBC INC INC NON-AUTOM ATED IMMUNODIF 79779 [facility] DURAN FUSION 3 [facility] GEL INC INC DIFFUSION QUAL EA AG/ANTBDY GAS 01603 [facility] D[facility]AN DILUT/WAS 3 [facility] HOUT LUNG INC INC VOL W/WO DISTRIB VENT&V BRNCDILAT 89580 R[facility] DURAN RSPSE 3 [facility] SPMTRY INC INC PRE&POST- BRNCDILAT ADMN ECHO 26338 [facility] DURAN TTHRC R-T 3 [facility] 2D INC INC W/WOM-MOD E COMPL SPEC&COLR D ECG 51645 MELISA HARMON ROUTINE 3 EMERGENCY ECG SERVICES W/LEAST 12 LDS I&R ONLY RADIOLOGI 52704 [facility] D[facility]AN C EXAM 3 [facility] CHEST 2 INC INC VIEWS FRONTAL&L ATERAL PRESSURIZ 10541 [facility] DURAN ED/NONPRE 3 [facility] SSURIZED INC INC INHALATIO N TREATMENT ECG 97285 [facility] DURAN ROUTINE 3 [facility] ECG INC INC W/LEAST 12 LDS TRCG ONLY W/O I&R BLOOD 17251 [facility] DURAN COUNT 3 [facility] COMPLETE INC INC AUTO&AUTO DIFRNTL WBC FIBRIN 00437 [facility] D[facility] DGRADJ 3 [facility] PRODUCTS INC INC D-DIMER QUAL/SEMI EVELYN POSTERIOR V2632 R[facility] RENEE CHAMBER 3 [facility] INTRAOCUL INC INC AR LENS CATARACT 88796 R[facility] DURAN REMOVAL 3 [facility] INSERTION INC INC OF LENS OPH BMTRY 90062 [facility] [place] US 3 SHIVAM SHIVAM ECHOGRAPY A-SCAN IO LENS PWR ANTIONETTE OPHTH 59472 [facility] 3 SHIVAM SHIVAM XM&EVAL COMPRE NEW PT 1/> VST IODINE A9516 [facility] DURAN I-123 3 [facility] SODIUM INC INC IODIDE DX PER 100 UCI TO 999 THYROID 51208 [facility] DUR[facility] UPTAKE 3 [facility] W/BLOOD INC INC FLOW SNGLE/MUL T EVELYN MIC RADIOLOGI 66469 [facility] RENEE C EXAM 3 [facility] CHEST 2 INC INC VIEWS FRONTAL&L ATERAL US SOFT 92036 [facility] DURAN TISSUE 3 [facility] HEAD & INC [place] [address] R[facility] DURAN FREE 3 [facility] THYROXINE INC INC GENERAL 26913 R[facility] DURAN HEALTH 3 [facility] PANEL INC INC RADIOLOGI 60528 R[facility] DURAN C EXAM 3 [facility] CHEST 2 INC INC VIEWS FRONTAL&L ATERAL IIV3 03623 [facility] DURAN VACCINE 3 [facility] CENTER VIRUS 0.5 ML DOSAGE IM USE PPSV23 72027 R[facility] DURAN VACCINE 2 3 [facility] YRS OR CENTER CENTER OLDER FOR SUBQ/IM USE HOSPITAL 98683 [facility] DISCHAR[facility] 3 [facility] DAY MANAGEMEN T 30 MIN/< SBSQ 12393 [facility] 3 [facility] MODE[facility] CARE/DAY 25 MINUTES RADIOLOGI 02935 DEREJE DEREJE Pierre 3 JUAN RAMON JUAN RAMON EXAMINATI ON CHEST SINGLE VIEW FRONTAL INITIAL 00397 [facility] 3 JR TEGAN JR TEGAN CARE/DAY 50 MINUTES Encounters Encounter Start End Date Code Location Performer Type Date OFFICE 02346 [facility] OUTPATIEN 7 7 MEDICAL T VISIT SERV 25 FOUNDATIO MINUTES N OFFICE 27014 [facility] S[facility] OUTPATILALY 7 7 [facility] T VISIT INTERNAL 15 MED MINUTES HOSPITAL RENEE - 7 7 [facility] OUTPATIEN INC T OFFICE 97680 [facility] B[facility]ON OUTPATIEN 7 7 VALLEY T VISIT INTERNAL 15 MED MINUTES OFFICE 57673 [facility] OUTPATIEN 7 7 VALLEY T VISIT INTERNAL 25 MED MINUTES HOSPITAL RENEE - 6 6 [facility] INPATIENT INC OFFICE 49636 [place] [facility] OUTPATIEN 6 6 MEDICAL JAM T VISIT SERV 15 FOUNDATIO MINUTES [facility] RENEE - OTHER 6 6 [facility] INC OFFICE 18415 [place] OUTPATIEN 6 6 MEDICAL JAM T VISIT SERV 15 FOUNDATIO MINUTES [facility] RENEE - 6 6 [facility] OUTPATIEN [facility] RENEE - 6 6 [facility] OUTPATIEN INC T OFFICE 22124 [facility] CHELE TOD OUTPATIEN 6 6 PHYSICIAN T VISIT S GROUP 10 MINUTES OFFICE 82383 [facility] CHE[facility] TOD OUTPATIEN 6 6 PHYSICIAN T VISIT S GROUP 10 MINUTES OFFICE 95043 [facility] [facility] OUTPATIEN 5 5 VALLEY MODESTO T VISIT INTERNAL 15 MED MINUTES OFFICE 89151 [place] OUTPATIEN 5 5 MEDICAL JAM T VISIT SERV 25 FOUNDATIO MINUTES N OFFICE 59187 [facility] OUTPATIEN 5 5 VALLEY MODESTO T VISIT INTERNAL 15 MED MINUTES HOSPITAL RENEE - 5 5 [facility] OUTPATIEN INC T OFFICE 87965 [place] [facility] OUTPATIEN 5 5 MEDICAL JAM T VISIT SERV 25 FOUNDATIO MINUTES [facility] RENEE - 4 4 [facility] OUTPATIEN INC T OFFICE 63873 [place] SURESH OUTPATIEN 4 4 VALLEY ZACKARY T VISIT INTERNAL 15 MED MINUTES HOSPITAL RENEE - 4 4 [facility] INPATIENT INC OFFICE 39993 [facility] BESSON OUTPATIEN 4 4 [facility] T VISIT INTERNAL 15 MED MINUTES OFFICE 70398 [facility] KELSEY OUTPATIEN 4 4 JAM JAM T VISIT 15 MINUTES OFFICE 96991 [facility] BESSON OUTPATIEN 4 4 [facility] T VISIT INTERNAL 15 MED MINUTES HOSPITAL RENEE - 4 4 [facility] OUTPATIEN INC T HOSPITAL RENEE - 4 4 [facility] OUTPATIEN INC T OFFICE 72840 [facility] KELSEY OUTPATIEN 4 4 JAM JAM T VISIT 25 MINUTES OFFICE 69150 [facility] KELSEY OUTPATIEN 4 4 JAM JAM T VISIT 25 MINUTES HOSPITAL RENEE - 4 4 [facility] OUTPATIEN INC T OFFICE 88699 [facility] KELSEY OUTPATIEN 3 3 JAM JAM T VISIT 25 MINUTES HOSPITAL RENEE - 3 3 [facility] OUTPATIEN INC T OFFICE 44299 [facility] KELSEY CONSULTAT 3 3 JAM JAM ION NEW/ESTAB PATIENT 80 MIN HOSPITAL RENEE - 3 3 [facility] OUTPATIEN INC T OFFICE 09687 [facility] OUTPATIEN 3 3 JR JAVED JR TEGAN T VISIT 15 MINUTES OFFICE 87326 [facility] OUTPATIEN 3 3 JR TEGAN JR TEGAN T VISIT 15 MINUTES HOSPITAL RENEE - 3 3 [facility] OUTPATIEN INC T OFFICE 91001 [facility] M[facility] OUTPATIEN 3 3 JR TEGAN JR TEGAN T VISIT 15 MINUTES Emergency HOLLAND Green MD (ER) 3 11:35 3 14:17 [facility] RENEE - 3 3 [facility] OUTPATIEN [facility] EMERGENCY 30512 MELISA HARMON DEPT 3 3 EMERGENCY VISIT SERVICES HIGH SEVERITY& THREAT FUNJ EMERGENCY 66718 R[facility]EE 3 3 [facility] VISIT HIGH/URGE NT SEVERITY HOSPITAL RENEE - 3 3 [facility] RENEE - 3 3 [facility] RENEE [facility] 3 3 [facility] RENEE - 3 3 [facility] OFF[facility] 59441 [facility]ENCE [facility] 3 3 [facility] VISIT 15 MINUTES EMERGENCY 98508 ALONDRA CANTU DEPT 3 3 III TEGAN III TEGAN VISIT HIGH SEVERITY& THREAT FUNJ
--- OUTSIDE RECORDS SUMMARY | 2016-11-09 12:38 | External Medical Summary Rpt ---
Author Author , RUFINO JOY Address Unknown Phone [email or web address] Care Team Providers Care Zinc Skimmer Name Role Phone JONAH, JONAH Unavailable Unavailable [...] Unavailable SURESH ZACKARY, Unavailable Unavailable SURESH ZACKARY [facility] Unavailable Unavailable CENTER, [facility]available Unavailable [facility]ENTER, [facility] Unavailable Unavailable INC, [facility] Unavailable Unavailable HOSPITAL P, [facility], [facility]available Unavailable [facility] Unavailable Unavailable IM[facility], [facility] Unavailable Unavailable INTERNAL MED, [facility] INTER[facility] MED KELSEY, KELSEY Unavailable Unavailable [...] 09-08-2016 [facility] F[facility] UNSPECIFIED F[facility]ATION [id number] OTH SPEC 09-08-2016 [facility] D/O BONE MEDICAL DENSITY IMAGING ASS STRUCTURE RT THIGH R0609 OTHER FORMS 09-08-2016 [facility] OF DYSPNEA SERV [facility] Z780 ASYMPTOMATI 09-08-2016 [facility] C [facility]ICAL MENOPAUSAL IMAGING ASS STATE I7300 [...] INC N J984 OTHER 04-01-2016 [facility] DISORDERS MIMS OF LUNG INTERNAL MED R05 COUGH 03-19-2016 [facility] J679 HYPERSENSIT 09-25-2015 [facility] PNEUMONIT INC D/T UNS ORGANIC DUST R918 OTHER 09-25-2015 [facility] NONSPECIFIC MEDICAL ABNORMAL IMAGING ASS FINDING OF LUNG FIELD R0989 OTH SPEC SX 09-17-2015 [facility] & SIGNS MEDICAL INVLV THE IMAGING ASS CIRC & RESP SYS R509 FEVER 09-17-2015 [facility] UNSPECIFIED [facility]ICAL IMAGING ASS Q44226 UNSPECIFIED 09-16-2015 [facility] ASTHMA [facility] UNCOMPLICAT [facility]OUNDATION ED A048 OTHER 05-20-2015 [place] INTESTINAL INFECTIONS 67204 EXTRINSIC 06-13-2014 [facility], SERV UNSPECIFIED FOUNDATION 4959 UNSPECIFIED 06-13-2014 [facility] ALLERGIC SERV ALVEOLITIS FOUNDATION AND PNEUMONITIS 515 POSTINFLAMM 06-13-2014 [facility] AT[facility] PULMONARY [facility] FIBROSIS 7109 UNSPECIFIED 06-13-2014 [facility] DIFFUSE SERV CONNECTIVE [facility] TISSUE DISEASE 2768 HYPOPOTASSE 05-23-2014 [facility] ISHA MIMS INTERNAL MED 2859 UNSPECIFIED 05-23-2014 [facility] ANEMIA MIMS INTERNAL MED 486 PNEUMONIA, 05-23-2014 [facility] ORGANISM MIMS UNSPECIFIED INTERNAL MED 2830 AUTOIMMUNE 04-30-2014 [facility] ANEMIAS INC 4830 PNEUMONIA 04-11-2014 [facility] DUE TO SERV MYCOPLASMA [facility] PNEUMONIAE 84878 DEHYDRATION 03-16-2014 [facility] INC 496 CHRONIC 03-16-2014 [facility] P NEC 30726 OTHER 03-16-2014 [facility] DISEASES OF MEDICAL LUNG NOT IMAGING ASS ELSEWHERE CLASSIFIED 86425 FEVER 03-16-2014 [facility] UNSPECIFIED VALLEY INTERNAL MED 37395 OTHER 03-16-2014 [facility] NONSPECIFIC MEDICAL ABNORMAL IMAGING ASS FINDING OF [...] ALVEOL&IZABELA VALLEY ETOALVEOL INTERNAL PNEUMONOPAT MED HIES 72911 UNSPECIFIED 11-13-2013 [facility] ARTHROPATHY INTERNAL MULTIPLE MED SITES 47448 EXTRINSIC 09-20-2013 [facility] ASTHMA, [place]ACERBATIO N 13804 LOSS OF 05-31-2013 [facility] WEIGHT JAM 4952 BIRD-FANCIE 03-01-2013 [facility] RS LUNG JAM 6954 LUPUS 03-01-[place] [address] PECTUS 03-01-2013 [facility] EXCAVATUM JAM 78227 ACUTE 02-08-2013 [facility] DUE OTH INC INFECTIOUS ORGANISMS 50328 SHORTNESS 01-25-2013 [facility] OF BREATH JAM 7862 COUGH 01-25-2013 [facility] 10569 UNSPECIFIED 12-19-2012 [facility] RESPIRATORY ABNORMALITY 41828 OTHER 10-16-2012 [facility] DYSPNEA AND TEGAN RESPIRATORY ABNORMALITI ES V1261 PERSONAL 10-16-2012 [facility] HISTORY TEGAN PNEUMONIA RECURRENT V148 PERSONAL 10-16-2012 [facility] HISTORY TEGAN ALLERGY OTH SPEC MEDICINAL AGTS V5864 LONG-TERM 10-16-2012 [facility] USE TEGAN NON-STEROID AL ANTI-INFLAM MATORIES 99784 NUCLEAR 08-16-2012 [facility] SCLEROSIS SHIVAM 3669 UNSPECIFIED 08-16-2012 [facility]ACT [facility] 3688 OTHER 07-19-2012 [facility] SPECIFIED SHIVAM VISUAL DISTURBANCE S 2410 NONTOXIC 05-02-2012 [facility]INODULAR [facility] GOITER INC 2409 GOITER, 04-18-2012 [facility] UNSPECIFIED JUAN RAMON 481 PNEUMOCOCCA 04-18-2012 [facility] PNEUMONIA [facility] 5183 PULMONARY 04-14-2012 [facility] EOSINOPHILI JUAN RAMON A V069 NEED PROPH 04-14-2012 [facility] W/UNSPEC CENTER COMB VACCINE Immunization [...] DOS Code Location Performer Comment DXA BONE 61638 [facility] [place] [address] MEDICAL STUDY 1/> IMAGING SITES ASS AXIAL SKEL IM ADM 13596 [facility] SURESH PRQ ID 7 VAL[facility] SUBQ/IM INTERNAL NJXS 1 MED VACCINE ANNUAL G0439 [facility] S[facility] WELLNESS 7 VALLEY VST; INTERNAL PERSONALI MED ZED PPS SUBSQT VST PCV13 43613 [facility] VACCINE 7 VALLEY FOR INTERNAL INTRAMUSC MED ULAR USE GENERAL 94778 [facility] PANEL INC INC COLLECTIO 82316 [facility] N VENOUS 7 [facility] BLOOD INC INC VENIPUNCT URE LIPID 44003 [facility] PANEL 7 [facility] INC INC RADIOLOGI 03030 [facility] C EXAM 6 MEDICAL CHEST 2 IMAGING VIEWS ASS FRONTAL&L ATERAL IIV 30919 [facility] VACCINE 6 PHARMACY PHARMACY PRESERV #591 #591 FREE INCREASED AG CONTENT IM ADMINISTR G0008 [facility] ATION OF PHARMACY PHARMACY INFLUENZA #591 #591 VIRUS VACCINE IMMUNODIF 91196 [facility] FUSION 6 [facility] GEL INC INC DIFFUSION QUAL EA AG/ANTBDY ANTIBODY 98101 [facility] DURAN ASPERGILL 6 [facility] US INC INC CT THORAX 55437 [facility] ALL W/O 6 MEDICAL CONTRAST IMAGING MATERIAL ASS COLLECTIO 85866 [facility] N VENOUS 6 [facility] BLOOD INC INC VENIPUNCT URE ALLERGEN 09858 RENEEMATTHEW FRYEON SPECIFIC 6 [facility] IGG INC INC EVELYN/SEMI EVELYN EA ALLERGEN RADIOLOGI 00133 [facility] C EXAM 6 [facility] CHEST 2 INC INC VIEWS FRONTAL&L ATERAL SPMTRY 49940 [facility] W/VC 6 MEDICAL JAM EXPIRATOR SERV Y LESLYE FOUNDATIO W/[place] [address] E[facility] DIFFUSING 6 MEDICAL JAM CAPACITY SERV FOUNDATIO N NONINVASI 80614 [facility] VE 6 [facility] EAR/PULSE INC INC OXIMETRY MULTIPLE DETER GAS 97846 [place] [facility] DILUT/WAS 6 MEDICAL JAM HOUT LUNG SERV VOL W/WO FOUNDATIO DISTRIB N VENT&V PULMONARY 40982 [place] [facility] STRESS 6 MEDICAL JAM TESTING SERV SIMPLE FOUNDATIO N BRNCDILAT 15026 [facility] RSPSE 6 [facility] SPMTRY INC INC PRE&POST- BRNCDILAT ADMN PRESSURIZ 64045 [facility] ED/NONPRE 6 [facility] SSURIZED INC INC INHALATIO N TREATMENT IAADIADOO 60272 [facility] BESSON 5 [facility] [place] INFLUENZA INTERNAL MED THERAPEUT 33115 [facility] IC 5 VAL[facility] [place]DE[place]O PROPHYLAC INTERNAL TIC/DX MED INJECTION SUBQ/IM INJECTION J0696 [facility] 5 [facility]LEY [facility]LEY CEFTRIAXO INTERNAL INTERNAL NE SODIUM MED MED PER 250 MG COLLECTIO 07664 [facility] N VENOUS 5 [facility] BLOOD INC INC VENIPUNCT URE ANTIBODY 73879 [facility] IDENTIFIC 5 [facility] ATION INC INC LEUKOCYTE ANTIBODIE S ANTIHUMAN 68884 [facility] GLOBULIN 5 [facility] DIRECT INC INC EACH ANTISERUM BASIC 97491 [facility] METABOLIC 5 [facility] PANEL INC INC CALCIUM TOTAL ANTINUCLE 28610 [facility] RENEE AR 5 [facility] ANTIBODIE INC INC S HERBER BLOOD 94515 [facility] D[facility] COUNT 5 [facility] COMPLETE INC INC AUTO&AUTO DIFRNTL WBC BLOOD 87429 [facility] COUNT 4 [facility] COMPLETE INC INC AUTO&AUTO DIFRNTL WBC COMPREHEN 34440 [facility] D[facility]AN SIVE 4 [facility] HOSP METABOLIC INC INC PANEL HOSPITAL 30813 [facility] DISCHARGE 4 [facility] INTERNAL MANAGEMEN MED T 30 MIN/< SBSQ [address] [place] [address] CARE/DAY INTERNAL 35 MED MINUTES SBSQ [address] [facility] [address] CARE/DAY INTERNAL 35 MED MINUTES RADIOLOGI 56389 [facility] C EXAM 4 MEDICAL JUAN RAMON CHEST 2 IMAGING VIEWS ASS FRONTAL&L ATERAL IAADIADOO [address] [place] [address] INFLUENZA INTERNAL MED INITIAL [address] [facility] [address] CARE/DAY INTERNAL 50 MED MINUTES ECG 34796 [facility] COULTER ROUTINE 4 [facility] W/LEAST P 12 LDS I&R ONLY INJECTION J0696 [facility] [address] CEFTRIAXO INTERNAL NE SODIUM MED PER 250 MG INJECTION J3301 [place] [address] TRIAMCINO INTERNAL LONE MED ACETONIDE NOS 10 MG THERAPEUT 97739 [facility] IC 4 [facility] PROPHYLAC INTERNAL TIC/DX MED INJECTION SUBQ/IM COMPREHEN 18028 [facility] SIVE 4 [facility] METABOLIC INC INC PANEL CT THORAX 03686 AMPARO REYEZ W/O 4 MEDICAL JUAN RAMON CONTRAST IMAGING MATERIAL ASS NONINVASI 46293 [facility] D[facility] VE 4 [facility] EAR/PULSE [place] [address] R[facility]EE DURAN DIFFUSING 4 [facility] CAPACITY INC INC GAS 59466 [facility] D[facility] DILUT/WAS 4 [facility] HOUT LUNG INC INC VOL W/WO DISTRIB VENT&V BRNCDILAT 63265 [facility] RSPSE 4 [facility] SPMTRY INC INC PRE&POST- BRNCDILAT ADMN CT THORAX 04708 [facility] W/O 3 [facility] CONTRAST INC INC MATERIAL ALLERGEN 19974 [facility] D[facility] SPECIFIC 3 [facility] IGG INC INC EVELYN/SEMI EVELYN EA ALLERGEN BLOOD 76892 [facility] D[facility] COUNT 3 [facility] COMPLETE INC INC AUTO&AUTO DIFRNTL WBC ANTIBODY 39070 [facility] ASPERGILL 3 [facility] US INC INC ANTINUCLE 21566 [facility] D[facility] AR 3 [facility] [place] [address] R[facility] D[facility] GAMMAGLOB 3 [facility] ULIN IGE INC INC COMPREHEN 46605 [facility] DURNA SIVE 3 [facility] METABOLIC INC INC PANEL SEDIMENTA 95833 [facility] TION RATE 3 [facility] RBC INC INC NON-AUTOM ATED IMMUNODIF 81499 [facility] FUSION 3 [facility] GEL INC INC DIFFUSION QUAL EA AG/[place] [address] R[facility] D[facility] GAMMAGLOB 3 [facility] ULIN IGA INC INC IGD IGG IGM EACH ECHO 31460 [facility] TTHRC R-T 3 [facility] 2D INC INC W/WOM-MOD E COMPL SPEC&COLR D BRNCDILAT 96282 [facility] RSPSE 3 [facility] SPMTRY INC INC PRE&POST- BRNCDILAT ADMN GAS 49806 [facility] DILUT/WAS 3 [facility] HOUT LUNG INC INC VOL W/WO DISTRIB VENT&V RADIOLOGI 63429 [facility] C EXAM 3 [facility] CHEST 2 INC INC VIEWS FRONTAL&L ATERAL FIBRIN 15402 [facility] DGRADJ 3 [facility]OS[facility] PRODUCTS INC INC D-DIMER QUAL/SEMI EVELYN BLOOD 12195 [facility] D[facility] COUNT 3 [facility] COMPLETE INC INC AUTO&AUTO DIFRNTL WBC PRESSURIZ 31497 [facility] ED/NONPRE 3 [facility] SSURIZED INC INC INHALATIO N TREATMENT ECG 23028 MELISA HARMON ROUTINE 3 EMERGENCY ECG SERVICES W/LEAST 12 LDS I&R ONLY ECG 23018 [facility] ROUTINE 3 [facility] ECG INC INC W/LEAST 12 LDS TRCG ONLY W/O I&R POSTERIOR V2632 [facility] CHAMBER 3 [facility] INTRAOCUL INC INC AR LENS CATARACT 24001 [facility] D[facility] REMOVAL 3 [facility] INSERTION INC INC OF LENS OPH BMTRY 15280 [facility] 3 SHIVAM SHIVAM ECHOGRAPY A-SCAN IO LENS PWR ANTIONETTE OPHTH 15394 [facility] MEDICAL 3 SHIVAM SHIVAM XM&EVAL COMPRE NEW PT 1/> VST IODINE A9516 [facility] I-123 3 [facility] SODIUM INC INC IODIDE DX PER 100 UCI TO 999 THYROID 71746 [facility] UPTAKE 3 [facility] W/BLOOD INC INC FLOW SNGLE/MUL T EVELYN MIC US SOFT 99083 [facility] TISSUE 3 [facility] HEAD & INC INC NECK REAL TIME IMGE DOCM RADIOLOGI 66712 RN[facility] D[facility]AN C EXAM 3 [facility] CHEST 2 INC INC VIEWS FRONTAL&L ATERAL RADIOLOGI 52558 [facility] C EXAM 3 [facility] CHEST 2 INC INC VIEWS FRONTAL&[place] [address] [facility] D[facility] FREE 3 [facility] THYROXINE INC INC GENERAL 47121 [facility] D[facility] 3 [facility] PANEL INC INC IIV3 73278 [facility] VACCINE 3 [facility] CENTER VIRUS 0.5 ML DOSAGE IM USE PPSV23 03997 [facility] VACCINE 2 3 [facility] Y[facility] OR CENTER CENTER OLDER FOR SUBQ/IM USE HOSPITAL 33[address] [facility] 3 [facility] [facility] DAY MANAGEMEN T 30 MIN/< SBSQ 30250 [facility] 3 [place] MODE[facility]O CARE/DAY 25 MINUTES RADIOLOGI 48975 DEREJE DEREJE C 3 JUAN RAMON JUAN RAMON EXAMINATI ON CHEST SINGLE VIEW FRONTAL INITIAL 58376 [facility] 3 JR TEGAN JR TEGAN CARE/DAY 50 MINUTES Encounters Encounter Start End Date Code Location Performer Type Date OFFICE 16110 [place] [facility] 7 7 MEDICAL T VISIT SERV 25 FOUNDATIO MINUTES N OFFICE 13638 [facility] OUTPATIEN 7 7 [facility] T VISIT INTERNAL 15 MED MINUTES [facility]OSPITAL [facility] - 7 7 [facility] OUTPATIEN INC T OFFICE 41886 [facility] BESSON OUTPATIEN 7 7 VALLEY T VISIT INTERNAL 15 MED MINUTES OFFICE 96225 [facility] OUTPATIEN 7 7 [facility] T VISIT INTERNAL 25 MED MINUTES HOSPITAL [facility] - 6 6 [facility] INPATIENT INC OFFICE 74983 [place] [facility] 6 6 MEDICAL JAM T VISIT SERV 15 FOUNDATIO MINUTES N OFFICE 44341 [place] [facility] 6 6 MEDICAL JAM T VISIT SERV 15 FOUNDATIO MINUTES HOSPITAL [facility] - OTHER 6 6 [facility] R[facility] - 6 6 [facility] OUTPATIEN INC HOSP[facility] - 6 6 [facility] OUTPATIEN INC T OFFICE 69839 [place] [facility] 6 6 PHYSICIAN T VISIT S GROUP 10 MINUTES OFFICE 13432 [place] [facility] 6 6 PHYSICIAN T VISIT S GROUP 10 MINUTES OFFICE 79275 [facility] OUTPATIEN 5 5 [facility] T VISIT INTERNAL 15 MED MINUTES OFFICE 68415 [place] [facility] 5 5 MEDICAL JAM T VISIT SERV 25 FOUNDATIO MINUTES N OFFICE 58832 [facility]ON OUTPATIEN 5 5 [facility] T VISIT INTERNAL 15 MED MINUTES HOSPITAL RENEE - 5 5 [facility] OUTPATIEN INC T OFFICE 76336 [place] [facility]PAT[facility] 5 5 MEDICAL JAM T VISIT SERV 25 FOUNDATIO MINUTES N OFFICE 48285 [facility] S[facility] OUTPATIEN 4 4 [facility] T VISIT INTERNAL 15 MED MINUTES HOSPITAL R[facility] - 4 4 [facility] OUTPATIEN INC HOSPITAL R[facility]EE - 4 4 [facility] INPATIENT INC OFFICE 63641 [facility]ON OUTPATIEN 4 4 [facility] T VISIT INTERNAL 15 MED MINUTES OFFICE 01859 [facility] OUTPATIEN 4 4 JAM JAM T VISIT 15 MINUTES OFFICE 91871 [facility] B[facility]ON OUTPATIEN 4 4 [facility] T VISIT INTERNAL 15 MED MINUTES HOSPITAL R[facility]EE - 4 4 [facility] OUTPATIEN INC [facility] R[facility] - 4 4 [facility] OUTPATIEN INC T OFFICE 51205 [facility]EL[facility]Y OUTPATIEN 4 4 JAM JAM T VISIT 25 MINUTES HOSPITAL R[facility]EE - 4 4 [facility] OUTPATIEN INC T OFFICE 48584 [facility] OUTPATIEN 4 4 YAZMIN ARCE T VISIT 25 MINUTES OFFICE 04556 [facility] OUTPATIEN 3 3 YAZMIN ARCE T VISIT 25 MINUTES HOSPITAL R[facility] - 3 3 [facility] OUTPATIEN INC T HOSPITAL R[facility]EE - 3 3 [facility] OUTPATIEN INC T OFFICE 93822 [facility] K[facility]Y CONSULTAT 3 3 YAZMIN ARCE ION NEW/ESTAB PATIENT 80 MIN OFFICE 11471 [facility] MCKEMIE OUTPATIEN 3 3 JR TEGAN JAVED T VISIT 15 MINUTES OFFICE 04823 [facility] MCKEMIE OUTPATIEN 3 3 JR TEGAN JAVED T VISIT 15 MINUTES HOSPITAL [facility]EE - 3 3 [facility] OUTPATIEN INC T OFFICE 75264 M[facility] MCKEMIE OUTPATIEN 3 3 JR TEGAN JAVED T VISIT 15 MINUTES HOSPITAL R[facility]EE - 3 3 [facility] OUTPATIEN INC T EMERGENCY 85041 MELISA HARMON DEPT 3 3 EMERGENCY VISIT SERVICES HIGH SEVERITY& THREAT FUN EMERGENCY 66878 [facility] 3 3 [facility] T VISIT HIGH/URGE NT SEVERITY HOSPITAL R[facility]EE - 3 3 [facility] OUTPATIEN INC T HOSPITAL R[facility]EE - 3 3 [facility] OUTPATIEN INC T HOSPITAL R[facility]EE - 3 3 [facility] OUTPATIEN INC T OFFICE 75771 [facility] PRINCE OUTPATIEN 3 3 ZACKARY RAYMUNDO T VISIT 15 MINUTES HOSPITAL RENEE - 3 3 [facility] OUTPATIEN INC T EMERGENCY 44116 ALONDRA CANTU DEPT 3 3 III TEGAN III TEGAN VISIT HIGH SEVERITY& THREAT FUNJ
--- OUTSIDE RECORDS SUMMARY | 2016-11-09 12:38 | External Medical Summary Rpt ---
Author Author , RUFINO JOY Address Unknown Phone [email or web address] Care Team Providers Care Supervisor Color Making Name Role Phone JONAH, JONAH Unavailable Unavailable [...] Unavailable SURESH ZACKARY, Unavailable Unavailable SURESH ZACKARY [facility] Unavailable Unavailable CENTER, [facility] Unavailable Unavailable CENTER, [facility] Unavailable Unavailable INC, [facility] Unavailable [facility]available HOSPITAL P, [facility], Unavailable Unavailable [facility] Unavailable Unavailable IMAG[facility], [facility] Unavailable Unavailable INTERNAL MED, [facility] INTERNAL MED KELSEY, KELSEY Unavailable [...] Diagnosis DOS Provider Status J189 PNEUMONIA 09-08-2016 [facility]IED SERV ORGANISM [facility] J219 ACUTE 09-08-2016 [facility] IS [facility] UNSPECIFIED J672 BIRD 09-08-2016 [facility] FANCIERS SERV LUNG [facility] J8410 PULMONARY 09-08-2016 [facility] FIBROSIS SERV UNSPECIFIED FOUNDATION [id number] OTH SPEC 09-08-2016 [facility] D/O BONE [facility] DENSITY [facility]ING ASS STRUCTURE RT THIGH R0609 OTHER FORMS 09-08-2016 [place] [facility] OF DYSPNEA SERV [facility] Z780 ASYMPTOMATI [...] INC N J984 OTHER 04-01-2016 [facility] DISORDERS [facility] OF LUNG INTERNAL MED R05 COUGH 03-19-2016 [facility] J679 HYPERSENSIT 09-25-2015 [facility] PNEUMONIT INC D/T UNS ORGANIC DUST R918 OTHER 09-25-2015 [facility] NONSPECIFIC MEDICAL ABNORMAL IMAGING ASS FINDING OF LUNG FIELD R0989 OTH SPEC SX 09-17-2015 [facility] & SIGNS MEDICAL INVLV THE IMAGING ASS CIRC & RESP SYS R509 FEVER 09-17-2015 [facility] UNSPECIFIED [facility]ICAL IMAGING ASS Q29354 UNSPECIFIED 09-16-2015 [facility] ASTHMA SERV UNCOMPLICAT FOUNDATION ED A048 OTHER 05-20-2015 [facility] BACTERIAL GROUP INTESTINAL INFECTIONS 40596 EXTRINSIC 06-13-2014 [place] [facility] ASTHMA, SERV UNSPECIFIED FOUNDATION 4959 UNSPECIFIED 06-13-2014 [facility] ALLERGIC SERV ALVEOLITIS FOUNDATION AND PNEUMONITIS 515 POSTINFLAMM 06-13-2014 [facility] ATORY [facility] PULMONARY FOUNDATION FIBROSIS 7109 UNSPECIFIED 06-13-2014 [facility] DIFFUSE SERV CONNECTIVE [facility] TISSUE DISEASE 2768 HYPOPOTASSE 05-23-2014 [facility] ISHA [facility]OOKER INTERNAL MED 2859 UNSPECIFIED 05-23-2014 [facility] ANEMIA [facility] INTERNAL MED 486 PNEUMONIA, 05-23-2014 [facility] ORGANISM BROOKER UNSPECIFIED INTERNAL MED 2830 AUTOIMMUNE 04-30-2014 [facility] ANEMIAS INC 4830 PNEUMONIA 04-11-2014 [facility] DUE TO SERV MYCOPLASMA [facility] PNEUMONIAE 32505 DEHYDRATION 03-16-2014 [facility] INC 496 CHRONIC 03-16-2014 [facility] P NEC 86599 OTHER 03-16-2014 [facility] DISEASES OF MEDICAL LUNG NOT IMAGING ASS ELSEWHERE CLASSIFIED 55720 FEVER 03-16-2014 [facility] UNSPECIFIED VALLEY INTERNAL MED 80095 OTHER 03-16-2014 [facility] NONSPECIFIC MEDICAL ABNORMAL IMAGING [...] ALVEOL&IZABELA [facility] ETOALVEOL INTERNAL PNEUMONOPAT MED HIES 12258 UNSPECIFIED 11-13-2013 [facility] ARTHROPATHY INTERNAL MULTIPLE MED SITES 19065 EXTRINSIC 09-20-2013 [facility] ASTHMA, JAM WITH EXACERBATIO N 42291 LOSS OF 05-31-2013 [facility] WEIGHT JAM 4952 BIRD-FANCIE 03-01-2013 [facility] RS LUNG JAM 6954 LUPUS 03-01-[place] [address] PECTUS 03-01-2013 [facility] EXCAVATUM JAM 57055 ACUTE 02-08-2013 [facility] IS DUE OTH INC INFECTIOUS ORGANISMS 22904 SHORTNESS 01-25-2013 [facility] OF BREATH JAM 7862 COUGH 01-25-2013 [facility] INC 54611 UNSPECIFIED 12-19-2012 [facility] RESPIRATORY ABNORMALITY 19055 OTHER 10-16-2012 [facility] DYSPNEA AND TEGAN RESPIRATORY ABNORMALITI ES V1261 PERSONAL 10-16-2012 [facility] HISTORY TEGAN PNEUMONIA RECURRENT V148 PERSONAL 10-16-2012 [facility] HISTORY TEGAN ALLERGY OTH SPEC MEDICINAL AGTS V5864 LONG-TERM 10-16-2012 [facility] USE TEGAN NON-STEROID AL ANTI-INFLAM MATORIES 54852 NUCLEAR 08-16-2012 [facility] SCLEROSIS SHIVAM 3669 UNSPECIFIED [...] DOS Code Location Performer Comment DXA BONE 66389 [facility] [place] [address] MEDICAL STUDY 1/> IMAGING SITES ASS AXIAL SKEL IM ADM 55681 [facility] SURESH PRQ ID 7 [facility] SUBQ/IM INTERNAL NJXS 1 MED VACCINE ANNUAL G0439 [facility] WELLNESS 7 VAL[facility] VST; INTERNAL PERSONALI MED ZED PPS SUBSQT VST PCV13 58565 [facility] VACCINE 7 [facility] FOR INTERNAL INTRAMUSC MED ULAR USE GENERAL 17655 [facility] PANEL INC INC COLLECTIO 85503 [facility] N VENOUS 7 [facility] BLOOD INC INC VENIPUNCT URE LIPID 91780 [facility] PANEL 7 [facility] INC INC RADIOLOGI [address] [facility] C EXAM 6 MEDICAL CHEST 2 IMAGING VIEWS ASS FRONTAL&L ATERAL IIV 55173 [facility] VACCINE 6 PHARMACY PHARMACY PRESERV #591 #591 FREE INCREASED AG CONTENT IM ADMINISTR G0008 [facility] ATION OF PHARMACY PHARMACY INFLUENZA #591 #591 VIRUS VACCINE IMMUNODIF 41667 [facility] D[facility] FUSION 6 [facility] GEL INC INC DIFFUSION QUAL EA AG/ANTBDY ANTIBODY 03824 [facility] D[facility]AN ASPERGILL 6 [facility] US INC INC CT THORAX 87196 [facility] NOBLE ALL W/O 6 MEDICAL CONTRAST IMAGING MATERIAL ASS COLLECTIO 41375 [facility] N VENOUS 6 [facility] BLOOD INC INC VENIPUNCT URE ALLERGEN 81647 RENEEMATTHEW FRYEON SPECIFIC 6 [facility] IGG INC INC EVELYN/SEMI EVELYN EA ALLERGEN RADIOLOGI 42620 [facility] C EXAM 6 [facility] CHEST 2 INC INC VIEWS FRONTAL&L ATERAL SPMTRY 72392 EFE [facility] W/VC 6 MEDICAL JAM EXPIRATOR SERV Y LESLYE FOUNDATIO W/[place] [address] EFE [facility] DIFFUSING 6 MEDICAL JAM CAPACITY SERV FOUNDATIO N NONINVASI 13553 [facility] VE 6 [facility] EAR/PULSE INC INC OXIMETRY MULTIPLE DETER GAS 29371 [place] DILUT/WAS 6 MEDICAL JAM HOUT LUNG SERV VOL W/WO FOUNDATIO DISTRIB N VENT&V PULMONARY 23191 [place] [facility] STRESS 6 MEDICAL JAM TESTING SERV SIMPLE FOUNDATIO N BRNCDILAT 21536 [facility] D[facility] RSPSE 6 [facility] SPMTRY INC INC PRE&POST- BRNCDILAT ADMN PRESSURIZ 94012 R[facility] DURAN ED/NONPRE 6 [facility] SSURIZED INC INC INHALATIO N TREATMENT IAADIADOO 91024 [facility] BESSON 5 [facility] [place] INFLUENZA INTERNAL MED THERAPEUT 61161 [facility] IC 5 [facility] [place] PROPHYLAC INTERNAL TIC/DX MED INJECTION SUBQ/IM INJECTION J0696 [facility] 5 [facility] CEFTRIAXO INTERNAL INTERNAL NE SODIUM MED MED PER 250 MG COLLECTIO 05073 [facility] N VENOUS 5 [facility] BLOOD INC INC VENIPUNCT URE ANTIBODY 90803 [facility] IDENTIFIC 5 [facility] ATION INC INC LEUKOCYTE ANTIBODIE S ANTIHUMAN 75443 [facility] GLOBULIN 5 [facility] DIRECT INC INC EACH ANTISERUM BASIC 26797 [facility] METABOLIC 5 [facility] PANEL INC INC CALCIUM TOTAL ANTINUCLE 01309 [facility] AR 5 [facility] ANTIBODIE INC INC S HERBER BLOOD 96743 [facility] D[facility]AN COUNT 5 [facility] COMPLETE INC INC AUTO&AUTO DIFRNTL WBC BLOOD 83713 [facility] D[facility] COUNT 4 [facility] COMPLETE INC INC AUTO&AUTO DIFRNTL WBC COMPREHEN 82096 [facility] DURAN SIVE 4 [facility] METABOLIC INC INC PANEL HOSPITAL 38969 [facility] DISCHARGE 4 [facility] INTERNAL MANAGEMEN MED T 30 MIN/< SBSQ [address] [place] [address] CARE/DAY INTERNAL 35 MED MINUTES SBSQ [address] [place] [address] CARE/DAY INTERNAL 35 MED MINUTES RADIOLOGI 23281 [facility] C EXAM 4 MEDICAL JUAN RAMON CHEST 2 IMAGING VIEWS ASS FRONTAL&L ATERAL IAADIADOO [address] [place] [address] INFLUENZA INTERNAL MED INITIAL [address] [place] [address] CARE/DAY INTERNAL 50 MED MINUTES ECG 03551 [facility] COULTER ROUTINE 4 [facility] W/LEAST P 12 LDS I&R ONLY INJECTION J0696 [place] [address] CEFTRIAXO INTERNAL NE SODIUM MED PER 250 MG INJECTION J3301 [place] [address] TRIAMCINO INTERNAL LONE MED ACETONIDE NOS 10 MG THERAPEUT 71393 [facility] IC 4 [facility] PROPHYLAC INTERNAL TIC/DX MED INJECTION SUBQ/IM COMPREHEN 66007 [facility] SIVE 4 [facility] METABOLIC INC INC PANEL CT THORAX 22701 AMPARO REYEZ W/O 4 MEDICAL JUAN RAMON CONTRAST IMAGING MATERIAL ASS NONINVASI 70894 [facility] VE 4 [facility] EAR/PULSE [place] [address] R[facility] DURAN DIFFUSING 4 [facility] CAPACITY INC INC GAS 44295 R[facility] DURAN DILUT/WAS 4 [facility] HOUT LUNG INC INC VOL W/WO DISTRIB VENT&V BRNCDILAT 42148 [facility] D[facility] RSPSE 4 [facility] SPMTRY INC INC PRE&POST- BRNCDILAT ADMN CT THORAX 17954 [facility] D[facility] W/O 3 [facility] CONTRAST INC INC MATERIAL ALLERGEN 88501 [facility] DURAN SPECIFIC 3 [facility] IGG INC INC EVELYN/SEMI EVELYN EA ALLERGEN BLOOD 20129 [facility] DURAN COUNT 3 [facility] COMPLETE INC INC AUTO&AUTO DIFRNTL WBC ANTIBODY 10158 [facility] D[facility] ASPERGILL 3 [facility] US INC INC ANTINUCLE 95061 REENE DURAN AR 3 [facility] [place] [address] R[facility] DURAN GAMMAGLOB 3 [facility] ULIN IGE INC INC COMPREHEN 84591 [facility] DURAN SIVE 3 [facility] METABOLIC INC INC PANEL SEDIMENTA 17874 [facility] TION RATE 3 [facility] RBC INC INC NON-AUTOM ATED IMMUNODIF 22231 [facility] FUSION 3 [facility] GEL INC INC DIFFUSION QUAL EA AG/[place] [address] RENEE DURAN GAMMAGLOB 3 [facility] ULIN IGA INC INC IGD IGG IGM EACH ECHO 67260 [facility] TTHRC R-T 3 [facility] 2D INC INC W/WOM-MOD E COMPL SPEC&COLR D BRNCDILAT 83240 [facility] RSPSE 3 [facility] SPMTRY INC INC PRE&POST- BRNCDILAT ADMN GAS 49393 [facility] D[facility] DILUT/WAS 3 [facility] HOUT LUNG INC INC VOL W/WO DISTRIB VENT&V RADIOLOGI 26053 [facility] C EXAM 3 [facility] CHEST 2 INC INC VIEWS FRONTAL&L ATERAL FIBRIN 25660 [facility] DGRADJ 3 [facility] PRODUCTS INC INC D-DIMER QUAL/SEMI EVELYN BLOOD 24534 [facility] DURAN COUNT 3 [facility] COMPLETE INC INC AUTO&AUTO DIFRNTL WBC PRESSURIZ 68408 [facility] D[facility] ED/NONPRE 3 [facility] SSURIZED INC INC INHALATIO N TREATMENT ECG 29826 MELISA HARMON ROUTINE 3 EMERGENCY ECG SERVICES W/LEAST 12 LDS I&R ONLY ECG 25115 [facility] D[facility] ROUTINE 3 [facility] ECG INC INC W/LEAST 12 LDS TRCG ONLY W/O I&R POSTERIOR V2632 [facility] CHAMBER 3 [facility] INTRAOCUL INC INC AR LENS CATARACT 02214 [facility] DUR[facility] REMOVAL 3 [facility] INSERTION INC INC OF LENS OPH BMTRY 54002 [facility] 3 SHIVAM SHIVAM ECHOGRAPY A-SCAN IO LENS PWR ANTIONETTE OPHTH 66157 [facility] MEDICAL 3 SHVIAM SHIVAM XM&EVAL COMPRE NEW PT 1/> VST IODINE A9516 [facility]AN I-123 3 [facility] SODIUM INC INC IODIDE DX PER 100 UCI TO 999 THYROID 50759 [facility] D[facility] UPTAKE 3 [facility] W/BLOOD INC INC FLOW SNGLE/MUL T EVELYN MIC US SOFT 68253 [facility] TISSUE 3 [facility] HEAD & INC INC NECK REAL TIME IMGE DOCM RADIOLOGI 08604 [facility] DURAN C EXAM 3 [facility] CHEST 2 INC INC VIEWS FRONTAL&L ATERAL RADIOLOGI 99478 [facility] DURAN C EXAM 3 [facility] CHEST 2 INC INC VIEWS FRONTAL&[place] [address] [facility] D[facility] FREE 3 [facility] THYROXINE INC INC GENERAL 07913 R[facility]EE DURAN [facility] 3 [facility] PANEL INC INC IIV3 48441 [facility] DURAN VACCINE 3 [facility] SPLIT CENTER CENTER VIRUS 0.5 ML DOSAGE IM USE PPSV23 13266 [facility] D[facility] VACCINE 2 3 [facility] YRS OR CENTER CENTER OLDER FOR SUBQ/IM USE HOSPITAL 11151 [facility] 3 [place] [facility] DAY MANAGEMEN T 30 MIN/< SBSQ 76432 [facility] 3 [place] CARE/DAY 25 MINUTES RADIOLOGI 86370 DEREJE DEREJE C 3 JUAN RAMON JUAN RAMON EXAMINATI ON CHEST [place] FRONTAL INITIAL 86996 [facility] 3 JR TEGAN JR TEGAN CARE/DAY 50 MINUTES Encounters Encounter Start End Date Code Location Performer Type Date OFFICE 87271 [place] [facility] OUT[facility] 7 7 MEDICAL T VISIT SERV 25 FOUNDATIO MINUTES N OFFICE 44776 [facility] OUTPATIEN 7 7 [facility] T VISIT INTERNAL 15 MED MINUTES [facility]OSPITAL [facility] - 7 7 [facility] OUTPATIEN INC T OFFICE 97398 [facility] B[facility]ON OUTPATIEN 7 7 [facility] T VISIT INTERNAL 15 MED MINUTES OFFICE 73673 [facility] OUTPATIEN 7 7 [facility] T VISIT INTERNAL 25 MED MINUTES HOSPITAL [facility] - 6 6 [facility] INPATIENT INC OFFICE 15296 [place] [facility] OUTPAT[facility] 6 6 MEDICAL JAM T VISIT SERV 15 FOUNDATIO MINUTES N OFFICE 65135 [place] [facility] OUTPATIEN 6 6 MEDICAL JAM T VISIT SERV 15 FOUNDATIO MINUTES HOSPITAL [facility] - OTHER 6 6 [facility] RENEE - 6 6 [facility] OUTPATIEN INC [facility] - 6 6 [facility] OUTPATIEN INC T OFFICE 87178 [facility] OUTPATI[facility] 6 6 PHYSICIAN T VISIT S GROUP 10 MINUTES OFFICE 06565 [facility] OUTPATI[facility] 6 6 PHYSICIAN T VISIT S GROUP 10 MINUTES OFFICE 05575 [facility] OUTPATIEN 5 5 [facility] T VISIT INTERNAL 15 MED MINUTES OFFICE 31474 [place] [facility] OUTPAT[facility] 5 5 MEDICAL JAM T VISIT SERV 25 FOUNDATIO MINUTES N OFFICE 82375 [facility] OUTPATIEN 5 5 [facility] T VISIT INTERNAL 15 MED MINUTES HOSPITAL [facility] - 5 5 [facility] OUTPATIEN INC T OFFICE 66035 [place] OUTPATIEN 5 5 MEDICAL JAM T VISIT SERV 25 FOUNDATIO MINUTES N OFFICE 08914 [facility] S[facility] OUTPATIEN 4 4 [facility] T VISIT INTERNAL 15 MED MINUTES HOSPITAL R[facility] - 4 4 [facility] OUTPATIEN INC [facility]PITAL R[facility] - 4 4 [facility] INPATIENT INC OFFICE 36729 [facility] OUTPATIEN 4 4 [facility] T VISIT INTERNAL 15 MED MINUTES OFFICE 28481 [facility] KEL[facility]Y OUTPATIEN 4 4 JAM JAM T VISIT 15 MINUTES OFFICE 20083 [facility] OUTPATIEN 4 4 [facility] T VISIT INTERNAL 15 MED MINUTES HOSPITAL [facility] - 4 4 [facility] OUTPATIEN INC [facility] - 4 4 [facility] OUTPATIEN INC T OFFICE 93284 [facility] KEL[facility]Y OUTPATIEN 4 4 JAM JAM T VISIT 25 MINUTES HOSPITAL [facility] - 4 4 [facility] OUTPATIEN INC T OFFICE 75186 [facility] OUTPATIEN 4 4 YAZMIN ARCE T VISIT 25 MINUTES OFFICE 20575 [facility] OUTPATIEN 3 3 YAZMIN ARCE T VISIT 25 MINUTES HOSPITAL [facility] - 3 3 [facility] OUTPATIEN INC T [facility]OSPITAL [facility] - 3 3 [facility] OUTPATIEN INC T OFFICE 38499 [facility] KELSEY CONSULTAT 3 3 YAZMIN ARCE ION NEW/ESTAB PATIENT 80 MIN OFFICE 51957 [facility] MCKEMIE OUTPATIEN 3 3 JR TEGAN JAVED T VISIT 15 MINUTES OFFICE 31672 [facility] MCKEMIE OUTPATIEN 3 3 JR TEGAN JAVED T VISIT 15 MINUTES HOSPITAL [facility] - 3 3 [facility] OUTPATIEN INC T OFFICE 74202 [facility] MCKEMIE OUTPATIEN 3 3 JR TEGAN JAVED T VISIT 15 MINUTES HOSPITAL [facility] - 3 3 [facility] OUTPATIEN INC T EMERGENCY 68607 MELISA HARMON DEPT 3 3 EMERGENCY VISIT SERVICES HIGH SEVERITY& THREAT FUN EMERGENCY 68636 [facility] 3 3 [facility] T VISIT HIGH/URGE NT SEVERITY HOSPITAL ERNEE - 3 3 [facility] OUTPATIEN INC T HOSPITAL R[facility]EE - 3 3 [facility] OUTPATIEN INC T [facility]OSPITAL [facility] - 3 3 [facility] OUTPATIEN INC T OFFICE 63395 [facility] PRINCE OUTPATIEN 3 3 ZACKARY RAYMUNDO T VISIT 15 MINUTES HOSPITAL R[facility]EE - 3 3 [facility] OUTPATIEN INC T EMERGENCY 84898 ALONDRA CANTU DEPT 3 3 III TEGAN III TEGAN VISIT HIGH SEVERITY& THREAT FUNJ
--- OUTSIDE RECORDS SUMMARY | 2016-11-09 12:39 | External Medical Summary Rpt ---
Author Author , RUFINO JOY Address Unknown Phone [email or web address] Immunization Name Date Rout CVX Reac Dose [...]
--- OUTSIDE RECORDS SUMMARY | 2016-11-09 12:39 | External Medical Summary Rpt ---
Author Author RUFINO Armstrong, [employer] Organization [employer] Address Unknown Phone Unavailable Results Amylase [Enzymatic activity/volume] in Serum or Plasma Observa Value Referen Units Interpr Notes Date tion ce etation Range Amylase 25 - 115 U/L Normal No Oct 14 [Enzymati informati 2016 c on in 10:25 AM activity/ source volume] data in Serum or Plasma Natriutietic peptide B [Mass/volume] in Serum or Plasma Observa Value Referen Units Interpr Notes Date tion ce etation Range Natriutie 0 - 100 pg/mL Normal No Oct 14 tic inform2016 peptide B on in 10:25 AM source [Mass/vol data ume] in Serum or Plasma Lipase [Enzymatic activity/volume] in Serum or Plasma Observa Value Referen Units Interpr Notes Date tion ce etation Range Lipase 73 - 393 U/L Normal No Nov 09 [Enzymati informati 2016 c on in 10:25 AM activity/ source volume] data in Serum or Plasma Free T4 & TSH panel in Serum or Plasma Observa Value Referen Units Interpr Notes tion ce etation Range Thyroxine 5.93 - ug/dl Low No Nov 09 (T4) 13.13 informati 2016 free on in 10:25 AM index in source Serum or data Plasma Triiodoth 31 - 39 % Normal No Nov 09 yronine inform2016 (T3) on in 10:25 AM resin source uptake in data Serum or Plasma Thyroxine 4.7 - ug/dl Normal No Nov 09 (T4) 13.3 informati 2016 [Mass/vol on in 10:25 AM ume] in source Serum or data Plasma Thyrotrop 0.358 - uIU/ml High No Nov 09 in 3.740 informati 2016 [Units/vo on in 10:25 AM lume] in source Serum or data Plasma Fibrin D-dimer FEU [Mass/volume] in Platelet poor plasma Observa Value Referen Units Interpr Notes Date tion ce etation Range IS PATIENT ON ANTICOAGULANTS? N PTT RESULTS MUST BE CALLED IF PT ON HEPARIN!!! Y Fibrin 0 - 400 ng/mL High Nov 09 D-dimer alert NOTIFICAT 2017 FEU ION 10:25 AM [Mass/vol RESULT ume] in The Platelet D-Dimer poor values plasma are presented in units of mass(ng/m L) ofD-Dimer units(DDU ).This test has been FDA approved as an aid in the assessmen tand evaluatio n of suspected DIC, and thromboem bolic eventsinc luding PE and DVT. However, it does not have approvalf or cut-off values for the exclusion of these condition s. INR in Blood by Coagulation assay Observa Value Referen Units Interpr Notes Date tion ce etation Range IS PATIENT ON ANTICOAGULANTS? N PTT RESULTS MUST BE CALLED IF PT ON HEPARIN!!! Y INR in 0.9 - 1.1 No Normal INDICATIO Nov 09 Blood by informati N 2016 Coagulati on in 10:25 AM on assay source INR data RANGETHER APY FOR DVT, PE, ATRIAL FIB; 2.0 - 3.0PROPHY LAXIS FOR VTETHERAP Y FOR MECHANICA L HEART 2.5 - 3.5VALVE; PREVENTIO N OF SYSTEMICE MBOLISM SECONDARY TO AMI Prothromb 9.4 - SECONDS Normal No Nov 09 in time 11.8 inform2016 (PT) in on in 10:25 AM Platelet source poor data plasma by Coagulati on assay Activated partial thrombplastin time (aPTT) in Platelet poor plasma by Coagulation assay Observa Value Referen Units Interpr Notes Date ti etation Range IS PATIENT ON ANTICOAGULANTS? N PTT RESULTS MUST BE CALLED IF PT ON HEPARIN!!! Y Activated 23.6 - SECONDS Normal No Nov 09 partial 34.0 2016 thrombpla on in 10:25 AM stin time source (aPTT) data in Platelet poor plasma by Coagulati on assay CBC W Auto Differential panel in Blood Observa Value Referen Units Interpr Notes Date tion ce etation Range Granulocy 1.8 - 7.8 K/mm3 High No Nov 09 humberto ati 2016 [#/volume on in 10:25 AM ] in source Blood by data Automated count Granulocy 37.0 - % High No Nov 09 humberto/100 80.0 2016 leukocyte on in 10:25 AM s in source Blood by data Automated count Hematocri 37.0 - % Normal No Nov 09 t [Volume 47.0 2016 on in 10:25 AM Fraction] source of Blood data Hemoglobi 12.2 - g/dL Low No Nov 09 n 16.2 2016 [Mass/vol on in 10:25 AM ume] in source Blood data Lymphocyt 0.7 - 4.5 K/mm3 Normal No Nov 09 es 2016 [#/volume on in 10:25 AM ] in source Unspecifi data ed specimen by Automated count Lymphocyt 10 - 50.0 % Normal No Nov 09 es 2016 [#/volume on in 10:25 AM ] in source Unspecifi data ed specimen by Automated count Erythrocy 27 - 31.2 pg Low No Nov 09 te mean 2016 corpuscul on in 10:25 AM ar source hemoglobi data n [Entitic mass] Erythrocy 31.8 - g/dl Low No Nov 09 te mean 35.4 2016 corpuscul on in 10:25 AM ar source hemoglobi data n concentra tion [Mass/vol ume] by Automated count Erythrocy 82.2 - fL Normal No Nov 09 te mean 97.8 2016 corpuscul on in 10:25 AM ar volume source [Entitic data volume] by Automated count Monocytes 0.1 - 1.0 K/mm3 Normal No Nov 092016 [#/volume on in 10:25 AM ] in source Blood by data Automated count Monocytes 1.7 - 9.3 % Normal No Nov 09 /100 2016 leukocyte on in 10:25 AM s in source Blood by data Automated count Platelets 142 - 424 K/mm3 Normal No Oct 14 2016 [#/volume on in 10:25 AM ] in source Blood data Erythrocy 4.2 - 5.4 M/mm3 Normal No Nov 09 humberto 2016 [#/volume on in 10:25 AM ] in source Amniotic data fluid Erythrocy 11.5 - % Normal No Nov 09 te 17.5 2016 distribut on in 10:25 AM ion width source [Entitic data volume] by Automated count Leukocyte 4.8 - K/mm3 High No Nov 09 s 10.8 2016 [#/volume on in 10:25 AM ] in source Blood data Differential panel, method unspecified - Observa Value Referen Units Interpr Notes Date tion ce etation Range LYMPH 15 10 - 50 % Normal No Oct 14 2016 tion in 10:25 source AM data Monocytes 2 - 9 % Normal No Nov 092016 leukocyte on in 10:25 AM s in source Blood by data Automated count Platele NORMAL No No No No Oct 14 ts informa informa inform inform2016 [Presen tion in tion in tion in tion in 10:25 ce] in source source source source AM Blood data data data data by Light microsc opy Neutrophi 42 - 76 % High No Nov 09 ls 2016 [#/volume on in 10:25 AM ] in source Blood by data Automated count Cells No #CELLS No No Oct 14 Counted ati 2016 Total [#] on in on in on in 10:25 AM in Blood source source source data data data CBC W Auto Differential panel in Blood Observa Value Referen Units Interpr Notes Date ti ce etation Range Basophils 0 - 0.2 K/MM3 Normal No Oct 282016 3:23 [#/volume on in PM ] in source Blood by data Automated count Basophils 0.1 - 2.0 % Normal No Oct 28 inform2016 3:23 leukocyte on in PM s in source Blood by data Automated count Eosinophi 0.0 - 0.4 K/mm3 Normal No Oct 28 ls 2016 3:23 [#/volume on in PM ] in source Blood by data Automated count Eosinophi 0.1 - % Normal No Oct 28 ls/100 12.0 inform2016 3:23 leukocyte on in PM s in source Blood by data Automated count Granulocy 1.8 - 7.8 K/mm3 Normal No Oct 2 humberto 2016 3:23 [#/volume on in PM ] [...] 4.5 K/mm3 Normal No Oct 28 es inform2016 3:23 [#/volume on in PM ] in source Unspecifi data ed specimen by Automated count Lymphocyt 10 - 50.0 % Normal No Oct 28 es inform2016 3:23 [#/volume on in PM ] in [...] 0.1 - 1.0 K/mm3 Normal No Oct 28 informati 2016 3:23 [#/volume on in PM ] in source Blood by data Automated count Monocytes 1.7 - 9.3 % Normal No Oct 2 /100 informati 2017 3:23 leukocyte on in PM s in source Blood by data Automated count Platelet 7.4 - fl Normal No Oct 28 mean 10.4 informati 2016 3:23 volume on in PM [Entitic source volume] data in Blood by Automated count Platelets 142 - 424 K/mm3 Normal No Oct 28 informati 2016 3:23 [#/volume on in PM ] in source Blood data Erythrocy 4.2 - 5.4 M/mm3 Normal No Oct 2 humberto informati 2016 3:23 [#/volume on in PM ] in source Amniotic data fluid Erythrocy 11.5 - % Normal No Oct 28 te 17.5 informati 2016 3:23 distribut on in PM ion width source [Entitic data volume] by Automated count Leukocyte 4.8 - K/MM3 Normal No Oct 28 s 10.8 informati 2016 3:23 [#/volume on in PM ] in source Blood data Erythrocyte sedimentation rate by Westergren method Observa Value Referen Units Interpr Notes Date tion ce etation Range Erythrocy 0 - 30 mm/hr High No Aug 2 te informati 2016 3:23 sedimenta on in PM tion rate source by data Westergre n method Comprehensive metabolic 2000 panel in Serum or Plasma Observa Value Referen Units Interpr Notes Date tion ce etation Range Albumin/G 1.1 - 1.8 No Low No Oct 28 lobulin informati informati 2016 3:23 [Mass on in on in PM ratio] in source source Serum or data data Plasma Albumin 3.4 - 5.0 gm/dL Normal No Oct 28 [Mass/vol informati [...] ML/MIN No REFERENCE Oct 28 informati RANGE: 2017 3:23 glomerula on in >60 PM r [...]
--- OUTSIDE RECORDS SUMMARY | 2016-11-09 12:39 | External Medical Summary Rpt ---
Author Author , RUFINO JOY Address Unknown Phone [email or web address] Immunization Name Date Rout CVX Reac Dose [...]
[2016-11-09 14:03] VITALS: BP 141/65
[2016-11-09 14:19] VITALS: BP 141/65
--- NOTE | 2016-11-09 15:16 | CONSULT NOTE ---
See Addendum Standard Demographics Patient Demo Date of Consultation: 11/09/16 Referring Provider: Dewayne Choudhury MD Reason for Consultation: chest pain, palpitations PRIMARY DIAGNOSIS: CHEST PAIN Problem list Problem list: 1. Pulmonary fibrosis, followed by Dr. Malcolm Fraser. Chest CT 2015 showing new suspicious nodules. Bronchoscopy recommended. B. Pulmonary fibrosis felt secondary to ALLERGY to bird dander 2. Right-sided trigeminal neuralgia 3. Raynaud's syndrome for which the patient is on Norvasc. 4. Hypertension 5. Questionable history of CVA 6. History of gout History of present illness: History of present illness: 66-year-old white female with history of pulmonary fibrosis was seen in the emergency department today for onset of chest discomfort and rapid heart heartbeats this a.m. that would not resolve. Patient does note some chest discomfort starting in the anterior portion of the chest and radiating through to the back with deep breathing Patient relates some brief intermittent mild episodes of similar fast heart rates in the past but none that lasted this long or this intense. She denies any recent fever or chills. No nausea or vomiting or diarrhea. Patient does have a chronic dry cough that has not changed recently. Electrocardiogram in the emergency room shows sinus rhythm with RSR prime pattern and possible LEFT atrial enlargement without acute ST segment change. Initial troponin is normal. CT scan of the chest showed no evidence of pulmonary embolus nor aortic dissection. Cardiology consulted for further evaluation and recommendations. Past Medical History: General: Hypertension Yes CVA Yes Seizures No TB No COPD No Asthma No Diabetes No Angina No HI No Hyperlipidemia No Urinary No Cancer No Rheumatic H.D. No Ulcers No MRSA No GB Disease No Other PNEUMONIA IN JAN 2015 Additional hx interstitial lung disease - followed by Dr Malcolm [facility] NE[facility] Past Surgical HX: Previous Surgery?Y CARARACT RIGHT EYE Allergies Coded Allergies: clindamycin (I-HIVES 11/03/16) Home medications: Active Scripts Azithromycin (Zithromax) 250 MG PO DAILY #6 TAB Prov: 03/21/16 Prednisone (Prednisone 20MG) 20 MG PO DAILY #5 TAB Prov: 03/21/16 Reported Medications Aspirin 81 MG PO DAILY Amlodipine Besylate (Amlodipine) 5 MG PO DAILY BUDESONIDE/FORMOTEROL FUMARATE (Symbicort 160-4.5 Mcg Inhaler) 1 PUFF IH BID Indomethacin 50 MG PO TID #45 Famotidine (Famotidine 20MG) 20 MG PO BID #60 Current Medications: Current Medications Aspirin 324 MG ONCE ONE PO (DC) Aspirin 0 .STK-MED ONE .ROUTE (DC) Sodium Chloride 10 ML PRN PRN IV Immunization HX DT/Tetanus Unknown Flu 2016-17FSN Pneumonia RECEIVED IN PAST TB Test in last year No Family history Family HX Family Hx Insignificant No Diabetes Yes CAD No Hypertension No Hyperlipidemia No Cancer Yes TB No Social Hx: Smoking HX Tobacco No Packs/day N/A Are you/the child exposed to second-hand smoke: No Alcohol Alcohol: No Hx of Drug Use Drug Use? No Patient's support system is good Review of systems: Constitutional No: no symptoms reported. Respiratory SOB with excertion. Cardiovascular see HPI, chest pain, palpitations Gastrointestinal/Abdominal No no symptoms reported Genitourinary No: no symptoms reported. Musculoskeletal back pain. Neurological Yes: parasthesia. Exam: Admission Vital Signs: 1ST Vital Signs Result Date Time Pulse Ox 99 11/09 1019 B/P 140/76 11/09 1019 Temp 99.6 11/09 1019 Pulse 108 11/09 1019 Resp 20 11/09 1019 O2 Delivery ROOM AIR 11/09 1403 Last Vital Signs: Vital Signs Result Date Time Pulse Ox 96 11/09 1419 B/P 141/65 11/09 1419 O2 Delivery ROOM AIR 11/09 1419 Temp 99.0 11/09 1419 Pulse 105 11/09 1419 Resp 18 11/09 1419 Exam General appearance: alert, awake, no acute distress Neck: no carotid bruit, no JVD Cardiovascular: regular rate & rhythm, no murmur Respiratory: decreased breath sounds bilaterally with some inspiratory squeaks RIGHT greater than LEFT. ABD: soft, no tenderness Extremities: moves all, no peripheral edema Neuro: alert, intact, oriented, speech clear Laboratory data: Laboratory Tests 11/09/16 1416: Creatine Kinase 68, CK-MB (CK-2) Rel Index 1.2, CK and CKMB Interp 0.8, Troponin I < 0.02 11/09/16 1025: B-Natriuretic Peptide 9, Amylase 46, Lipase 83, TSH 4.37 H, Free T4 Index 5.2 L, Thyroxine (T4) 6.6, T3 Uptake 32 11/09/16 1025: Sodium 143, Potassium 3.9, Chloride 107, Carbon Dioxide 28, BUN 20 H, Creatinine 0.7, Estimated Creat Clear 56, Estimated GFR (MDRD) 83, Glucose 90, Calcium 9.0, Total Bilirubin 0.8, AST 18, ALT 16, Alkaline Phosphatase 95, Creatine Kinase 68, CK and CKMB Interp 1.1, Troponin I < 0.02, Total Protein 7.5 , Albumin 3.4, Globulin 4.1 H, Albumin/Globulin Ratio 0.8 L, PT 10.0, INR 0.93 , APTT 26.8, D-Dimer 478 *H, WBC 17.9 H, RBC 4.42, Hgb 11.6 L, Hct 37.1, MCV 83.9, RDW 17.4, Plt Count 298, Gran % 84.5 H, Gran # 15.1 H, Total Counted 100 , Lymphocytes % 11.2, Monocytes % 4.3, Neutrophils 80 H, Lymphocytes (Manual) 15, Lymphocytes # 2.0, Monocytes (Manual) 5, Monocytes # 0.8, Platelet Estimate NORMAL, PUBS MCHC 31.3 L, MCH 26.2 L Plan: Assessment: 1. Chest pain with atypical features. Non-cardiac etiology suspected. 2. Palpitations 3. Idiopathic pulmonary fibrosis 4. Hypertension 5. Hypothyroidism with elevated TSH and low free T4. 6. GERD Recommendations: 1. Will obtain an echocardiogram to evaluate LEFT ventricular size and function with abnormal electrocardiogram suggestive of LEFT atrial enlargement and RIGHT ventricular conduction delay. 2. Continue to monitor on telemetry for possible atrial fibrillation in the setting of pulmonary disease. 3. Further regulations to follow at 5127
[2016-11-09 16:00] VITALS: BP 123/74
--- NOTE | 2016-11-09 16:34 | RADIOLOGY REPORT PS360 ---
PROCEDURE: 2-D M-mode and color Doppler study INDICATIONS FOR THE TEST: Chest painX COPD Heart Murmur Tobacco Smoking PalpitationsX Fatigue Syncope Edema HypertensionXDiabetes Mellitus Rheumatic Fever SOBXXDOE Obesity Hyperlipidemia Family History HD Additional History PUL FIBROSIS CVA PATIENT INFORMATION HEIGHT: 65 WEIGHT:99 GENDER: Female B/P:141/65 2-D/M-MODE INTERPRETATION: 2-D MEASUREMENTS OBSERVED VALUES IN CMS Right Ventricular Dimension (RVDd) 1.4 Interventricular Septum (Thickness)(IVsd) 1.1 Left Ventricular Internal Dimensions(LVIDd) 3.4 Left Ventricular Posterior Wall (Thickness)(LVPWd) .7 Aortic Root 2.9 Aortic Cusp Separation 2.1 Left Atrial Dimensions (LAD) 2.5 2D 1. Technically difficult study because of the patient's factor and poor acoustic windows. 2. Left atrium is normal size, left ventricle is normal size, there is no concentric left ventricular hypertrophy, visually estimated ejection fraction 55% with no obvious regional wall motion abnormality. 3. The right atrium and right ventricle are relatively normal size and function. 4. The aortic valve is minimally thickened and fibrosed. 5. The mitral and tricuspid valve are grossly normal. 6. No significant pericardial effusion noted. DOPPLER INTERROGATION: Doppler interrogation is suboptimal, mitral inflow, aortic outflow and tricuspid velocities were not recorded. CONCLUSION: 1. Technically difficult study 2. Normal left ventricular size, preserved left ventricular systolic function, visually estimated ejection fraction 55% with no obvious regional wall motion abnormality. 3. The color and spectral Doppler is suboptimal. 4. No significant pericardial effusion noted.
--- NOTE | 2016-11-09 16:54 | RADIOLOGY REPORT PS360 ---
CTA-CHEST HISTORY: CHEST PAIN,DYSPNEA Patient Age: 66 years: Female Ordering Physician: Dewayne Choudhury MD TECHNIQUE: Helical CT scanning performed through the chest following 60 cc Isovue-370 followed x 40 mL normal saline. COMPARISON :Previous CT chest from 09/25/2015. FINDINGS Between the 2 sets of images there is excellent visualization of pulmonary artery. No evidence of pulmonary embolism. Also good visualization and enhancement of the aorta. Aorta appears normal caliber with no dissection or acute findings.. [place] Chronic calcified plaque at the aortic arch noted . Minimal coronary artery calcification. Pectus excavatum accounts for the flattened appearance of the heart on the axial images. Prominent stable extensive chronic lung changes, fibrotic changes/ parenchymal densities & bronchiectatic features bilateral.: Diffuse bilateral pulmonary parenchymal opacities again noted and similar to last years study. These are mainly at the periphery of the lungs with apical pleural parenchymal scarring most notable but other areas of peripheral parenchymal and pleural scarring and fibrosis. Fibrotic changes are seen throughout but most evident peripherally and slightly more evident on the throughout the right lung than left. Associated bronchiectatic changes particularly evident the upper lobes right greater than left and to lesser degree lower lobes. . hyperinflation with attenuation of the pulmonary vessels again noted. Tracheomegaly is noted with the trachea measuring at up to. This is noted previously. 2.8 cm diameter No pleural effusions uppermost abdomen. Cholelithiasis. Multiple gallstones are upper normal thickness of the gallbladder wall fundus. Calcification at the origin of the renal arteries bilaterally most notable moderate calcification of the origin of celiac artery. IMPRESSION: 1. No evidence of pulmonary embolism 2. Chronic obstructive pulmonary disease with prominent hyperexpansion. 3. Prominent stable extensive chronic lung changes, fibrotic changes/ parenchymal densities & bronchiectatic features bilateral. 4. Tracheomegaly. 5. Ongoing screening chest studies suggested for this patient to follow these areas of density bilaterally. 6. Cholelithiasis incidentally noted
--- NOTE | 2016-11-09 16:56 | RADIOLOGY REPORT PS360 ---
CHEST-PORTABLE HISTORY: chest pain Patient Age: 66 years: Female Ordering Physician: Russel Sapp MD TECHNIQUE: AP portable upright chest COMPARISON :Previous chest film 03/19/2016 and #09/17/2015 FINDINGS COPD, hyperexpansion with abundant chronic changes. Nothing definitely acute. Hyperexpansion most evident upper lung perez with coarsening markings toward the bases. This is just above the left hemidiaphragm unchanged. Markings upper normal at the right base I believe accentuated by technique 3 densities along right peritracheal region I believe is been stable since February 2014 as well as the 2016 CT study.. Slightly accentuated today's leftward rotation of the chest. And apical pleural scarring bilaterally is similar. IMPRESSION: Basically Stable COPD Prominent Chronic changes again evident. Nothing definitely acute
[2016-11-09] MEDS ORDERED: OMEPRAZOLE20 MG PO (17:49)
--- NOTE | 2016-11-09 17:53 | Discharge Summary Standard ---
Demographics: Admit date: 11/09/16 Chief complaint: Chest pain PRIMARY DIAGNOSIS: CHEST PAIN Allergies: Coded Allergies: clindamycin (I-HIVES 11/03/16) History of present illness: History of present illness: 66-year-old white female with history of pulmonary fibrosis was seen in the emergency department today for onset of chest discomfort and rapid heart heartbeats this a.m. that would not resolve. Patient does note some chest discomfort starting in the anterior portion of the chest and radiating through to the back with deep breathing Patient relates some brief intermittent mild episodes of similar fast heart rates in the past but none that lasted this long or this intense. She denies any recent fever or chills. No nausea or vomiting or diarrhea. Patient does have a chronic dry cough that has not changed recently. Electrocardiogram in the emergency room shows sinus rhythm with RSR prime pattern and possible LEFT atrial enlargement without acute ST segment change. Initial troponin is normal. CT scan of the chest showed no evidence of pulmonary embolus nor aortic dissection. Patient was admitted to observation status and Cardiology consulted for further evaluation and recommendations. Past medical history: Family HX Diabetes Yes CAD No Hypertension No Hyperlipidemia No Cancer Yes TB No Immunization HX DT/Tetanus Unknown Flu 2015-FSN Pneumonia Received In Past TB Test in last year No General CAD? No Angina: No [place]: No Hypertension? Yes Hyperlipidemia? No CHF? No DVT? No PE? No COPD? No Asthma? No Anemia? No GERD? Yes Gastric ulcers? Yes GI Bleed? No Hernia? No Thyroid Problems? No Hypothyroidism? No CVA? Yes Seizures? No Diabetes? No Renal Insuffiency? No UTI? No Stones? No BPH? No GB Disease: No Nephritic Syndrome? No Asplenia? No Hepatitis? No Sickle Cell Disease? No Arthritis? Yes Migraines? No Cataracts? Yes Glaucoma? No MRSA? No TB? No Cancer? No More? Yes Additional hx: interstitial lung disease - followed by Dr Malcolm [facility] Past Surgical HX Previous Surgery?Y CARARACT RIGHT EYE Current home meds: Discontinued Scripts Azithromycin (Zithromax) 250 MG PO DAILY #6 TAB Prov: 03/21/16 DC: 11/09/161747 Prednisone (Prednisone 20MG) 20 MG PO DAILY #5 TAB Prov: 03/21/16 DC: 08/14/17 1748 Reported Medications Aspirin 81 MG PO DAILY Amlodipine Besylate (Amlodipine) 5 MG PO DAILY BUDESONIDE/FORMOTEROL FUMARATE (Symbicort 160-4.5 Mcg Inhaler) 1 PUFF IH BID Indomethacin 50 MG PO TID #45 Famotidine (Famotidine 20MG) 20 MG PO BID #60 Social Hx: Smoking HX Tobacco No Packs/day N/A Are you/the child exposed to second-hand smoke: No Alcohol Alcohol: No Hx of Drug Use Drug Use? No Patien't marital status is single Patient's support system is excellent Review of systems: Constitutional No: malaise, weakness. Respiratory No: no symptoms reported. Cardiovascular chest pain, palpitations Gastrointestinal/Abdominal difficulty swallowing, nausea Genitourinary No: no symptoms reported. Musculoskeletal No: no symptoms reported. Neurological No: see HPI. Exam: Lab data for last 24 hours: Laboratory Tests 11/09/16 1416: Creatine Kinase 68, CK-MB (CK-2) Rel Index 1.2, CK and CKMB Interp 0.8, Troponin I < 0.02 11/09/16 1025: B-Natriuretic Peptide 9, Amylase 46, Lipase 83, TSH 4.37 H, Free T4 Index 5.2 L, Thyroxine (T4) 6.6, T3 Uptake 32 11/09/16 1025: Sodium 143, Potassium 3.9, Chloride 107, Carbon Dioxide 28, BUN 20 H, Creatinine 0.7, Estimated Creat Clear 56, Estimated GFR (MDRD) 83, Glucose 90, Calcium 9.0, Total Bilirubin 0.8, AST 18, ALT 16, Alkaline Phosphatase 95, Creatine Kinase 68, CK and CKMB Interp 1.1, Troponin I < 0.02, Total Protein 7.5 , Albumin 3.4, Globulin 4.1 H, Albumin/Globulin Ratio 0.8 L, PT 10.0, INR 0.93 , APTT 26.8, D-Dimer 478 *H, WBC 17.9 H, RBC 4.42, Hgb 11.6 L, Hct 37.1, MCV 83.9, RDW 17.4, Plt Count 298, Gran % 84.5 H, Gran # 15.1 H, Total Counted 100 , Lymphocytes % 11.2, Monocytes % 4.3, Neutrophils 80 H, Lymphocytes (Manual) 15, Lymphocytes # 2.0, Monocytes (Manual) 5, Monocytes # 0.8, Platelet Estimate NORMAL, PUBS MCHC 31.3 L, MCH 26.2 L Additional information: Frail appearing cachectic white female. Heart rate regular, lungs rhonchorous but clear. At baseline. No edema or clubbing. Hospital Course Hospital Course: Patient was admitted, cardiac enzymes unremarkable, CTA of chest unremarkable, echocardiogram with no evidence of wall motion abnormalities. Cardiology felt this was an exacerbation of gastroesophageal reflux disease and I agree. Plan to ramp up therapy to proton pump inhibitor. Close follow-up in my office in 2 days. Medications Medications: Discharge meds are as noted. Follow up Follow up in office in: 2 DAYS with: Dewayne Choudhury MD at [phone]
[2016-11-09 18:24] VITALS: BP 123/74
== END 2016-11-09 18:30 | disposition home or self-care (01) ==
LOC: ER 10:17 → 2ND 12:17 → ER 12:17 → 2ND 12:17
PROVIDERS: Emergency Medicine
DX: R07.9 Chest pain, unspecified (principal); I10 Essential (primary) hypertension; R06.00 Dyspnea, unspecified; J84.112 Idiopathic pulmonary fibrosis; I73.00 Raynaud's syndrome without gangrene; R00.2 Palpitations; E03.9 Hypothyroidism, unspecified
CPT/HCPCS: G0378

== ENCOUNTER → 2017-03-02 | Outpatient (CLI) | payer MEDICARE, MEDICAID ==
[~2017-03-02] MED LIST changes: +FAMOTIDINE 20MG20 MG PO; +INDOMETHACIN50 MG PO; +OMEPRAZOLE20 MG PO
--- NOTE | 2017-03-05 11:01 | RADIOLOGY REPORT PS360 ---
CT CHEST W/O CONTRAST HISTORY: RECURRENT PNEUMONIA, POSTINFLAMMATORY PULMONARY FIBROSIS ORDERING PHYSICIAN: SHARYN KELSEY MD PATIENT AGE: 66 years TECHNIQUE: Axial images are obtained without contrast. Sagittal and coronal reformatted images were also generated and reviewed. COMPARISON: 11/09/2016, 09/25/2015 FINDINGS: No mediastinal or hilar mass or adenopathy is evident. There is pectus excavatum deformity with flattening of the heart in the AP plane. There is extensive common or fibrotic changes with scattered pulmonary opacities and bronchiectasis as previously described. There are scattered bilateral pleural and parenchymal opacities consistent with pulmonary fibrotic changes which are not significant change compared to the previous exam. There are a few calcified nodules. There is dilatation of the trachea and bronchi with the trachea measuring up to 2.7 cm transverse similar to the previous exam There is hyperinflation with attenuation of peripheral pulmonary vessels consistent with obstructive chronic bronchitis. Some of the parenchymal opacities are showing some minimal cavitation centrally as before. Mild thoracic scoliosis convex right. Cholelithiasis noted IMPRESSION: 1. Overall stable CT appearance of the chest. 2. Extensive pulmonary fibrosis with bronchiectasis not significantly changed. 3. Cholelithiasis
== END ==
LOC: RAD 13:00
DX: J18.9 Pneumonia, unspecified organism (principal); J84.10 Pulmonary fibrosis, unspecified